=== PATIENT | female | born 1950 | race Caucasian/White ===

== ENCOUNTER 2021-05-29 14:16 | Observation (INO) ==
--- NOTE | 2021-05-29 14:50 | DR.URIAD ---
HPI Time Seen Time Seen by Provider: 05/29/21 14:45 Complaint Chief Complaint Doctors Comments: 70 y/o female presents for evaluation, diagnosed with Covid 5 days ago. Feeling worse. Pt has been previously vaccinated, was treated with regen-Cov. Does have a h/o COPD. Having increasing weakness, generalized body aches, worsening dyspnea. Having chest pain with coughing, inspiration. Pain is sharp, worsens with cough, does not radiate. Nothing makes it better. Having fevers. Cough productive of yellow sputum. Does smoke. Chief Complaint:: Pt was diagnosed with COVID 5 days ago, had Regen-cov infusion on Wednesday, feeling worse since then. Pt reports pain with inspiration, increased weakness, sob, and cough. COVID-19 Coronavirus risk:travel/contact w/high risk person: No Has patient experienced Coronavirus symptoms: Yes Coronavirus symptoms experienced: Fever, Coughing and Shortness of Breath Reviewed Nurses Notes Reviewed: Yes Source History Provided: Patient Mode of Arrival Mode of Arrival: Ambulatory Timing Onset of Chief Complaint: 05/26/21 PMH PMH Past Medical History: Yes Past Medical History: CHF, COPD and Hypothyroidism Past Medical History Comment: osteoporosis, atrial fibrillation Past Surgical History: Yes Surgical History: Appendectomy, Cholecystectomy and Hysterectomy Past Surgical History Comment: back, R shouder replacement Family History History of Family Medical Conditions: Yes Family Medical History: Hypertension Social History Alcohol Use: None Do you use any recreational Drugs:: No Lives Where: Home Travel Risk Coronavirus risk:travel/contact w/high risk person: No Has patient experienced Coronavirus symptoms: Yes Coronavirus symptoms experienced: Fever, Coughing and Shortness of Breath Infectious screening In the last 2 months have you had wt loss of >10#?: NO Have you had fever, night sweats or hemotysis?: No Have you traveled outside the country in the last 6 months?: No Isolation: Droplet ROS Review of Systems Constitutional: Fever and Weakness Eyes: No Symptoms Reported ENTM: No Symptoms Reported Respiratoy: Productive Cough and Short of Breath Cardiovascular: Chest Pain Gastrointestinal/Abdominal: Diarrhea Genitourinary: No Symptoms Reported Neurological: Weakness Musculoskeletal: Muscle Pain Integumentary: No Symptoms Reported Hematologic/Lymphatic: No Symptoms Reported Endocrine: No Symptoms Reported Psychiatric: No Symptoms Reported All Other Systems: Reviewed and Negative PE Vital Signs Vitals: Temperature 98.2 F Pulse Rate 70 Respiratory Rate 18 Blood Pressure [Left Arm] 157/74 Blood Pressure 156/67 O2 Sat by Pulse Oximetry 95 General Limitations: No Limitations General Appearance: Alert and In No Apparent Distress Head Head Exam: Normal Inspection Eyes Eye exam: Normal Appearance ENT ENT Exam: Normal Exam Neck Neck Exam: Normal Inspection, Full ROM and Other (no JVD) Chest Chest Inspection: Normal Inspection Respiratory Respiratory Exam: Bilateral: Rales (at bases) Cardiovascular Cardiovascular Exam: Regular Rate, Normal Rhythm and Normal Heart Sounds Abdominal Exam Abdominal Exam: Normal Inspection, Normal Bowel Sounds and Soft; negative Tenderness Extremeties Extremities Exam: Normal Inspection and Full ROM; negative Edema Back Back Exam: Normal Inspection Neurologic Neurological Exam: Alert, Oriented X3 and CN II-XII Intact; negative Motor Sensory Deficit Psychiatric Psychiatric Exam: Normal Affect Skin Skin Exam: Warm and Dry MDM Differential Diagnosis Differential Diagnosis: Pneumonia (Covid, PE, CHF, exacerbation COPD) COURSE Treatment Treatment: 70 y/o female, h/o COPD, CHF, has been ill with Covid x 5 days, is feeling worse. W/u initiated. 1600 - pO2 low at 51, pulse ox 89% on RA. CXR with mild increased bilateral markings. Probable Covid pneumonia on top of COPD. Labs otherwise acceptable. Discussed findings with pt. Will place on O2, treat with Remdesivir, restart (received initial dose 4 days ago). Will admit for further treatment. Discussed with Dr Cedillo, salesperson books, accepts the admisson. ROR Labs Reviewed Result Diagrams: 05/29/21 15:06 05/29/21 15:06 Laboratory: WBC 7.8 X10^3/uL (3.6-10.0) 05/29/21 15:06 RBC 3.89 X10^6/uL (3.5-5.4) 05/29/21 15:06 Hgb 12.1 g/dL (12.0-16.0) 05/29/21 15:06 Hct 35.6 % (36.0-47.0) L 05/29/21 15:06 MCV 91.6 fL (80.0-100.0) 05/29/21 15:06 MCH 31.1 pg (27.0-34.0) 05/29/21 15:06 MCHC 33.9 g/dL (33.0-35.0) 05/29/21 15:06 RDW 14.3 % (11.6-16.5) 05/29/21 15:06 Plt Count 263 X10^3/uL (150.0-450.0) 05/29/21 15:06 MPV 7.5 fL (7.4-11.0) 05/29/21 15:06 Neut % (Auto) 81.0 % (42.0-75.0) H 05/29/21 15:06 Lymph % (Auto) 10.1 % (21.0-51.0) L 05/29/21 15:06 [place] % (Auto) 7.4 % (0.0-13.0) 05/29/21 15:06 Eos % (Auto) 1.2 % (0.9-2.9) 05/29/21 15:06 Baso % (Auto) 0.3 % (0.2-1.0) 05/29/21 15:06 Neut # (Auto) 6.4 x10^3/uL (2.2-4.8) H 05/29/21 15:06 Lymph # (Auto) 0.8 X10^3/uL (1.3-2.9) L 05/29/21 15:06 [place] # (Auto) 0.6 x10^3/uL (0.3-0.8) 05/29/21 15:06 Eos # (Auto) 0.1 x10^3/uL (0.0-0.2) 05/29/21 15:06 Baso # (Auto) 0.0 X10^3/uL (0.0-0.1) 05/29/21 15:06 Absolute Nucleated RBC 0.0 /100WBC 05/29/21 15:06 D-Dimer 0.48 ug/ml (0.0-0.57) 05/29/21 15:06 Sample Site Lb 05/29/21 15:10 ABG pH 7.490 (7.35-7.45) H 05/29/21 15:10 ABG pCO2 48.0 mmHg (35.0-45.0) H 05/29/21 15:10 ABG pO2 51.0 mmHg (80.0-100.0) L 05/29/21 15:10 ABG HCO3 36.6 mmol/L (22-26) H* 05/29/21 15:10 ABG O2 Saturation 89.0 % (90-100) L 05/29/21 15:10 ABG Base Excess 11.6 mmol/L (-2.0-2.0) H 05/29/21 15:10 Oswaldo Test Pos 05/29/21 15:10 A-a Gradient Not Reportable 05/29/21 15:10 FiO2 21 05/29/21 15:10 Blood Gas Comments Pt chris well cdn 05/29/21 15:10 Sodium 140 mmol/L (136-145) 05/29/21 15:06 Corrected Sodium 141 mmol/L (136-145) 05/29/21 15:06 Potassium 3.8 mmol/L (3.5-5.1) 05/29/21 15:06 Chloride 100 mmol/L (98-107) 05/29/21 15:06 Carbon Dioxide 32.4 mmol/L (21-32) H 05/29/21 15:06 BUN 36 mg/dL (7-18) H 05/29/21 15:06 Creatinine 1.40 mg/dL (0.55-1.02) H 05/29/21 15:06 Est GFR (MDRD) Af Amer 48 (>60) L 05/29/21 15:06 Est GFR (MDRD) Non-Af 39 (>60) L 05/29/21 15:06 Glucose 122 mg/dL (65-99) H 05/29/21 15:06 Calcium 8.8 mg/dL (8.5-10.1) 05/29/21 15:06 Corrected Calcium TNP 05/29/21 15:06 Total Bilirubin 0.40 mg/dL (0.2-1.0) 05/29/21 15:06 AST 20 Units/L (15-37) 05/29/21 15:06 ALT 22 Units/L (12-78) 05/29/21 15:06 Alkaline Phosphatase 84 Units/L (46-116) 05/29/21 15:06 Creatine Kinase 53 Units/L (26-192) 05/29/21 15:06 CK-MB (CK-2) 1.6 ng/mL (0-4.0) 05/29/21 15:06 CK/CKMB % Calc 3.0 % (<4) 05/29/21 15:06 Troponin I < 0.02 ng/mL (0-1.5) 05/29/21 15:06 B-Natriuretic Peptide 84.6 pg/mL (0-79) H 05/29/21 15:06 Total Protein 7.4 g/dL (6.4-8.2) 05/29/21 15:06 Albumin 3.8 g/dL (3.4-5.0) 05/29/21 15:06 Globulin 3.6 g/dL (2.5-4.5) 05/29/21 15:06 Albumin/Globulin Ratio 1.1 Ratio (1.1-2.1) 05/29/21 15:06 Lipase 114 Units/L (73-393) 05/29/21 15:06 EKG Rate: 70 [place]: Normal Rhythm: NSR Block: LBBB ST: Nonsp Opioid Opioid Risk Tool Age (Jalen box if 16-45): No History of Preadolescent Sexual Abuse: No Total: 0 Total Score Risk Category: Low Risk Copyright: Lc CANO predicting aberrant behaviors Diagnosis Discharge Problem: Pneumonia due to COVID-19 virus, Hypoxia Instructions Forms: Precautions for COVID19 [facility] Social Distancing
[2021-05-29] MEDS ORDERED: NS 500 ML IV 500 ML IV ONE ×2 (14:53→15:08)
[2021-05-29 15:14] LABS: BASOPHILS % (AUTO) 0.3 % (0.2-1.0); EOSINOPHILS # (AUTO) 0.1 x10^3/uL (0.0-0.2); EOSINOPHILS % (AUTO) 1.2 % (0.9-2.9); HEMATOCRIT 35.6 % (36.0-47.0); HEMOGLOBIN 12.1 g/dL (12.0-16.0); LYMPHOCYTES # (AUTO) 0.8 X10^3/uL (1.3-2.9); LYMPHOCYTES % (AUTO) 10.1 % (21.0-51.0); MEAN CORPUSCULAR HEMOGLOBIN 31.1 pg (27.0-34.0); MEAN CORPUSCULAR HGB CONC 33.9 g/dL (33.0-35.0); MEAN CORPUSCULAR VOLUME 91.6 fL (80.0-100.0); MEAN PLATELET VOLUME 7.5 fL (7.4-11.0); MONOCYTES # (AUTO) 0.6 x10^3/uL (0.3-0.8); MONOCYTES % (AUTO) 7.4 % (0.0-13.0); NEUTROPHILS # (AUTO) 6.4 x10^3/uL (2.2-4.8); PLATELET COUNT 263 X10^3/uL (150.0-450.0); RED BLOOD COUNT 3.89 X10^6/uL (3.5-5.4); RED CELL DISTRIBUTION WIDTH 14.3 % (11.6-16.5); WHITE BLOOD COUNT 7.8 X10^3/uL (3.6-10.0)
[2021-05-29 15:16] LABS: ABG BASE EXCESS 11.6 mmol/L (-2.0-2.0)
[2021-05-29 15:17] LABS: ABG HCO3 36.6 mmol/L (22-26)
[2021-05-29 15:19] LABS: ABG ALLEN TEST POS
[2021-05-29 15:36] LABS: ALANINE AMINOTRANSFERASE 22 Units/L (12-78); ALBUMIN 3.8 g/dL (3.4-5.0); ALKALINE PHOSPHATASE 84 Units/L (46-116); ASPARTATE AMINO TRANSFERASE 20 Units/L (15-37); BLOOD UREA NITROGEN 36 mg/dL (7-18); CALCIUM 8.8 mg/dL (8.5-10.1); CARBON DIOXIDE 32.4 mmol/L (21-32); CHLORIDE 100 mmol/L (98-107); COR NA(FOR HYPERGLY) 141 mmol/L (136-145); CREATINE KINASE 53 Units/L (26-192); CREATINE KINASE MB 1.6 ng/mL (0-4.0); LIPASE 114 Units/L (73-393); SODIUM 140 mmol/L (136-145); TOTAL PROTEIN 7.4 g/dL (6.4-8.2); TROPONIN I < 0.02 ng/mL (0-1.5); eGFR NON BLACK RACES 39 (>60)
[2021-05-29] MEDS ORDERED: REMDESIVIR 200 MG in NS 250 ML IV 250 ML IV ONE (15:39)
[2021-05-29] MEDS ORDERED: SOLU-Medrol 125 MG VIAL IVP ONE (15:46)
[2021-05-29] MEDS ORDERED: TYLENOL 325 MG TAB PO ONE ×2 (15:46→15:48)
[2021-05-29] MEDS ORDERED: BENADRYL INJ 50 MG VIAL IVP ONE (15:46)
[2021-05-29] MEDS ORDERED: REMDESIVIR IV ONE (15:48)
[2021-05-29] MEDS ORDERED: BENADRYL INJ 50 MG VIAL ONE (15:48)
[2021-05-29] MEDS ORDERED: SOLU-Medrol 125 MG VIAL ONE (15:48)
[2021-05-29] MEDS ORDERED: NS 250 ML IV 250 ML IV ONE (15:49)
[2021-05-29] MEDS ORDERED: ZANAFLEX PO PRN (16:08)
[2021-05-29] MEDS ORDERED: ZITHROMAX TAB 250 MG PO ONE (16:13)
[2021-05-29 17:48] VITALS: BMI 21.4
[2021-05-29] MEDS ORDERED: COLACE CAP 100 MG PO PRN (18:35)
[2021-05-29] MEDS ORDERED: PULMICORT NEB TX 0.5 MG NEB ONE (19:54)
[2021-05-29] MEDS ORDERED: BROVANA ONE (19:55)
[2021-05-29] MEDS: TESSALON PERLES PO PRN (20:11)
[2021-05-29] MEDS: BROVANA IN SCH (20:27)
[2021-05-29] MEDS: PULMICORT NEB TX 0.5 MG NEB SCH (20:27)
[2021-05-29] MEDS ORDERED: BROVANA IN SCH (21:00)
[2021-05-29] MEDS ORDERED: PULMICORT NEB TX 0.5 MG NEB SCH (21:00)
[2021-05-29] MEDS: SOLU-Medrol 40 MG VIAL IVP SCH (21:09)
[2021-05-30] MEDS: ULTRAM PO PRN ×2 (02:22→09:17)
[2021-05-30] MEDS ORDERED: NORCO 5/325 MG TAB PO ONE (04:12)
[2021-05-30] MEDS ORDERED: NORCO 5/325 MG TAB ONE (04:13)
[2021-05-30 04:50] LABS: BASOPHILS # (AUTO) 0.1 X10^3/uL (0.0-0.1); BASOPHILS % (AUTO) 0.6 % (0.2-1.0); HEMATOCRIT 32.6 % (36.0-47.0); HEMOGLOBIN 11.3 g/dL (12.0-16.0); LYMPHOCYTES # (AUTO) 0.8 X10^3/uL (1.3-2.9); LYMPHOCYTES % (AUTO) 9.1 % (21.0-51.0); MEAN CORPUSCULAR HEMOGLOBIN 31.4 pg (27.0-34.0); MEAN CORPUSCULAR HGB CONC 34.5 g/dL (33.0-35.0); MEAN PLATELET VOLUME 7.9 fL (7.4-11.0); MONOCYTES # (AUTO) 0.3 x10^3/uL (0.3-0.8); MONOCYTES % (AUTO) 3.6 % (0.0-13.0); NEUTROPHILS % (AUTO) 86.7 % (42.0-75.0); PLATELET COUNT 238 X10^3/uL (150.0-450.0); RED BLOOD COUNT 3.58 X10^6/uL (3.5-5.4); RED CELL DISTRIBUTION WIDTH 14.4 % (11.6-16.5); WHITE BLOOD COUNT 9.2 X10^3/uL (3.6-10.0)
[2021-05-30 05:09] LABS: ALBUMIN 3.2 g/dL (3.4-5.0); CALCIUM 8.5 mg/dL (8.5-10.1); CARBON DIOXIDE 31.1 mmol/L (21-32); COR CA(FOR HYPOALB) 9.1 mg/dL (8.5-10.1); CREATININE 1.21 mg/dL (0.55-1.02); TOTAL PROTEIN 6.7 g/dL (6.4-8.2)
[2021-05-30 05:11] LABS: CREATINE KINASE 47 Units/L (26-192); CREATINE KINASE MB 1.9 ng/mL (0-4.0); TROPONIN I < 0.02 ng/mL (0-1.5)
[2021-05-30] MEDS: SOLU-Medrol 40 MG VIAL IVP SCH ×3 (06:10→21:05)
[2021-05-30] MEDS: BROVANA IN SCH ×2 (07:55→20:28)
[2021-05-30] MEDS: PULMICORT NEB TX 0.5 MG NEB SCH ×2 (07:55→20:28)
[2021-05-30] MEDS ORDERED: CELEXA PO SCH (09:00)
[2021-05-30] MEDS ORDERED: MOBIC TAB 15 MG PO SCH (09:00)
[2021-05-30] MEDS ORDERED: MIACALCIN NASAL SPRAY NAS SCH (09:00)
[2021-05-30] MEDS ORDERED: PROTONIX TAB 40 MG PO SCH (09:00)
[2021-05-30] MEDS: ELIQUIS PO SCH ×2 (09:08→21:04)
[2021-05-30] MEDS: ZITHROMAX TAB 250 MG PO SCH (09:09)
[2021-05-30] MEDS: REMDESIVIR 100 MG in NS 100 ML IV + SPIKE MINIBAG* 120 ML IV SCH (09:09)
--- NOTE | 2021-05-30 13:23 | DR.H&P ---
H&P History & Physical for Day of: H&P Date: 05/29/21 Chief Complaint Chief Complaint: SOB Allergies Allergies Allergy/AdvReac Type Severity Reaction Status Date / Time codeine Allergy Verified 05/29/21 14:16 morphine Allergy Verified 05/29/21 14:16 History of Present Illness History of Present Illness: 70 yo wf with recent Covid-19 diagnoses. She received Regen Cov earlier this weeks but has not completely gotten well yet. In the ER she has a low O2 sat in the 90's. She was admitted to receive Remdesivir protocol. Past Medical History Past Medical History: CHF, COPD, Depression and Hypothyroidism Past Surgical History Surgical History: Appendectomy, Cholecystectomy and Hysterectomy Family History Family Medical History: Hypertension Social History Does patient currently use any type of tobacco product: Yes Have you used tobacco products in the last 12 months: Yes Type of Tobacco Use: Cigarettes Alcohol Use: None Medications Home Medications: codeine Allergy (Verified 05/29/21 14:16) morphine Allergy (Verified 05/29/21 14:16) CONTINUE taking the following medications apixaban [Eliquis] 5 mg PO BID 05/29/21 [History] furosemide 40 mg PO BID 05/29/21 [History] duloxetine [Cymbalta] 60 mg PO BID 05/30/21 [History] levothyroxine [Synthroid] 50 mcg PO DAILY 05/30/21 [History] lisinopril [Zestril] 10 mg PO DAILY 05/30/21 [History] metoprolol succinate [Toprol XL] 25 mg PO DAILY 05/30/21 [History] mirtazapine [Remeron] 15 mg PO HS 05/30/21 [History] oxycodone 20 mg PO TID 05/30/21 [History] sertraline [Zoloft] 100 mg PO DAILY 05/30/21 [History] tizanidine [Zanaflex] 4 mg PO BID PRN 05/30/21 [History] Labs Result Diagrams: 05/30/21 04:32 05/30/21 04:32 Labs: Laboratory WBC 9.2 X10^3/uL (3.6-10.0) 05/30/21 04:32 RBC 3.58 X10^6/uL (3.5-5.4) 05/30/21 04:32 Hgb 11.3 g/dL (12.0-16.0) L 05/30/21 04:32 Hct 32.6 % (36.0-47.0) L 05/30/21 04:32 MCV 91.0 fL (80.0-100.0) 05/30/21 04:32 MCH 31.4 pg (27.0-34.0) 05/30/21 04:32 MCHC 34.5 g/dL (33.0-35.0) 05/30/21 04:32 RDW 14.4 % (11.6-16.5) 05/30/21 04:32 Plt Count 238 X10^3/uL (150.0-450.0) 05/30/21 04:32 MPV 7.9 fL (7.4-11.0) 05/30/21 04:32 Neut % (Auto) 86.7 % (42.0-75.0) H 05/30/21 04:32 Lymph % (Auto) 9.1 % (21.0-51.0) L 05/30/21 04:32 [place] % (Auto) 3.6 % (0.0-13.0) 05/30/21 04:32 Eos % (Auto) 0.0 % (0.9-2.9) L 05/30/21 04:32 Baso % (Auto) 0.6 % (0.2-1.0) 05/30/21 04:32 Neut # (Auto) 8.0 x10^3/uL (2.2-4.8) H 05/30/21 04:32 Lymph # (Auto) 0.8 X10^3/uL (1.3-2.9) L 05/30/21 04:32 [place] # (Auto) 0.3 x10^3/uL (0.3-0.8) 05/30/21 04:32 Eos # (Auto) 0.0 x10^3/uL (0.0-0.2) 05/30/21 04:32 Baso # (Auto) 0.1 X10^3/uL (0.0-0.1) 05/30/21 04:32 Absolute Nucleated RBC 0.1 /100WBC 05/30/21 04:32 D-Dimer 0.48 ug/ml (0.0-0.57) 05/29/21 15:06 Sample Site Lb 05/29/21 15:10 ABG pH 7.490 (7.35-7.45) H 05/29/21 15:10 ABG pCO2 48.0 mmHg (35.0-45.0) H 05/29/21 15:10 ABG pO2 51.0 mmHg (80.0-100.0) L 05/29/21 15:10 ABG HCO3 36.6 mmol/L (22-26) H* 05/29/21 15:10 ABG O2 Saturation 89.0 % (90-100) L 05/29/21 15:10 ABG Base Excess 11.6 mmol/L (-2.0-2.0) H 05/29/21 15:10 Oswaldo Test Pos 05/29/21 15:10 A-a Gradient Not Reportable 05/29/21 15:10 FiO2 21 05/29/21 15:10 Blood Gas Comments Pt chris well cdn 05/29/21 15:10 Sodium 139 mmol/L (136-145) 05/30/21 04:32 Corrected Sodium 140 mmol/L (136-145) 05/30/21 04:32 Potassium 4.4 mmol/L (3.5-5.1) 05/30/21 04:32 Chloride 102 mmol/L (98-107) 05/30/21 04:32 Carbon Dioxide 31.1 mmol/L (21-32) 05/30/21 04:32 BUN 34 mg/dL (7-18) H 05/30/21 04:32 Creatinine 1.21 mg/dL (0.55-1.02) H 05/30/21 04:32 Est GFR (MDRD) Af Amer 56 (>60) L 05/30/21 04:32 Est GFR (MDRD) Non-Af 46 (>60) L 05/30/21 04:32 Glucose 125 mg/dL (65-99) H 05/30/21 04:32 Calcium 8.5 mg/dL (8.5-10.1) 05/30/21 04:32 Corrected Calcium 9.1 mg/dL (8.5-10.1) 05/30/21 04:32 Total Bilirubin 0.30 mg/dL (0.2-1.0) 05/30/21 04:32 AST 19 Units/L (15-37) 05/30/21 04:32 ALT 17 Units/L (12-78) 05/30/21 04:32 Alkaline Phosphatase 74 Units/L (46-116) 05/30/21 04:32 Creatine Kinase 47 Units/L (26-192) 05/30/21 04:32 CK-MB (CK-2) 1.9 ng/mL (0-4.0) 05/30/21 04:32 CK/CKMB % Calc 4.0 % (<4) 05/30/21 04:32 Troponin I < 0.02 ng/mL (0-1.5) 05/30/21 04:32 B-Natriuretic Peptide 84.6 pg/mL (0-79) H 05/29/21 15:06 Total Protein 6.7 g/dL (6.4-8.2) 05/30/21 04:32 Albumin 3.2 g/dL (3.4-5.0) L 05/30/21 04:32 Globulin 3.5 g/dL (2.5-4.5) 05/30/21 04:32 Albumin/Globulin Ratio 0.9 Ratio (1.1-2.1) L 05/30/21 04:32 Lipase 114 Units/L (73-393) 05/29/21 15:06 Review of Systems Constitutional: Sweats, Weakness and Malaise Eyes: No Symptoms Reported ENT: Nose Congestion Respiratory: Cough, Dry, Shortness of Breath and SOB with Excertion Cardiovascular: Chest Pain Gastrointestinal: No Symptoms Reported Genitourinary: No Symptoms Reported Musculoskeletal: Other (Generalized pain.) Neurological: Weakness Physical Exam Vital Signs: Temperature 98.2 F Pulse Rate [Left Brachial] 72 Pulse Rate 70 Respiratory Rate 16 Blood Pressure [Left Arm] 156/70 Blood Pressure 156/67 O2 Sat by Pulse Oximetry 96 Oriented: Normal Eyes: Normal Ear: Normal Nose: Injected Throat: Normal Respiratory: Diminished Throughout Cardiovascular: Normal Auscultation: Bowel Sounds: Normal Palpation: Normal Tenderness: Normal Skin: Normal Musculoskeletal: Normal Psychiatric: Anxiety Mood Description: Anxious Affect: Anxious Speech Pattern: Clear and Appropriate Assessment/Plan (1) COVID-19: Status: Acute Plan: Regen Cov protocol. (2) Hypoxia: Status: Acute Plan: Nebs and IV Solumedrol (3) Pleurisy: Status: Acute Plan: Resume patients Oxycodone. (4) HTN (hypertension): Status: Acute Plan: monitor bp. Review H&P Reviewed: Yes Patient was examined?: Yes
--- NOTE | 2021-05-30 13:27 | PCM.PROG ---
Progress Note Progress Note for Day of Date of Exam: 05/30/21 Subjective Subjective: Feels better but still has chest pain with deep breathing and coughing. Pt seems anxious. Past Medical Family Social History Past Med/Fam/Surg Hx: No changes since H&P Allergies: Allergies codeine Allergy (Verified 05/29/21 14:16) morphine Allergy (Verified 05/29/21 14:16) Review of Systems ROS: No change since H&P Vital Signs and I&O's Vital Signs: Temperature 98.2 F Pulse Rate [Left Brachial] 72 Pulse Rate 70 Respiratory Rate 16 Blood Pressure [Left Arm] 156/70 Blood Pressure 156/67 O2 Sat by Pulse Oximetry 96 Intake and Output: Intake & Output 05/28/21 05/29/21 05/30/21 05/31/21 11:59 11:59 11:59 11:59 Intake Total 280 / 280 Balance 280 / 280 Physical Exam Oriented: Normal Eyes: Normal Ear: Normal Nose: Injected Throat: Normal Respiratory: Generalized and Diminished Cardiovascular: Normal Auscultation: Bowel Sounds: Normal Tenderness: Normal Skin: Normal Musculoskeletal: Normal Psychiatric: Anxiety Mood Description: Anxious Affect: Anxious Speech Pattern: Clear and Appropriate Laboratory and Diagnostics Result Diagrams: 05/30/21 04:32 05/30/21 04:32 Labs: Laboratory WBC 9.2 X10^3/uL (3.6-10.0) 05/30/21 04:32 RBC 3.58 X10^6/uL (3.5-5.4) 05/30/21 04:32 Hgb 11.3 g/dL (12.0-16.0) L 05/30/21 04:32 Hct 32.6 % (36.0-47.0) L 05/30/21 04:32 MCV 91.0 fL (80.0-100.0) 05/30/21 04:32 MCH 31.4 pg (27.0-34.0) 05/30/21 04:32 MCHC 34.5 g/dL (33.0-35.0) 05/30/21 04:32 RDW 14.4 % (11.6-16.5) 05/30/21 04:32 Plt Count 238 X10^3/uL (150.0-450.0) 05/30/21 04:32 MPV 7.9 fL (7.4-11.0) 05/30/21 04:32 Neut % (Auto) 86.7 % (42.0-75.0) H 05/30/21 04:32 Lymph % (Auto) 9.1 % (21.0-51.0) L 05/30/21 04:32 [place] % (Auto) 3.6 % (0.0-13.0) 05/30/21 04:32 Eos % (Auto) 0.0 % (0.9-2.9) L 05/30/21 04:32 Baso % (Auto) 0.6 % (0.2-1.0) 05/30/21 04:32 Neut # (Auto) 8.0 x10^3/uL (2.2-4.8) H 05/30/21 04:32 Lymph # (Auto) 0.8 X10^3/uL (1.3-2.9) L 05/30/21 04:32 [place] # (Auto) 0.3 x10^3/uL (0.3-0.8) 05/30/21 04:32 Eos # (Auto) 0.0 x10^3/uL (0.0-0.2) 05/30/21 04:32 Baso # (Auto) 0.1 X10^3/uL (0.0-0.1) 05/30/21 04:32 Absolute Nucleated RBC 0.1 /100WBC 05/30/21 04:32 D-Dimer 0.48 ug/ml (0.0-0.57) 05/29/21 15:06 Sample Site Lb 05/29/21 15:10 ABG pH 7.490 (7.35-7.45) H 05/29/21 15:10 ABG pCO2 48.0 mmHg (35.0-45.0) H 05/29/21 15:10 ABG pO2 51.0 mmHg (80.0-100.0) L 05/29/21 15:10 ABG HCO3 36.6 mmol/L (22-26) H* 05/29/21 15:10 ABG O2 Saturation 89.0 % (90-100) L 05/29/21 15:10 ABG Base Excess 11.6 mmol/L (-2.0-2.0) H 05/29/21 15:10 Oswaldo Test Pos 05/29/21 15:10 A-a Gradient Not Reportable 05/29/21 15:10 FiO2 21 05/29/21 15:10 Blood Gas Comments Pt chris well cdn 05/29/21 15:10 Sodium 139 mmol/L (136-145) 05/30/21 04:32 Corrected Sodium 140 mmol/L (136-145) 05/30/21 04:32 Potassium 4.4 mmol/L (3.5-5.1) 05/30/21 04:32 Chloride 102 mmol/L (98-107) 05/30/21 04:32 Carbon Dioxide 31.1 mmol/L (21-32) 05/30/21 04:32 BUN 34 mg/dL (7-18) H 05/30/21 04:32 Creatinine 1.21 mg/dL (0.55-1.02) H 05/30/21 04:32 Est GFR (MDRD) Af Amer 56 (>60) L 05/30/21 04:32 Est GFR (MDRD) Non-Af 46 (>60) L 05/30/21 04:32 Glucose 125 mg/dL (65-99) H 05/30/21 04:32 Calcium 8.5 mg/dL (8.5-10.1) 05/30/21 04:32 Corrected Calcium 9.1 mg/dL (8.5-10.1) 05/30/21 04:32 Total Bilirubin 0.30 mg/dL (0.2-1.0) 05/30/21 04:32 AST 19 Units/L (15-37) 05/30/21 04:32 ALT 17 Units/L (12-78) 05/30/21 04:32 Alkaline Phosphatase 74 Units/L (46-116) 05/30/21 04:32 Creatine Kinase 47 Units/L (26-192) 05/30/21 04:32 CK-MB (CK-2) 1.9 ng/mL (0-4.0) 05/30/21 04:32 CK/CKMB % Calc 4.0 % (<4) 05/30/21 04:32 Troponin I < 0.02 ng/mL (0-1.5) 05/30/21 04:32 B-Natriuretic Peptide 84.6 pg/mL (0-79) H 05/29/21 15:06 Total Protein 6.7 g/dL (6.4-8.2) 05/30/21 04:32 Albumin 3.2 g/dL (3.4-5.0) L 05/30/21 04:32 Globulin 3.5 g/dL (2.5-4.5) 05/30/21 04:32 Albumin/Globulin Ratio 0.9 Ratio (1.1-2.1) L 05/30/21 04:32 Lipase 114 Units/L (73-393) 05/29/21 15:06 Radiology Reviewed: Yes Plan (1) COVID-19: Status: Acute Narrative Support Text: Improving. Possible discharge home in am. Plan: Regen Cov protocol. (2) Hypoxia: Status: Acute Narrative Support Text: Much improved. Plan: Nebs and IV Solumedrol. (3) Pleurisy: Status: Acute Plan: Resume patients Oxycodone. (4) HTN (hypertension): Status: Acute Plan: Resume home BP meds. (5) Dehydration: Status: Acute Narrative Support Text: Improving. Plan: Continue IVF hydration.
[2021-05-30] MEDS: TOPROL XL PO SCH (13:30)
[2021-05-30] MEDS: ZESTRIL TAB 10 MG PO SCH (13:31)
[2021-05-30] MEDS: SYNTHROID 50 mcg TAB PO SCH (13:31)
[2021-05-30] MEDS: ROXICODONE TAB 5 MG PO SCH ×2 (13:31→21:04)
[2021-05-30] MEDS: CYMBALTA PO SCH ×2 (13:31→21:03)
[2021-05-30] MEDS: REMERON PO SCH (21:04)
[2021-05-31] MEDS: ROXICODONE TAB 5 MG PO SCH ×3 (05:01→22:00)
[2021-05-31] MEDS: SOLU-Medrol 40 MG VIAL IVP SCH ×3 (05:01→22:00)
[2021-05-31 05:13] LABS: BASOPHILS % (AUTO) 0.2 % (0.2-1.0); HEMATOCRIT 31.9 % (36.0-47.0); HEMOGLOBIN 10.8 g/dL (12.0-16.0); LYMPHOCYTES # (AUTO) 0.6 X10^3/uL (1.3-2.9); LYMPHOCYTES % (AUTO) 4.5 % (21.0-51.0); MEAN CORPUSCULAR HEMOGLOBIN 30.9 pg (27.0-34.0); MEAN CORPUSCULAR HGB CONC 33.9 g/dL (33.0-35.0); MEAN PLATELET VOLUME 8.1 fL (7.4-11.0); MONOCYTES # (AUTO) 0.7 x10^3/uL (0.3-0.8); MONOCYTES % (AUTO) 5.2 % (0.0-13.0); NEUTROPHILS # (AUTO) 11.4 x10^3/uL (2.2-4.8); NEUTROPHILS % (AUTO) 90.1 % (42.0-75.0); PLATELET COUNT 259 X10^3/uL (150.0-450.0); RED CELL DISTRIBUTION WIDTH 14.5 % (11.6-16.5); WHITE BLOOD COUNT 12.7 X10^3/uL (3.6-10.0)
[2021-05-31 05:36] LABS: METAMYELOCYTES % 4; PLATELET MORPHOLOGY COMMENT NORMAL (NORMAL)
[2021-05-31 05:47] LABS: ALBUMIN 2.8 g/dL (3.4-5.0); CALCIUM 8.4 mg/dL (8.5-10.1); CARBON DIOXIDE 31.3 mmol/L (21-32); COR CA(FOR HYPOALB) 9.4 mg/dL (8.5-10.1); CREATININE 1.15 mg/dL (0.55-1.02); TOTAL PROTEIN 6.1 g/dL (6.4-8.2)
--- NOTE | 2021-05-31 08:35 | RAD ---
HISTORYCOVID PNEU,ONIA HX: HTN, CHF SX: APPENDECTOMY, GB, HYSTERECTOMYSTUDYCHEST, 1 [id number] silhouette is normal in size. Lungs are hyperinflated with stable coarsened interstitial markings, suggestive of COPD. No focal infiltrate or significant effusion is identified. No pneumothorax.IMPRESSIONNo acute cardiopulmonary abnormality.Stable findings suggestive of COPD.Electronically signed by: FRANK SIMMS (May 31, 2021 08:33:11)
[2021-05-31] MEDS: CYMBALTA PO SCH ×2 (08:39→22:00)
[2021-05-31] MEDS: ZITHROMAX TAB 250 MG PO SCH (08:39)
[2021-05-31] MEDS: SYNTHROID 50 mcg TAB PO SCH (08:39)
[2021-05-31] MEDS: ELIQUIS PO SCH ×2 (08:39→22:00)
[2021-05-31] MEDS: REMDESIVIR 100 MG in NS 100 ML IV + SPIKE MINIBAG* 120 ML IV SCH (08:40)
[2021-05-31] MEDS: ZESTRIL TAB 10 MG PO SCH (08:40)
[2021-05-31] MEDS: TOPROL XL PO SCH (08:40)
[2021-05-31] MEDS: ULTRAM PO PRN ×2 (08:45→18:11)
[2021-05-31] MEDS: BROVANA IN SCH ×2 (09:00→20:51)
[2021-05-31] MEDS: PULMICORT NEB TX 0.5 MG NEB SCH ×2 (09:00→20:51)
[2021-05-31 10:51] LABS: CKMB % 5.4 % (<4); CREATINE KINASE 39 Units/L (26-192); CREATINE KINASE MB 2.1 ng/mL (0-4.0); TROPONIN I < 0.02 ng/mL (0-1.5)
[2021-05-31 11:23] LABS: ABG BASE EXCESS 8.4 mmol/L (-2.0-2.0)
[2021-05-31 11:31] LABS: ABG ALLEN TEST POSITIVE
[2021-05-31] MEDS: MAALOX or MYLANTA PO PRN (20:18)
[2021-05-31] MEDS: REMERON PO SCH (22:00)
[2021-06-01] MEDS: MAALOX or MYLANTA PO PRN ×2 (00:49→22:43)
[2021-06-01] MEDS: TESSALON PERLES PO PRN ×2 (00:49→21:15)
[2021-06-01 04:47] LABS: BASOPHILS % (AUTO) 0.2 % (0.2-1.0); HEMATOCRIT 31.9 % (36.0-47.0); HEMOGLOBIN 10.8 g/dL (12.0-16.0); LYMPHOCYTES # (AUTO) 0.6 X10^3/uL (1.3-2.9); LYMPHOCYTES % (AUTO) 4.6 % (21.0-51.0); MEAN CORPUSCULAR HEMOGLOBIN 31.2 pg (27.0-34.0); MEAN CORPUSCULAR VOLUME 91.7 fL (80.0-100.0); MEAN PLATELET VOLUME 8.1 fL (7.4-11.0); MONOCYTES # (AUTO) 0.5 x10^3/uL (0.3-0.8); MONOCYTES % (AUTO) 3.9 % (0.0-13.0); NEUTROPHILS # (AUTO) 12.2 x10^3/uL (2.2-4.8); NEUTROPHILS % (AUTO) 91.3 % (42.0-75.0); PLATELET COUNT 250 X10^3/uL (150.0-450.0); RED BLOOD COUNT 3.48 X10^6/uL (3.5-5.4); RED CELL DISTRIBUTION WIDTH 14.5 % (11.6-16.5); WHITE BLOOD COUNT 13.4 X10^3/uL (3.6-10.0)
[2021-06-01 04:56] LABS: ALBUMIN 2.7 g/dL (3.4-5.0); CALCIUM 8.3 mg/dL (8.5-10.1); CARBON DIOXIDE 33.6 mmol/L (21-32); COR CA(FOR HYPOALB) 9.3 mg/dL (8.5-10.1); CREATININE 1.32 mg/dL (0.55-1.02); TOTAL PROTEIN 5.9 g/dL (6.4-8.2)
[2021-06-01 05:12] LABS: PLATELET MORPHOLOGY COMMENT NORMAL (NORMAL)
[2021-06-01] MEDS: SOLU-Medrol 40 MG VIAL IVP SCH ×3 (05:52→21:15)
[2021-06-01] MEDS: ROXICODONE TAB 5 MG PO SCH ×3 (06:34→21:15)
[2021-06-01] MEDS: BROVANA IN SCH ×2 (08:20→21:15)
[2021-06-01] MEDS: PULMICORT NEB TX 0.5 MG NEB SCH ×2 (08:20→21:15)
[2021-06-01] MEDS: TOPROL XL PO SCH (08:36)
[2021-06-01] MEDS: CYMBALTA PO SCH ×2 (08:36→20:50)
[2021-06-01] MEDS: SYNTHROID 50 mcg TAB PO SCH (08:36)
[2021-06-01] MEDS: ZITHROMAX TAB 250 MG PO SCH (08:36)
[2021-06-01] MEDS: ZESTRIL TAB 10 MG PO SCH (08:36)
[2021-06-01] MEDS: ELIQUIS PO SCH ×2 (08:36→20:50)
[2021-06-01] MEDS: REMDESIVIR 100 MG in NS 100 ML IV + SPIKE MINIBAG* 120 ML IV SCH (08:36)
[2021-06-01] MEDS ORDERED: OMEPRAZOLE 40 MG PO SCH (11:45)
[2021-06-01] MEDS: LASIX IVP SCH (12:51)
[2021-06-01] MEDS: REMERON PO SCH (20:50)
[2021-06-02] MEDS: SOLU-Medrol 40 MG VIAL IVP SCH ×3 (05:24→21:40)
[2021-06-02] MEDS: ROXICODONE TAB 5 MG PO SCH ×3 (05:39→21:39)
[2021-06-02] MEDS: TESSALON PERLES PO PRN ×2 (05:39→21:40)
[2021-06-02 06:20] LABS: BASOPHILS % (AUTO) 0.1 % (0.2-1.0); HEMATOCRIT 33.1 % (36.0-47.0); HEMOGLOBIN 11.3 g/dL (12.0-16.0); LYMPHOCYTES # (AUTO) 0.8 X10^3/uL (1.3-2.9); LYMPHOCYTES % (AUTO) 5.3 % (21.0-51.0); MEAN CORPUSCULAR HEMOGLOBIN 31.3 pg (27.0-34.0); MEAN CORPUSCULAR HGB CONC 34.2 g/dL (33.0-35.0); MEAN CORPUSCULAR VOLUME 91.3 fL (80.0-100.0); MEAN PLATELET VOLUME 7.7 fL (7.4-11.0); MONOCYTES # (AUTO) 0.9 x10^3/uL (0.3-0.8); MONOCYTES % (AUTO) 6.1 % (0.0-13.0); NEUTROPHILS # (AUTO) 12.7 x10^3/uL (2.2-4.8); NEUTROPHILS % (AUTO) 88.5 % (42.0-75.0); PLATELET COUNT 262 X10^3/uL (150.0-450.0); RED BLOOD COUNT 3.62 X10^6/uL (3.5-5.4); RED CELL DISTRIBUTION WIDTH 14.6 % (11.6-16.5); WHITE BLOOD COUNT 14.3 X10^3/uL (3.6-10.0)
[2021-06-02 06:25] LABS: ALBUMIN 2.7 g/dL (3.4-5.0); CALCIUM 8.5 mg/dL (8.5-10.1); CARBON DIOXIDE 30.6 mmol/L (21-32); COR CA(FOR HYPOALB) 9.5 mg/dL (8.5-10.1); CREATININE 1.15 mg/dL (0.55-1.02); TOTAL PROTEIN 5.6 g/dL (6.4-8.2)
[2021-06-02 07:10] LABS: BAND NEUTROPHILS % 1 % (0-10); METAMYELOCYTES % 3; MYELOCYTES % 2
[2021-06-02 07:11] LABS: PLATELET MORPHOLOGY COMMENT NORMAL (NORMAL)
[2021-06-02] MEDS: ZITHROMAX TAB 250 MG PO SCH (08:39)
[2021-06-02] MEDS: SYNTHROID 50 mcg TAB PO SCH (08:39)
[2021-06-02] MEDS: REMDESIVIR 100 MG in NS 100 ML IV + SPIKE MINIBAG* 120 ML IV SCH (08:39)
[2021-06-02] MEDS: CYMBALTA PO SCH ×2 (08:39→21:39)
[2021-06-02] MEDS: TOPROL XL PO SCH (08:40)
[2021-06-02] MEDS: ZESTRIL TAB 10 MG PO SCH (08:40)
[2021-06-02] MEDS: PriLOSEC PO SCH (08:40)
[2021-06-02] MEDS: LASIX IVP SCH (08:40)
[2021-06-02] MEDS: ELIQUIS PO SCH ×2 (08:40→21:40)
[2021-06-02] MEDS: BROVANA IN SCH ×2 (08:55→21:08)
[2021-06-02] MEDS: PULMICORT NEB TX 0.5 MG NEB SCH ×2 (08:55→21:08)
[2021-06-02] MEDS: MAALOX or MYLANTA PO PRN (14:49)
--- NOTE | 2021-06-02 19:02 | PCM.PROG ---
Progress Note Progress Note for Day of Date of Exam: 06/02/21 Subjective Subjective: Feels better. No SOB. Past Medical Family Social History Past Med/Fam/Surg Hx: No changes since H&P Allergies: Allergies codeine Allergy (Verified 05/29/21 14:16) morphine Allergy (Verified 05/29/21 14:16) Review of Systems ROS: No change since H&P Vital Signs and I&O's Vital Signs: Temperature 98.2 F Pulse Rate [Left Brachial] 55 Pulse Rate 58 Respiratory Rate 16 Blood Pressure [Left Arm] 129/62 Blood Pressure 156/67 O2 Sat by Pulse Oximetry 95 Intake and Output: Intake & Output 05/31/21 06/01/21 06/02/21 06/03/21 11:59 11:59 11:59 11:59 Intake Total 1140 / 1140 1130 / 1130 1270 / 1270 520 / 520 Output Total 2650 / 2650 1400 / 1400 Balance 1140 / 1140 1130 / 1130 -1380 / -1380 -880 / -880 Physical Exam Oriented: Normal Eyes: Normal Ear: Normal Nose: Normal Respiratory: Normal Cardiovascular: Normal Auscultation: Bowel Sounds: Normal Tenderness: Normal Skin: Normal Musculoskeletal: negative Normal Psychiatric: Normal Affect: Normal Speech Pattern: Clear Laboratory and Diagnostics Result Diagrams: 06/02/21 05:32 06/02/21 05:32 Labs: Laboratory WBC 14.3 X10^3/uL (3.6-10.0) H 06/02/21 05:32 RBC 3.62 X10^6/uL (3.5-5.4) 06/02/21 05:32 Hgb 11.3 g/dL (12.0-16.0) L 06/02/21 05:32 Hct 33.1 % (36.0-47.0) L 06/02/21 05:32 MCV 91.3 fL (80.0-100.0) 06/02/21 05:32 MCH 31.3 pg (27.0-34.0) 06/02/21 05:32 MCHC 34.2 g/dL (33.0-35.0) 06/02/21 05:32 RDW 14.6 % (11.6-16.5) 06/02/21 05:32 Plt Count 262 X10^3/uL (150.0-450.0) 06/02/21 05:32 Plt Count Comment Adequate (ADEQUATE) 06/02/21 05:32 MPV 7.7 fL (7.4-11.0) 06/02/21 05:32 Neut % (Auto) 88.5 % (42.0-75.0) H 06/02/21 05:32 Lymph % (Auto) 5.3 % (21.0-51.0) L 06/02/21 05:32 [place] % (Auto) 6.1 % (0.0-13.0) 06/02/21 05:32 Eos % (Auto) 0.0 % (0.9-2.9) L 06/02/21 05:32 Baso % (Auto) 0.1 % (0.2-1.0) L 06/02/21 05:32 Neut # (Auto) 12.7 x10^3/uL (2.2-4.8) H 06/02/21 05:32 Lymph # (Auto) 0.8 X10^3/uL (1.3-2.9) L 06/02/21 05:32 [place] # (Auto) 0.9 x10^3/uL (0.3-0.8) H 06/02/21 05:32 Eos # (Auto) 0.0 x10^3/uL (0.0-0.2) 06/02/21 05:32 Baso # (Auto) 0.0 X10^3/uL (0.0-0.1) 06/02/21 05:32 Absolute Nucleated RBC 0.0 /100WBC 06/02/21 05:32 Total Counted 100 06/02/21 05:32 Neutrophils % (Manual) 78 % (39-76) H 06/02/21 05:32 Band Neutrophils % 1 % (0-10) 06/02/21 05:32 Lymphocytes % (Manual) 10 % (13-43) L 06/02/21 05:32 Monocytes % (Manual) 6 % (4-9) 06/02/21 05:32 Metamyelocytes % 3 06/02/21 05:32 Myelocytes % 2 06/02/21 05:32 Plt Morphology Comment Normal (NORMAL) 06/02/21 05:32 RBC Morphology Normal (NORMAL) 06/02/21 05:32 D-Dimer 0.34 ug/ml (0.0-0.57) 05/31/21 10:18 Sample Site Lb 05/31/21 11:16 ABG pH 7.440 (7.35-7.45) 05/31/21 11:16 ABG pCO2 50.0 mmHg (35.0-45.0) H 05/31/21 11:16 ABG pO2 80.0 mmHg (80.0-100.0) 05/31/21 11:16 ABG HCO3 34.0 mmol/L (22-26) H* 05/31/21 11:16 ABG O2 Saturation 96.0 % (90-100) 05/31/21 11:16 ABG Base Excess 8.4 mmol/L (-2.0-2.0) H 05/31/21 11:16 Oswaldo Test Positive 05/31/21 11:16 A-a Gradient 57.0 mmHg 05/31/21 11:16 FiO2 28.0 05/31/21 11:16 Blood Gas Comments Pt chris well nrj 05/31/21 11:16 Sodium 140 mmol/L (136-145) 06/02/21 05:32 Corrected Sodium 141 mmol/L (136-145) 06/02/21 05:32 Potassium 4.7 mmol/L (3.5-5.1) 06/02/21 05:32 Chloride 104 mmol/L (98-107) 06/02/21 05:32 Carbon Dioxide 30.6 mmol/L (21-32) 06/02/21 05:32 BUN 41 mg/dL (7-18) H 06/02/21 05:32 Creatinine 1.15 mg/dL (0.55-1.02) H 06/02/21 05:32 Est GFR (MDRD) Af Amer 60 (>60) 06/02/21 05:32 Est GFR (MDRD) Non-Af 49 (>60) L 06/02/21 05:32 Glucose 151 mg/dL (65-99) H 06/02/21 05:32 Calcium 8.5 mg/dL (8.5-10.1) 06/02/21 05:32 Corrected Calcium 9.5 mg/dL (8.5-10.1) 06/02/21 05:32 Total Bilirubin 0.20 mg/dL (0.2-1.0) 06/02/21 05:32 AST 6 Units/L (15-37) L 06/02/21 05:32 ALT 13 Units/L (12-78) 06/02/21 05:32 Alkaline Phosphatase 62 Units/L (46-116) 06/02/21 05:32 Creatine Kinase 39 Units/L (26-192) 05/31/21 10:18 CK-MB (CK-2) 2.1 ng/mL (0-4.0) 05/31/21 10:18 CK/CKMB % Calc 5.4 % (<4) 05/31/21 10:18 Troponin I < 0.02 ng/mL (0-1.5) 05/31/21 10:18 C-Reactive Protein < 0.50 mg/L (0-3.0) 05/31/21 10:18 B-Natriuretic Peptide 84.6 pg/mL (0-79) H 05/29/21 15:06 Total Protein 5.6 g/dL (6.4-8.2) L 06/02/21 05:32 Albumin 2.7 g/dL (3.4-5.0) L 06/02/21 05:32 Globulin 2.9 g/dL (2.5-4.5) 06/02/21 05:32 Albumin/Globulin Ratio 0.9 Ratio (1.1-2.1) L 06/02/21 05:32 Lipase 114 Units/L (73-393) 05/29/21 15:06 Radiology Reviewed: Yes Plan (1) COVID-19: Status: Acute Narrative Support Text: Improved greatly. Plan: Plan on discharge home in am. (2) Hypoxia: Status: Acute Narrative Support Text: Improved overall. Plan: Nebs and IV Solumedrol. (3) Pleurisy: Status: Acute Plan: Resume patients Oxycodone. (4) HTN (hypertension): Status: Acute Plan: Resume home BP meds. (5) Dehydration: Status: Acute Plan: Continue IVF hydration.
[2021-06-02] MEDS: REMERON PO SCH (21:40)
[2021-06-03] MEDS: ROXICODONE TAB 5 MG PO SCH (05:47)
[2021-06-03] MEDS: SOLU-Medrol 40 MG VIAL IVP SCH (05:48)
[2021-06-03] MEDS: TESSALON PERLES PO PRN (05:48)
[2021-06-03] MEDS: PULMICORT NEB TX 0.5 MG NEB SCH (08:35)
[2021-06-03] MEDS: BROVANA IN SCH (08:35)
[2021-06-03] MEDS: CYMBALTA PO SCH (09:05)
[2021-06-03] MEDS: ZITHROMAX TAB 250 MG PO SCH (09:05)
[2021-06-03] MEDS: SYNTHROID 50 mcg TAB PO SCH (09:06)
[2021-06-03] MEDS: ZESTRIL TAB 10 MG PO SCH (09:06)
[2021-06-03] MEDS: ELIQUIS PO SCH (09:06)
[2021-06-03] MEDS: LASIX IVP SCH (09:06)
[2021-06-03] MEDS: PriLOSEC PO SCH (09:06)
[2021-06-03] MEDS: TOPROL XL PO SCH (09:07)
[2021-06-03 11:49] VITALS: BP 138/61
== END 2021-06-03 11:49 | disposition home or self-care (01) ==
LOC: ER 14:16 → ICU 16:08 → INTOOBSV 16:08 → ICU 16:35
PROVIDERS: ADMIT Family Medicine; ATTEND Family Medicine
DX: I50.9 Heart failure, unspecified; I10 Essential (primary) hypertension; R07.89 Other chest pain; J44.9 Chronic obstructive pulmonary disease, unspecified; E86.0 Dehydration; J12.81 Pneumonia due to SARS-associated coronavirus; R09.1 Pleurisy; R09.02 Hypoxemia; U07.1 COVID-19; R51.9 Headache, unspecified

== ENCOUNTER 2021-06-03 14:26 | Observation (INO) ==
[2021-06-03 14:56] LABS: BASOPHILS # (AUTO) 0.1 X10^3/uL (0.0-0.1); BASOPHILS % (AUTO) 0.3 % (0.2-1.0); HEMATOCRIT 35.1 % (36.0-47.0); LYMPHOCYTES # (AUTO) 0.7 X10^3/uL (1.3-2.9); LYMPHOCYTES % (AUTO) 3.2 % (21.0-51.0); MEAN CORPUSCULAR HEMOGLOBIN 31.4 pg (27.0-34.0); MEAN CORPUSCULAR HGB CONC 34.2 g/dL (33.0-35.0); MEAN CORPUSCULAR VOLUME 91.7 fL (80.0-100.0); MEAN PLATELET VOLUME 8.5 fL (7.4-11.0); MONOCYTES # (AUTO) 1.9 x10^3/uL (0.3-0.8); MONOCYTES % (AUTO) 9.4 % (0.0-13.0); NEUTROPHILS # (AUTO) 17.8 x10^3/uL (2.2-4.8); NEUTROPHILS % (AUTO) 87.1 % (42.0-75.0); PLATELET COUNT 350 X10^3/uL (150.0-450.0); RED BLOOD COUNT 3.83 X10^6/uL (3.5-5.4); RED CELL DISTRIBUTION WIDTH 14.7 % (11.6-16.5); WHITE BLOOD COUNT 20.4 X10^3/uL (3.6-10.0)
--- NOTE | 2021-06-03 15:00 | DR.SOBA ---
HPI Time Seen Time Seen by Provider: 06/03/21 14:33 Primary Care Physician Primary Care Physician: KIRA Complaints Chief Complaint Doctors Comments: 70 y/o female was d/c'd from the hospital today, after being admitted for Covid. Starting feeling worse on the way home. Feels like her abdomen and throat are swelling, having chest pressure and dyspnea. Has a slight cough, dry. Denies fever or chills. Abdomen feels swollen. No edema of legs. Did not take any new meds prior to d/c. Chief Complaint:: DISCHARGED TODAY FROM ICU FOR TREATMENT OF COVID,RESP DISTRESS. WASN'T HOME EVEN A HOUR AND SUDDENLY STARTED FEELING SOB,SWELLING IN ABDOMEN AND FEET,CHEST PAIN IN MIDDLE OF CHEST,GOT HARDER TO TALK DUE TO SOB. WAS NOT ON OXYGEN,WAS NOT PRESCRIBED OXYGEN ON DISCHARE. ONLY WEAR 2L NASAL CANNULA AT NIGHT AT HOME DUE TO COPD. COVID-19 Coronavirus risk:travel/contact w/high risk person: Yes Has patient experienced Coronavirus symptoms: Yes Coronavirus symptoms experienced: Shortness of Breath Reviewed Nurses Notes Reviewed: Yes Source History Provided: Patient and Family Member Mode of Arrival Mode of Arrival: Wheelchair Timing Onset of Chief Complaint: 06/03/21 PMH PMH Past Medical History: Yes Past Medical History: CHF, COPD, Depression and Hypothyroidism Past Medical History Comment: COVID 19 Past Surgical History: Yes Surgical History: Appendectomy, Cholecystectomy and Hysterectomy Family History History of Family Medical Conditions: Yes Family Medical History: Hypertension Social History Does any household member use tobacco: No Alcohol Use: None Do you use any recreational Drugs:: No Lives With: Spouse Lives Where: Home Travel Risk Coronavirus risk:travel/contact w/high risk person: Yes Has patient experienced Coronavirus symptoms: Yes Coronavirus symptoms experienced: Shortness of Breath Infectious screening In the last 2 months have you had wt loss of >10#?: NO Have you had fever, night sweats or hemotysis?: No Have you traveled outside the country in the last 6 months?: No Isolation: Droplet ROS Review of Systems Constitutional: Weakness Eyes: No Symptoms Reported ENTM: Throat Swelling Respiratoy: Non-Productive Cough and Short of Breath Cardiovascular: Chest Pain Gastrointestinal/Abdominal: Other (abdominal pressure) Genitourinary: No Symptoms Reported Neurological: No Symptoms Reported Musculoskeletal: No Symptoms Reported Integumentary: No Symptoms Reported Hematologic/Lymphatic: No Symptoms Reported Endocrine: No Symptoms Reported Psychiatric: No Symptoms Reported All Other Systems: Reviewed and Negative PE Vital Signs Vitals: Temperature 98.2 F Pulse Rate 98 Respiratory Rate 20 Blood Pressure [Left Arm] 138/61 Blood Pressure 178/72 O2 Sat by Pulse Oximetry 97 General Limitations: No Limitations General Appearance: Alert and In No Apparent Distress Head Head Exam: Normal Inspection Eyes Eye exam: Normal Appearance, PERRL and EOMI ENT ENT Exam: Mucous Membranes Moist and Other (throat with mild edema and erythema of uvula ) Neck Neck Exam: Normal Inspection and Full ROM Chest Chest Inspection: Normal Inspection Respiratory Respiratory Exam: Normal Lung Sounds Bilat; negative Accessory Muscle Use and Respiratory Distress Respiratory Exam: Bilateral: Clear to Auscultation Cardiovascular Cardiovascular Exam: Regular Rate, Normal Rhythm and Normal Heart Sounds Abdominal Exam Abdominal Exam: Normal Inspection, Normal Bowel Sounds, Soft and Tenderness (across upper abdomen, + increased tympany on percussion) Extremities Extremities Exam: Normal Inspection and Full ROM; negative Edema Back Back Exam: Normal Inspection Neurologic Neurological Exam: Alert, Oriented X3 and CN II-XII Intact; negative Motor Sensory Deficit Psychiatric Psychiatric Exam: Normal Affect Skin Skin Exam: Warm and Dry; negative Rash MDM Differential Diagnosis Differential Diagnosis: CHF, Mycardial Infarction, Pneumonia and Pulmonary embolism COURSE Treatment Treatment: 70 y/o female, d/c'd from hospital earlier today. started feeling swelling of abdomen, throat, with dyspnea. Had slight chest discomfort. Pt's pulse ox 95% at rest, drops to upper 80's with activity. W/u initiiated. Given IV steroid, benadryl for possible allergic reaction. Given small amount of IV lasix for possible fluid retention, CHF. CXR - without obvious pneumonia or acute abnormalities, has mild COPD changes. EKG with LBBB. Labs show elevated WBC, 20K, but has been on steroids. Troponin nml, has slight increased CK-MD %. Pt agreeable for observation admission to r/o worsening condition. Discussed with Dr Tesfaye, accepts the admission. ROR Labs Reviewed Laboratory Results Reviewed?: Yes Result Diagrams: 06/03/21 15:05 06/03/21 15:05 Laboratory: WBC 20.4 X10^3/uL (3.6-10.0) H 06/03/21 15:05 RBC 3.83 X10^6/uL (3.5-5.4) 06/03/21 15:05 Hgb 12.0 g/dL (12.0-16.0) 06/03/21 15:05 Hct 35.1 % (36.0-47.0) L 06/03/21 15:05 MCV 91.7 fL (80.0-100.0) 06/03/21 15:05 MCH 31.4 pg (27.0-34.0) 06/03/21 15:05 MCHC 34.2 g/dL (33.0-35.0) 06/03/21 15:05 RDW 14.7 % (11.6-16.5) 06/03/21 15:05 Plt Count 350 X10^3/uL (150.0-450.0) 06/03/21 15:05 Plt Count Comment Adequate (ADEQUATE) 06/03/21 15:05 MPV 8.5 fL (7.4-11.0) 06/03/21 15:05 Neut % (Auto) 87.1 % (42.0-75.0) H 06/03/21 15:05 Lymph % (Auto) 3.2 % (21.0-51.0) L 06/03/21 15:05 [place] % (Auto) 9.4 % (0.0-13.0) 06/03/21 15:05 Eos % (Auto) 0.0 % (0.9-2.9) L 06/03/21 15:05 Baso % (Auto) 0.3 % (0.2-1.0) 06/03/21 15:05 Neut # (Auto) 17.8 x10^3/uL (2.2-4.8) H 06/03/21 15:05 Lymph # (Auto) 0.7 X10^3/uL (1.3-2.9) L 06/03/21 15:05 [place] # (Auto) 1.9 x10^3/uL (0.3-0.8) H 06/03/21 15:05 Eos # (Auto) 0.0 x10^3/uL (0.0-0.2) 06/03/21 15:05 Baso # (Auto) 0.1 X10^3/uL (0.0-0.1) 06/03/21 15:05 Absolute Nucleated RBC 0.2 /100WBC 06/03/21 15:05 Total Counted 100 06/03/21 15:05 Neutrophils % (Manual) 76 % (39-76) 06/03/21 15:05 Band Neutrophils % 3 % (0-10) 06/03/21 15:05 Lymphocytes % (Manual) 10 % (13-43) L 06/03/21 15:05 Monocytes % (Manual) 11 % (4-9) H 06/03/21 15:05 Plt Morphology Comment Normal (NORMAL) 06/03/21 15:05 RBC Morphology Normal (NORMAL) 06/03/21 15:05 D-Dimer 0.56 ug/ml (0.0-0.57) 06/03/21 15:05 Sodium 137 mmol/L (136-145) 06/03/21 15:05 Corrected Sodium 138 mmol/L (136-145) 06/03/21 15:05 Potassium 4.7 mmol/L (3.5-5.1) 06/03/21 15:05 Chloride 100 mmol/L (98-107) 06/03/21 15:05 Carbon Dioxide 33.0 mmol/L (21-32) H 06/03/21 15:05 BUN 57 mg/dL (7-18) H 06/03/21 15:05 Creatinine 1.52 mg/dL (0.55-1.02) H 06/03/21 15:05 Est GFR (MDRD) Af Amer 43 (>60) L 06/03/21 15:05 Est GFR (MDRD) Non-Af 36 (>60) L 06/03/21 15:05 Glucose 154 mg/dL (65-99) H 06/03/21 15:05 Calcium 8.6 mg/dL (8.5-10.1) 06/03/21 15:05 Corrected Calcium 9.2 mg/dL (8.5-10.1) 06/03/21 15:05 Total Bilirubin 0.30 mg/dL (0.2-1.0) 06/03/21 15:05 AST 14 Units/L (15-37) L 06/03/21 15:05 ALT 26 Units/L (12-78) 06/03/21 15:05 Alkaline Phosphatase 73 Units/L (46-116) 06/03/21 15:05 Creatine Kinase 73 Units/L (26-192) 06/03/21 15:05 CK-MB (CK-2) 4.4 ng/mL (0-4.0) H* 06/03/21 15:05 CK/CKMB % Calc 6.0 % (<4) 06/03/21 15:05 Troponin I < 0.02 ng/mL (0-1.5) 06/03/21 15:05 Total Protein 6.5 g/dL (6.4-8.2) 06/03/21 15:05 Albumin 3.3 g/dL (3.4-5.0) L 06/03/21 15:05 Globulin 3.2 g/dL (2.5-4.5) 06/03/21 15:05 Albumin/Globulin Ratio 1.0 Ratio (1.1-2.1) L 06/03/21 15:05 Other Results Comments: see course discussion XRAY XRAY Interpreted by: Both X-ray Results: no acute abnormalities EKG Rate: 70 [place]: Normal Rhythm: NSR Block: LBBB ST: Nonsp Opioid Opioid Risk Tool Age (Jalen box if 16-45): No History of Preadolescent Sexual Abuse: No Total: 0 Total Score Risk Category: Low Risk Copyright: Lc CANO predicting aberrant behaviors Diagnosis Discharge Problem: Acute dyspnea, COVID-19 virus infection
--- NOTE | 2021-06-03 15:22 | RAD ---
CHEST, 1 VIEWHISTORY: SOB, HX COVIDStudy: AP view of the chest.Comparison:NoneFindings:The cardiomediastinal silhouette is normal. No focal consolidations, pleural effusions or pneumothorax. Osseous structures demonstrate no acute abnormality. Bilateral hyperexpansion and interstitial prominence.IMPRESSION:1. No acute cardiopulmonary process.2. Findings of COPD.Electronically signed by: GOOD HALL (Jun 03, 2021 15:19:57)
[2021-06-03] MEDS ORDERED: BENADRYL INJ 50 MG VIAL IVP ONE (15:34)
[2021-06-03] MEDS ORDERED: LASIX IVP ONE (15:34)
[2021-06-03] MEDS ORDERED: SOLU-Medrol 125 MG VIAL IVP ONE (15:34)
[2021-06-03 15:39] LABS: ALANINE AMINOTRANSFERASE 26 Units/L (12-78); ALBUMIN 3.3 g/dL (3.4-5.0); ALKALINE PHOSPHATASE 73 Units/L (46-116); ASPARTATE AMINO TRANSFERASE 14 Units/L (15-37); BLOOD UREA NITROGEN 57 mg/dL (7-18); CALCIUM 8.6 mg/dL (8.5-10.1); CHLORIDE 100 mmol/L (98-107); COR CA(FOR HYPOALB) 9.2 mg/dL (8.5-10.1); COR NA(FOR HYPERGLY) 138 mmol/L (136-145); CREATINE KINASE 73 Units/L (26-192); CREATININE 1.52 mg/dL (0.55-1.02); SODIUM 137 mmol/L (136-145); TOTAL PROTEIN 6.5 g/dL (6.4-8.2); TROPONIN I < 0.02 ng/mL (0-1.5); eGFR NON BLACK RACES 36 (>60)
[2021-06-03] MEDS ORDERED: BENADRYL INJ 50 MG VIAL ONE (15:39)
[2021-06-03] MEDS ORDERED: SOLU-Medrol 125 MG VIAL ONE (15:39)
[2021-06-03] MEDS ORDERED: LASIX ONE (15:39)
[2021-06-03 15:48] LABS: BAND NEUTROPHILS % 3 % (0-10); PLATELET MORPHOLOGY COMMENT NORMAL (NORMAL)
[2021-06-03 16:20] LABS: CREATINE KINASE MB 4.4 ng/mL (0-4.0)
[2021-06-03] MEDS ORDERED: CYMBALTA PO SCH (22:00)
[2021-06-03] MEDS ORDERED: MEDROL DOSEPAK 4 MG PER TAB PO NR (22:00)
[2021-06-03] MEDS: COLACE CAP 100 MG PO SCH (22:05)
[2021-06-03] MEDS: ELIQUIS PO SCH (22:05)
[2021-06-03] MEDS: ROXICODONE TAB 5 MG PO SCH (22:05)
[2021-06-04] VITALS: BMI 23.8
[2021-06-04] MEDS ORDERED: DOCUSATE SODIUM 100 MG PO PRN (00:09)
[2021-06-04] MEDS ORDERED: REMERON PO SCH ×2 (00:09→21:00)
[2021-06-04] MEDS ORDERED: ELIQUIS PO SCH (00:09)
[2021-06-04] MEDS ORDERED: REMERON PO ONE (01:00)
[2021-06-04] MEDS: LASIX PO SCH ×3 (01:10→21:30)
[2021-06-04 01:21] LABS: CKMB % 6.3 % (<4); CREATINE KINASE 60 Units/L (26-192); CREATINE KINASE MB 3.8 ng/mL (0-4.0); TROPONIN I < 0.02 ng/mL (0-1.5)
[2021-06-04] MEDS ORDERED: ZANAFLEX PO PRN (02:15)
[2021-06-04 05:15] LABS: BASOPHILS % (AUTO) 0.2 % (0.2-1.0); HEMATOCRIT 32.7 % (36.0-47.0); HEMOGLOBIN 11.1 g/dL (12.0-16.0); LYMPHOCYTES # (AUTO) 0.9 X10^3/uL (1.3-2.9); LYMPHOCYTES % (AUTO) 6.3 % (21.0-51.0); MEAN CORPUSCULAR VOLUME 91.1 fL (80.0-100.0); MEAN PLATELET VOLUME 8.1 fL (7.4-11.0); MONOCYTES # (AUTO) 1.2 x10^3/uL (0.3-0.8); MONOCYTES % (AUTO) 8.9 % (0.0-13.0); NEUTROPHILS # (AUTO) 11.8 x10^3/uL (2.2-4.8); NEUTROPHILS % (AUTO) 84.6 % (42.0-75.0); PLATELET COUNT 261 X10^3/uL (150.0-450.0); RED BLOOD COUNT 3.59 X10^6/uL (3.5-5.4); RED CELL DISTRIBUTION WIDTH 14.1 % (11.6-16.5); WHITE BLOOD COUNT 13.9 X10^3/uL (3.6-10.0)
[2021-06-04 05:41] LABS: ALANINE AMINOTRANSFERASE 25 Units/L (12-78); ALBUMIN 2.8 g/dL (3.4-5.0); ALKALINE PHOSPHATASE 58 Units/L (46-116); ASPARTATE AMINO TRANSFERASE 20 Units/L (15-37); BLOOD UREA NITROGEN 50 mg/dL (7-18); CALCIUM 8.4 mg/dL (8.5-10.1); CARBON DIOXIDE 31.6 mmol/L (21-32); CHLORIDE 102 mmol/L (98-107); COR CA(FOR HYPOALB) 9.4 mg/dL (8.5-10.1); COR NA(FOR HYPERGLY) 140 mmol/L (136-145); CREATINE KINASE 60 Units/L (26-192); CREATINE KINASE MB 3.6 ng/mL (0-4.0); CREATININE 1.24 mg/dL (0.55-1.02); SODIUM 139 mmol/L (136-145); TOTAL PROTEIN 5.8 g/dL (6.4-8.2); TROPONIN I < 0.02 ng/mL (0-1.5); eGFR NON BLACK RACES 45 (>60)
[2021-06-04 05:43] LABS: PLATELET MORPHOLOGY COMMENT NORMAL (NORMAL)
[2021-06-04] MEDS: ROXICODONE TAB 5 MG PO SCH ×3 (06:03→22:46)
--- NOTE | 2021-06-04 06:08 | RAD ---
HISTORYDYSPNEA, RECENT COVID INFECTIONSTUDYCHEST, 1 [id number].TECHNIQUEAP view of the chestFINDINGSCardiac and mediastinal contours are within normal limits. Lungs are stably hyperexpanded. No consolidation or segmental lung collapse. Chronic right-sided rib fractures noted. External wires are present. Reverse right total shoulder arthroplasty. No pleural effusion or pneumothorax. Thoracic vertebroplasties.IMPRESSIONHyperexpanded lungs consistent with COPD.Electronically signed by: Henry Tripp (Jun 04, 2021 06:06:06)
[2021-06-04] MEDS ORDERED: PULMICORT NEB TX 0.5 MG NEB ONE (07:54)
[2021-06-04] MEDS ORDERED: BROVANA ONE (07:54)
[2021-06-04] MEDS: BROVANA IN SCH ×2 (08:00→20:00)
[2021-06-04] MEDS: PULMICORT NEB TX 0.5 MG NEB SCH ×2 (08:00→20:00)
[2021-06-04] MEDS ORDERED: ZOLOFT ONE (08:05)
[2021-06-04] MEDS: COLACE CAP 100 MG PO SCH ×2 (08:40→21:30)
[2021-06-04] MEDS: TOPROL XL PO SCH (08:41)
[2021-06-04] MEDS: SYNTHROID 50 mcg TAB PO SCH (08:41)
[2021-06-04] MEDS: ZESTRIL TAB 10 MG PO SCH (08:41)
[2021-06-04] MEDS: ELIQUIS PO SCH ×2 (08:41→21:30)
[2021-06-04] MEDS: CYMBALTA PO SCH ×2 (08:42→21:30)
[2021-06-04] MEDS: ZOLOFT PO SCH (08:42)
[2021-06-04] MEDS: MEDROL DOSEPAK 4 MG PER TAB PO SCH ×2 (09:36→21:30)
[2021-06-04] MEDS ORDERED: MEDROL DOSEPAK 4 MG PER TAB PO SCH (12:00)
[2021-06-04] MEDS ORDERED: ZITHROMAX TAB 250 MG PO ONE (12:34)
[2021-06-04 13:30] LABS: CKMB % 5.2 % (<4); CREATINE KINASE 66 Units/L (26-192); CREATINE KINASE MB 3.4 ng/mL (0-4.0); TROPONIN I < 0.02 ng/mL (0-1.5)
[2021-06-04] MEDS: VALIUM PO SCH ×2 (13:47→21:30)
[2021-06-04] MEDS: K-DUR TAB 20 MEQ PO SCH (21:30)
[2021-06-04] MEDS ORDERED: MAALOX or MYLANTA PO PRN (22:21)
[2021-06-05 05:17] LABS: BASOPHILS % (AUTO) 0.4 % (0.2-1.0); EOSINOPHILS % (AUTO) 0.3 % (0.9-2.9); HEMATOCRIT 34.1 % (36.0-47.0); HEMOGLOBIN 11.6 g/dL (12.0-16.0); LYMPHOCYTES # (AUTO) 1.2 X10^3/uL (1.3-2.9); LYMPHOCYTES % (AUTO) 11.2 % (21.0-51.0); MEAN CORPUSCULAR HEMOGLOBIN 30.8 pg (27.0-34.0); MEAN CORPUSCULAR VOLUME 90.6 fL (80.0-100.0); MEAN PLATELET VOLUME 8.1 fL (7.4-11.0); MONOCYTES % (AUTO) 9.4 % (0.0-13.0); NEUTROPHILS # (AUTO) 8.8 x10^3/uL (2.2-4.8); NEUTROPHILS % (AUTO) 78.7 % (42.0-75.0); PLATELET COUNT 247 X10^3/uL (150.0-450.0); RED BLOOD COUNT 3.77 X10^6/uL (3.5-5.4); RED CELL DISTRIBUTION WIDTH 14.1 % (11.6-16.5); WHITE BLOOD COUNT 11.1 X10^3/uL (3.6-10.0)
[2021-06-05 05:32] LABS: CALCIUM 8.1 mg/dL (8.5-10.1); CARBON DIOXIDE 33.5 mmol/L (21-32); COR CA(FOR HYPOALB) 8.9 mg/dL (8.5-10.1); CREATININE 1.34 mg/dL (0.55-1.02); TOTAL PROTEIN 6.1 g/dL (6.4-8.2)
[2021-06-05] MEDS: ROXICODONE TAB 5 MG PO SCH (06:07)
[2021-06-05] MEDS: MEDROL DOSEPAK 4 MG PER TAB PO SCH ×2 (06:08→12:02)
[2021-06-05 06:10] LABS: METAMYELOCYTES % 8; PLATELET MORPHOLOGY COMMENT NORMAL (NORMAL)
--- NOTE | 2021-06-05 08:36 | DR.H&P ---
H&P History & Physical for Day of: H&P Date: 06/03/21 Chief Complaint Chief Complaint: Swelling all over on her way from home hospital discharge. Complains of swelling in her legs and abdomen. She reports she became anxious and felt like her throat was going to close up so she came back to hospital after being at home for less than half an hour. She also reported some chest pain and difficulty breathing. Troponin was neg in ED as well as a D-Dimer. She was subsequently admitted as a Hospital Observation patient to check serial cardiac enzymes and EKG's. Allergies Allergies Allergy/AdvReac Type Severity Reaction Status Date / Time codeine Allergy Verified 05/29/21 14:16 morphine Allergy Verified 05/29/21 14:16 Past Medical History Past Medical History: CHF, COPD, Depression and Hypothyroidism Additional Medical History: Resolving Covid infection. Past Surgical History Surgical History: Appendectomy, Cholecystectomy and Hysterectomy Family History Family Medical History: Hypertension Social History Does patient currently use any type of tobacco product: Yes Have you used tobacco products in the last 12 months: Yes Type of Tobacco Use: Cigarettes How many years tobacco product used: 50 Does any household member use tobacco: Yes Alcohol Use: None Drug Use: None Medications Home Medications: codeine Allergy (Verified 05/29/21 14:16) morphine Allergy (Verified 05/29/21 14:16) Labs Result Diagrams: 06/05/21 05:00 06/05/21 05:00 Labs: Laboratory WBC 11.1 X10^3/uL (3.6-10.0) H 06/05/21 05:00 RBC 3.77 X10^6/uL (3.5-5.4) 06/05/21 05:00 Hgb 11.6 g/dL (12.0-16.0) L 06/05/21 05:00 Hct 34.1 % (36.0-47.0) L 06/05/21 05:00 MCV 90.6 fL (80.0-100.0) 06/05/21 05:00 MCH 30.8 pg (27.0-34.0) 06/05/21 05:00 MCHC 34.0 g/dL (33.0-35.0) 06/05/21 05:00 RDW 14.1 % (11.6-16.5) 06/05/21 05:00 Plt Count 247 X10^3/uL (150.0-450.0) 06/05/21 05:00 Plt Count Comment Adequate (ADEQUATE) 06/05/21 05:00 MPV 8.1 fL (7.4-11.0) 06/05/21 05:00 Neut % (Auto) 78.7 % (42.0-75.0) H 06/05/21 05:00 Lymph % (Auto) 11.2 % (21.0-51.0) L 06/05/21 05:00 [place] % (Auto) 9.4 % (0.0-13.0) 06/05/21 05:00 Eos % (Auto) 0.3 % (0.9-2.9) L 06/05/21 05:00 Baso % (Auto) 0.4 % (0.2-1.0) 06/05/21 05:00 Neut # (Auto) 8.8 x10^3/uL (2.2-4.8) H 06/05/21 05:00 Lymph # (Auto) 1.2 X10^3/uL (1.3-2.9) L 06/05/21 05:00 [place] # (Auto) 1.0 x10^3/uL (0.3-0.8) H 06/05/21 05:00 Eos # (Auto) 0.0 x10^3/uL (0.0-0.2) 06/05/21 05:00 Baso # (Auto) 0.0 X10^3/uL (0.0-0.1) 06/05/21 05:00 Absolute Nucleated RBC 0.0 /100WBC 06/05/21 05:00 Total Counted 100 06/05/21 05:00 Neutrophils % (Manual) 78 % (39-76) H 06/05/21 05:00 Band Neutrophils % 3 % (0-10) 06/03/21 15:05 Lymphocytes % (Manual) 11 % (13-43) L 06/05/21 05:00 Monocytes % (Manual) 3 % (4-9) L 06/05/21 05:00 Metamyelocytes % 8 06/05/21 05:00 Plt Morphology Comment Normal (NORMAL) 06/05/21 05:00 RBC Morphology Normal (NORMAL) 06/05/21 05:00 D-Dimer 0.56 ug/ml (0.0-0.57) 06/03/21 15:05 Sodium 140 mmol/L (136-145) 06/05/21 05:00 Corrected Sodium 141 mmol/L (136-145) 06/05/21 05:00 Potassium 4.8 mmol/L (3.5-5.1) 06/05/21 05:00 Chloride 102 mmol/L (98-107) 06/05/21 05:00 Carbon Dioxide 33.5 mmol/L (21-32) H 06/05/21 05:00 BUN 51 mg/dL (7-18) H 06/05/21 05:00 Creatinine 1.34 mg/dL (0.55-1.02) H 06/05/21 05:00 Est GFR (MDRD) Af Amer 50 (>60) L 06/05/21 05:00 Est GFR (MDRD) Non-Af 41 (>60) L 06/05/21 05:00 Glucose 129 mg/dL (65-99) H 06/05/21 05:00 Calcium 8.1 mg/dL (8.5-10.1) L 06/05/21 05:00 Corrected Calcium 8.9 mg/dL (8.5-10.1) 06/05/21 05:00 Total Bilirubin 0.40 mg/dL (0.2-1.0) 06/05/21 05:00 AST 24 Units/L (15-37) 06/05/21 05:00 ALT 30 Units/L (12-78) 06/05/21 05:00 Alkaline Phosphatase 64 Units/L (46-116) 06/05/21 05:00 Creatine Kinase 66 Units/L (26-192) 06/04/21 12:53 CK-MB (CK-2) 3.4 ng/mL (0-4.0) 06/04/21 12:53 CK/CKMB % Calc 5.2 % (<4) 06/04/21 12:53 Troponin I < 0.02 ng/mL (0-1.5) 06/04/21 12:53 Total Protein 6.1 g/dL (6.4-8.2) L 06/05/21 05:00 Albumin 3.0 g/dL (3.4-5.0) L 06/05/21 05:00 Globulin 3.1 g/dL (2.5-4.5) 06/05/21 05:00 Albumin/Globulin Ratio 1.0 Ratio (1.1-2.1) L 06/05/21 05:00 Review of Systems Constitutional: Sweats Eyes: No Symptoms Reported ENT: No Symptoms Reported Respiratory: Shortness of Breath Cardiovascular: Chest Pain Gastrointestinal: No Symptoms Reported Genitourinary: Retention Musculoskeletal: Other (leg weakness) Skin: No Symptoms Reported Neurological: Weakness Physical Exam Vital Signs: Temperature 97.8 F Pulse Rate [Apical] 58 Pulse Rate 60 Respiratory Rate 18 Blood Pressure [Left Arm] 153/70 Blood Pressure 134/63 O2 Sat by Pulse Oximetry 99 Oriented: Normal Eyes: Normal Ear: Normal Nose: Normal Throat: Normal Respiratory: Clear Throughout Cardiovascular: Normal : Normal Auscultation: Bowel Sounds: Normal Palpation: Normal Tenderness: Normal Skin: Normal Musculoskeletal: Normal Psychiatric: Anxiety Mood Description: Calm Affect: Normal Speech Pattern: Clear Assessment/Plan (1) Acute dyspnea: Status: Acute Plan: Supplemental O2 (2) Chest pain: Status: Acute Plan: R/O [place] with serial cardiac enzymes and EKG's. (3) SOB (shortness of breath): Status: Acute Plan: Monitor. Suspect anxiety may be a component to her SOB. (4) Allergic reaction: Status: Acute Plan: Solumedrol and Benadryl given in ER. Review H&P Reviewed: Yes Patient was examined?: Yes
--- NOTE | 2021-06-05 08:45 | PCM.PROG ---
Progress Note Progress Note for Day of Date of Exam: 06/04/21 Subjective Subjective: Patient feels better this am. No SOB at this time. No further chest pain. No swelling or edema is seen. Past Medical Family Social History Past Med/Fam/Surg Hx: No changes since H&P Allergies: Allergies codeine Allergy (Verified 05/29/21 14:16) morphine Allergy (Verified 05/29/21 14:16) Review of Systems ROS: No change since H&P Vital Signs and I&O's Vital Signs: Temperature 97.8 F Pulse Rate [Apical] 58 Pulse Rate 60 Respiratory Rate 18 Blood Pressure [Left Arm] 153/70 Blood Pressure 134/63 O2 Sat by Pulse Oximetry 99 Intake and Output: Intake & Output 06/02/21 06/03/21 06/04/21 06/05/21 11:59 11:59 11:59 11:59 Intake Total 310 / 310 1424 / 1424 Output Total 1500 / 1500 4401 / 4401 Balance -1190 / -1190 -2977 / -2977 Physical Exam Oriented: Normal Eyes: Normal Ear: Normal Nose: Normal Throat: Normal Cardiovascular: Normal : Normal Auscultation: Bowel Sounds: Normal Tenderness: Normal Skin: Normal Musculoskeletal: Normal Psychiatric: Anxiety Mood Description: Calm Affect: Normal Speech Pattern: Clear Laboratory and Diagnostics Result Diagrams: 06/05/21 05:00 06/05/21 05:00 Labs: Laboratory WBC 11.1 X10^3/uL (3.6-10.0) H 06/05/21 05:00 RBC 3.77 X10^6/uL (3.5-5.4) 06/05/21 05:00 Hgb 11.6 g/dL (12.0-16.0) L 06/05/21 05:00 Hct 34.1 % (36.0-47.0) L 06/05/21 05:00 MCV 90.6 fL (80.0-100.0) 06/05/21 05:00 MCH 30.8 pg (27.0-34.0) 06/05/21 05:00 MCHC 34.0 g/dL (33.0-35.0) 06/05/21 05:00 RDW 14.1 % (11.6-16.5) 06/05/21 05:00 Plt Count 247 X10^3/uL (150.0-450.0) 06/05/21 05:00 Plt Count Comment Adequate (ADEQUATE) 06/05/21 05:00 MPV 8.1 fL (7.4-11.0) 06/05/21 05:00 Neut % (Auto) 78.7 % (42.0-75.0) H 06/05/21 05:00 Lymph % (Auto) 11.2 % (21.0-51.0) L 06/05/21 05:00 [place] % (Auto) 9.4 % (0.0-13.0) 06/05/21 05:00 Eos % (Auto) 0.3 % (0.9-2.9) L 06/05/21 05:00 Baso % (Auto) 0.4 % (0.2-1.0) 06/05/21 05:00 Neut # (Auto) 8.8 x10^3/uL (2.2-4.8) H 06/05/21 05:00 Lymph # (Auto) 1.2 X10^3/uL (1.3-2.9) L 06/05/21 05:00 [place] # (Auto) 1.0 x10^3/uL (0.3-0.8) H 06/05/21 05:00 Eos # (Auto) 0.0 x10^3/uL (0.0-0.2) 06/05/21 05:00 Baso # (Auto) 0.0 X10^3/uL (0.0-0.1) 06/05/21 05:00 Absolute Nucleated RBC 0.0 /100WBC 06/05/21 05:00 Total Counted 100 06/05/21 05:00 Neutrophils % (Manual) 78 % (39-76) H 06/05/21 05:00 Band Neutrophils % 3 % (0-10) 06/03/21 15:05 Lymphocytes % (Manual) 11 % (13-43) L 06/05/21 05:00 Monocytes % (Manual) 3 % (4-9) L 06/05/21 05:00 Metamyelocytes % 8 06/05/21 05:00 Plt Morphology Comment Normal (NORMAL) 06/05/21 05:00 RBC Morphology Normal (NORMAL) 06/05/21 05:00 D-Dimer 0.56 ug/ml (0.0-0.57) 06/03/21 15:05 Sodium 140 mmol/L (136-145) 06/05/21 05:00 Corrected Sodium 141 mmol/L (136-145) 06/05/21 05:00 Potassium 4.8 mmol/L (3.5-5.1) 06/05/21 05:00 Chloride 102 mmol/L (98-107) 06/05/21 05:00 Carbon Dioxide 33.5 mmol/L (21-32) H 06/05/21 05:00 BUN 51 mg/dL (7-18) H 06/05/21 05:00 Creatinine 1.34 mg/dL (0.55-1.02) H 06/05/21 05:00 Est GFR (MDRD) Af Amer 50 (>60) L 06/05/21 05:00 Est GFR (MDRD) Non-Af 41 (>60) L 06/05/21 05:00 Glucose 129 mg/dL (65-99) H 06/05/21 05:00 Calcium 8.1 mg/dL (8.5-10.1) L 06/05/21 05:00 Corrected Calcium 8.9 mg/dL (8.5-10.1) 06/05/21 05:00 Total Bilirubin 0.40 mg/dL (0.2-1.0) 06/05/21 05:00 AST 24 Units/L (15-37) 06/05/21 05:00 ALT 30 Units/L (12-78) 06/05/21 05:00 Alkaline Phosphatase 64 Units/L (46-116) 06/05/21 05:00 Creatine Kinase 66 Units/L (26-192) 06/04/21 12:53 CK-MB (CK-2) 3.4 ng/mL (0-4.0) 06/04/21 12:53 CK/CKMB % Calc 5.2 % (<4) 06/04/21 12:53 Troponin I < 0.02 ng/mL (0-1.5) 06/04/21 12:53 Total Protein 6.1 g/dL (6.4-8.2) L 06/05/21 05:00 Albumin 3.0 g/dL (3.4-5.0) L 06/05/21 05:00 Globulin 3.1 g/dL (2.5-4.5) 06/05/21 05:00 Albumin/Globulin Ratio 1.0 Ratio (1.1-2.1) L 06/05/21 05:00 Radiology Reviewed: Yes EKG Reviewed: Yes Plan (1) Acute dyspnea: Status: Resolved Plan: Supplemental O2 (2) Chest pain: Status: Acute Plan: Serial cardiac enzymes and EKG's WNL so far. Monitor until tomorrow and discharge home in am if patient is still doing good. (3) SOB (shortness of breath): Status: Resolved Plan: Monitor. Suspect anxiety may be a component to her SOB. (4) Allergic reaction: Status: Resolved Plan: Solumedrol and Benadryl given in ER. (5) Anxiety: Status: Acute Plan: Trial of Valium 2.5mg today.
--- NOTE | 2021-06-05 08:54 | PCM.DCPLAN ---
DISCHARGE SUMMARY Admission Date Date of Admission: 06/03/21 Discharge Date Discharge Date: 06/05/21 Admission Diagnoses (1) Acute dyspnea: Status: Resolved (2) Chest pain: Status: Acute (3) SOB (shortness of breath): Status: Resolved (4) Allergic reaction: Status: Resolved (5) Anxiety: Status: Acute Discharge Diagnoses Discharge Diagnosis: 1. Chest pain resolved. 2. Dyspnea resolved. 3. Possible allergic reaction resolved. 4. Anxiety stable. Discharge Medications Discharge Medications: Prescriptions: Hospital Course Vital Signs: Temperature 97.8 F Pulse Rate [Apical] 58 Pulse Rate 60 Respiratory Rate 18 Blood Pressure [Left Arm] 153/70 Blood Pressure 134/63 O2 Sat by Pulse Oximetry 99 Latest Lab Results: Laboratory Last Values WBC 11.1 X10^3/uL (3.6-10.0) H 06/05/21 05:00 RBC 3.77 X10^6/uL (3.5-5.4) 06/05/21 05:00 Hgb 11.6 g/dL (12.0-16.0) L 06/05/21 05:00 Hct 34.1 % (36.0-47.0) L 06/05/21 05:00 MCV 90.6 fL (80.0-100.0) 06/05/21 05:00 MCH 30.8 pg (27.0-34.0) 06/05/21 05:00 MCHC 34.0 g/dL (33.0-35.0) 06/05/21 05:00 RDW 14.1 % (11.6-16.5) 06/05/21 05:00 Plt Count 247 X10^3/uL (150.0-450.0) 06/05/21 05:00 Plt Count Comment Adequate (ADEQUATE) 06/05/21 05:00 MPV 8.1 fL (7.4-11.0) 06/05/21 05:00 Neut % (Auto) 78.7 % (42.0-75.0) H 06/05/21 05:00 Lymph % (Auto) 11.2 % (21.0-51.0) L 06/05/21 05:00 [place] % (Auto) 9.4 % (0.0-13.0) 06/05/21 05:00 Eos % (Auto) 0.3 % (0.9-2.9) L 06/05/21 05:00 Baso % (Auto) 0.4 % (0.2-1.0) 06/05/21 05:00 Neut # (Auto) 8.8 x10^3/uL (2.2-4.8) H 06/05/21 05:00 Lymph # (Auto) 1.2 X10^3/uL (1.3-2.9) L 06/05/21 05:00 [place] # (Auto) 1.0 x10^3/uL (0.3-0.8) H 06/05/21 05:00 Eos # (Auto) 0.0 x10^3/uL (0.0-0.2) 06/05/21 05:00 Baso # (Auto) 0.0 X10^3/uL (0.0-0.1) 06/05/21 05:00 Absolute Nucleated RBC 0.0 /100WBC 06/05/21 05:00 Total Counted 100 06/05/21 05:00 Neutrophils % (Manual) 78 % (39-76) H 06/05/21 05:00 Band Neutrophils % 3 % (0-10) 06/03/21 15:05 Lymphocytes % (Manual) 11 % (13-43) L 06/05/21 05:00 Monocytes % (Manual) 3 % (4-9) L 06/05/21 05:00 Metamyelocytes % 8 06/05/21 05:00 Plt Morphology Comment Normal (NORMAL) 06/05/21 05:00 RBC Morphology Normal (NORMAL) 06/05/21 05:00 D-Dimer 0.56 ug/ml (0.0-0.57) 06/03/21 15:05 Sodium 140 mmol/L (136-145) 06/05/21 05:00 Corrected Sodium 141 mmol/L (136-145) 06/05/21 05:00 Potassium 4.8 mmol/L (3.5-5.1) 06/05/21 05:00 Chloride 102 mmol/L (98-107) 06/05/21 05:00 Carbon Dioxide 33.5 mmol/L (21-32) H 06/05/21 05:00 BUN 51 mg/dL (7-18) H 06/05/21 05:00 Creatinine 1.34 mg/dL (0.55-1.02) H 06/05/21 05:00 Est GFR (MDRD) Af Amer 50 (>60) L 06/05/21 05:00 Est GFR (MDRD) Non-Af 41 (>60) L 06/05/21 05:00 Glucose 129 mg/dL (65-99) H 06/05/21 05:00 Calcium 8.1 mg/dL (8.5-10.1) L 06/05/21 05:00 Corrected Calcium 8.9 mg/dL (8.5-10.1) 06/05/21 05:00 Total Bilirubin 0.40 mg/dL (0.2-1.0) 06/05/21 05:00 AST 24 Units/L (15-37) 06/05/21 05:00 ALT 30 Units/L (12-78) 06/05/21 05:00 Alkaline Phosphatase 64 Units/L (46-116) 06/05/21 05:00 Creatine Kinase 66 Units/L (26-192) 06/04/21 12:53 CK-MB (CK-2) 3.4 ng/mL (0-4.0) 06/04/21 12:53 CK/CKMB % Calc 5.2 % (<4) 06/04/21 12:53 Troponin I < 0.02 ng/mL (0-1.5) 06/04/21 12:53 Total Protein 6.1 g/dL (6.4-8.2) L 06/05/21 05:00 Albumin 3.0 g/dL (3.4-5.0) L 06/05/21 05:00 Globulin 3.1 g/dL (2.5-4.5) 06/05/21 05:00 Albumin/Globulin Ratio 1.0 Ratio (1.1-2.1) L 06/05/21 05:00 Hospital Course: The patient had no significant problems suring her stay. She did have some anxiety which resolved with her po Valium. The Troponins were negative x 4. She will be discharged home in stable condition today.
[2021-06-05] MEDS ORDERED: ZITHROMAX TAB 250 MG PO SCH (09:00)
[2021-06-05] MEDS: BROVANA IN SCH (09:35)
[2021-06-05] MEDS: PULMICORT NEB TX 0.5 MG NEB SCH (09:35)
[2021-06-05] MEDS ORDERED: ZOLOFT ONE ×2 (09:46→11:09)
[2021-06-05] MEDS: ZOLOFT PO SCH (09:58)
[2021-06-05] MEDS: CYMBALTA PO SCH (10:30)
[2021-06-05] MEDS: COLACE CAP 100 MG PO SCH (10:30)
[2021-06-05] MEDS: LASIX PO SCH (10:31)
[2021-06-05] MEDS: K-DUR TAB 20 MEQ PO SCH (10:31)
[2021-06-05] MEDS: ELIQUIS PO SCH (10:31)
[2021-06-05] MEDS: SYNTHROID 50 mcg TAB PO SCH (10:31)
[2021-06-05] MEDS: TOPROL XL PO SCH (10:32)
[2021-06-05] MEDS: ZESTRIL TAB 10 MG PO SCH (10:32)
[2021-06-05] MEDS: VALIUM PO SCH (11:32)
[2021-06-05 12:05] VITALS: BP 119/65
[2021-06-05] MEDS ORDERED: MEDROL DOSEPAK 4 MG PER TAB PO SCH (21:00)
[2021-06-06] MEDS ORDERED: MEDROL DOSEPAK 4 MG PER TAB PO SCH (07:00)
[2021-06-07] MEDS ORDERED: MEDROL DOSEPAK 4 MG PER TAB PO SCH (07:00)
[2021-06-08] MEDS ORDERED: MEDROL DOSEPAK 4 MG PER TAB PO SCH (07:00)
[2021-06-09] MEDS ORDERED: MEDROL DOSEPAK 4 MG PER TAB PO SCH (06:00)
== END 2021-06-05 13:00 | disposition home or self-care (01) ==
LOC: ICU 14:26 → ER 14:26 → ICU 19:36
PROVIDERS: ADMIT Family Medicine; ATTEND Family Medicine
DX: E03.8 Other specified hypothyroidism; R06.02 Shortness of breath; R60.0 Localized edema; T78.40XA Allergy, unspecified, initial encounter; R94.31 Abnormal electrocardiogram [ECG] [EKG]; R74.8 Abnormal levels of other serum enzymes; J44.9 Chronic obstructive pulmonary disease, unspecified; F41.8 Other specified anxiety disorders; R07.89 Other chest pain

== ENCOUNTER 2022-01-05 18:30 | Observation (INO) ==
--- NOTE | 2022-01-05 18:54 | DR.GENAD ---
HPI Time Seen Time Seen by Provider: 01/05/22 18:48 PCP Primary Care Physician: eneida HPI Comment HPI Comment: PATIENT IS 71YR OLD MALE IN ER PER ADVICE OF HOME HEALTH NURSE. HIS BP, PULSE AND O2 SAT WAS LOW. HE CONTINUE TO HAVE LOWER BACK PAIN. TAKE MEDICATION FOR HIS BACK AND STILL HAVE PAIN. DENIES TRAUMA OR FEVER. Complaint/Symptoms Chief Complaint Doctors Comments: HOME HEALTH NURSE NOTED LOW BP, SLOW HEART RATE AND LOW O2 SAT AND ADVICED PATIENT TO GO TO ER FOR EVALUATION. Chief Complaint:: PT STATES" THE VISITING NURSES TOLD ME TO COME BECAUSE MY BLOOD PRESSURE AND MY PULSE WAS LOW. THEY SAID MY SATURATION WAS 85% IM ALSO HURTING IN MY UPPER ABD AND MY BACK" COVID-19 Coronavirus risk:travel/contact w/high risk person: No Has patient experienced Coronavirus symptoms: No Nurses notes reviewed Nurses Notes Review: Yes Source History Provided: Patient Mode of Arrival Mode of Arrival: Ambulatory Timing Onset of Chief Complaint: 01/04/22 Came on: Suddenly Duration Duration: Constant PMH PMH Past Medical History: Yes Past Medical History: CHF, COPD, Depression, Hypertension and Hypothyroidism Past Surgical History: Yes Surgical History: Appendectomy, Cholecystectomy, Hysterectomy, Joint Replacement and Ortho Surgery Family History History of Family Medical Conditions: Yes Family Medical History: Hypertension Social History Does patient currently use any type of tobacco product: Yes Have you used tobacco products in the last 12 months: Yes Type of Tobacco Use: Cigarettes Does any household member use tobacco: Yes Alcohol Use: None Do you use any recreational Drugs:: No Lives With: Family Lives Where: Home Infectious screening In the last 2 months have you had wt loss of >10#?: NO Have you had fever, night sweats or hemotysis?: No Have you traveled outside the country in the last 6 months?: No Isolation: Standard ROS Review of Systems Constitutional: See HPI, Weakness and Fatigue; negative Fever Eyes: No Symptoms Reported and See HPI ENTM: No Symptoms Reported and See HPI; negative Nose Discharge or Nose Congestion Respiratoy: See HPI and Short of Breath; negative Moist Cough or Wheezing Cardiovascular: See HPI, Chest Pain and Other (BRADYCARDIA.) Gastrointestinal/Abdominal: See HPI and Abdominal Pain; negative Diarrhea or Vomiting Genitourinary: No Symptoms Reported and See HPI; negative Dysuria Neurological: See HPI and Weakness; negative Headache Musculoskeletal: See HPI and Back Pain; negative Muscle Pain Integumentary: No Symptoms Reported and See HPI; negative Rash or Juandice Hematologic/Lymphatic: See HPI, Easy Bleeding and Easy Bruising Endocrine: No Symptoms Reported and See HPI Psychiatric: No Symptoms Reported and See HPI All Other Systems: Reviewed and Negative PE Vital Signs Vitals: Temperature 97.8 F Pulse Rate [Left Brachial] 59 Pulse Rate 56 Respiratory Rate 22 Blood Pressure [Left Arm] 138/67 Blood Pressure 152/66 O2 Sat by Pulse Oximetry 93 General Limitations: No Limitations General Appearance: Alert; negative In No Apparent Distress Head Head Exam: Normal Inspection and Atraumatic ENT ENT Exam: Normal Exam, Normal Oropharynx, Normal External Ear Exam and TM's Normal Bilaterally External Ear Exam: negative Normal External Inspection or Mastoid Tenderness Nose Exam: Normal Nose Exam Mouth Exam: Normal Inspection; negative Lip Swelling or Tongue Swelling Throat Exam: Normal Inspection; negative Tonsillar Erythema, Tonsillomegaly or Tonsillar Exudate Neck Neck Exam: Normal Inspection and Trachea Midline; negative Tenderness Chest Chest Inspection: Normal Inspection and Symmetric Chest Wall Rise; negative Tenderness Respiratory Respiratory Exam: Normal Lung Sounds Bilat; negative Accessory Muscle Use, Chest Wall Tenderness or Respiratory Distress Respiratory Exam: Bilateral: Rhonchi and Lower: Rhonchi Cardiovascular Cardiovascular Exam: Regular Rate, Normal Rhythm and Normal Heart Sounds; negative Systolic Murmur or Diastolic Murmur Abdominal Exam Abdominal Exam: Normal Bowel Sounds, Soft and Tenderness Abdominal Tenderness: Diffuse and Moderate Extremities Extremities Exam: Normal Inspection and Normal Capillary Refill Back Back Exam: Normal Inspection and Paraspinal Tenderness; negative (R) CVA Tenderness or (L) CVA Tenderness MDM Additional Information Additional Information Obtained From: Family ROR Labs Reviewed Laboratory Results Reviewed?: Yes Result Diagrams: 01/14/22 03:47 01/14/22 03:47 Laboratory: WBC 7.1 X10^3/uL (3.6-10.0) 01/05/22 19:35 RBC 3.13 X10^6/uL (3.5-5.4) L 01/05/22 19:35 Hgb 9.7 g/dL (12.0-16.0) L 01/05/22 19:35 Hct 27.5 % (36.0-47.0) L 01/05/22 19:35 MCV 87.9 fL (80.0-100.0) 01/05/22 19:35 MCH 30.8 pg (27.0-34.0) 01/05/22 19:35 MCHC 35.1 g/dL (33.0-35.0) H 01/05/22 19:35 RDW 15.0 % (11.6-16.5) 01/05/22 19:35 Plt Count 368 X10^3/uL (150.0-450.0) 01/05/22 19:35 MPV 7.2 fL (7.4-11.0) L 01/05/22 19:35 Neut % (Auto) 61.2 % (42.0-75.0) 01/05/22 19:35 Lymph % (Auto) 21.8 % (21.0-51.0) 01/05/22 19:35 [place] % (Auto) 13.4 % (0.0-13.0) H 01/05/22 19:35 Eos % (Auto) 3.0 % (0.9-2.9) H 01/05/22 19:35 Baso % (Auto) 0.6 % (0.2-1.0) 01/05/22 19:35 Neut # (Auto) 4.4 x10^3/uL (2.2-4.8) 01/05/22 19:35 Lymph # (Auto) 1.6 X10^3/uL (1.3-2.9) 01/05/22 19:35 [place] # (Auto) 1.0 x10^3/uL (0.3-0.8) H 01/05/22 19:35 Eos # (Auto) 0.2 x10^3/uL (0.0-0.2) 01/05/22 19:35 Baso # (Auto) 0.0 X10^3/uL (0.0-0.1) 01/05/22 19:35 Absolute Nucleated RBC 0.1 /100WBC 01/05/22 19:35 PT 14.9 SECONDS (11.8-14.3) 01/05/22 19:35 INR Target Range - 01/05/22 19:35 INR 1.21 (0.8-1.3) 01/05/22 19:35 APTT 33.8 SECONDS (22.9-36.5) 01/05/22 19:35 PTT Comment - 01/05/22 19:35 Sodium 134 mmol/L (136-145) L 01/05/22 19:35 Corrected Sodium TNP 01/05/22 19:35 Potassium 3.4 mmol/L (3.5-5.1) L 01/05/22 19:35 Chloride 95 mmol/L (98-107) L 01/05/22 19:35 Carbon Dioxide 31.4 mmol/L (21-32) 01/05/22 19:35 BUN 15 mg/dL (7-18) 01/05/22 19:35 Creatinine 1.58 mg/dL (0.55-1.02) H 01/05/22 19:35 Est GFR (MDRD) Af Amer 41 (>60) L 01/05/22 19:35 Est GFR (MDRD) Non-Af 34 (>60) L 01/05/22 19:35 Glucose 89 mg/dL (65-99) 01/05/22 19:35 Calcium 8.0 mg/dL (8.5-10.1) L 01/05/22 19:35 Corrected Calcium TNP 01/05/22 19:35 Total Bilirubin 0.30 mg/dL (0.2-1.0) 01/05/22 19:35 AST 28 Units/L (15-37) 01/05/22 19:35 ALT 19 Units/L (12-78) 01/05/22 19:35 Alkaline Phosphatase 126 Units/L (46-116) H 01/05/22 19:35 Creatine Kinase 160 Units/L (26-192) 01/05/22 21:34 CK-MB (CK-2) 4.1 ng/mL (0-4.0) H 01/05/22 21:34 CK/CKMB % Calc 2.6 % (<4) 01/05/22 21:34 Troponin I High Sens 59.4 ng/L (4.0-60.0) 01/05/22 21:34 Total Protein 6.8 g/dL (6.4-8.2) 01/05/22 19:35 Albumin 3.4 g/dL (3.4-5.0) 01/05/22 19:35 Globulin 3.4 g/dL (2.5-4.5) 01/05/22 19:35 Albumin/Globulin Ratio 1.0 Ratio (1.1-2.1) L 01/05/22 19:35 Specimen Type Clean catch urine 01/05/22 19:19 Urine Color Yellow (YELLOW) 01/05/22 19:19 Urine Appearance Clear (CLEAR) 01/05/22 19:19 Urine pH 5.0 (5.0 - 8.0) 01/05/22 19:19 Ur Specific [place] 1.015 (1.000-1.030) 01/05/22 19:19 Urine Protein Negative (NEGATIVE) 01/05/22 19:19 Urine Glucose (UA) Negative (NEGATIVE) 01/05/22 19:19 Urine Ketones Negative (NEGATIVE) 01/05/22 19:19 Urine Blood 2+ (NEGATIVE) 01/05/22 19:19 Urine Nitrite Negative (NEGATIVE) 01/05/22 19:19 Urine Bilirubin Negative (NEGATIVE) 01/05/22 19:19 Urine Urobilinogen Normal (NORMAL) 01/05/22 19:19 Ur Leukocyte Esterase Negative (NEGATIVE) 01/05/22 19:19 Urine RBC 3-5 /HPF (0-3) A 01/05/22 19:19 Urine WBC 3-5 /HPF (0-5) 01/05/22 19:19 Ur Squamous Epith Cells Few /HPF (NEGATIVE) 01/05/22 19:19 Urine Bacteria Negative /HPF (NEGATIVE) 01/05/22 19:19 Hyaline Casts Few /LPF (NEGATIVE) 01/05/22 19:19 Ur Culture Indicated? No/not indicated 01/05/22 19:19 SARS-CoV-2 (PCR) Negative (NEGATIVE) 01/05/22 22:53 XRAY XRAY Interpreted by: Radiologist (REPORT NOTED.) and Self EKG Rate: 65 [place]: LAD Rhythm: NSR Block: LBBB Hypertrophy: None ST: Nonsp Opioid Opioid Risk Tool Age (Jalen box if 16-45): No History of Preadolescent Sexual Abuse: No Total: 0 Total Score Risk Category: Low Risk Copyright: [facility] predicting aberrant behaviors Diagnosis Discharge Problem: Elevated troponin, Elevated troponin I level, Chest pain, Abdominal pain, Back pain, Anemia
[2022-01-05 19:42] LABS: BILIRUBIN,URINE NEGATIVE (NEGATIVE); BLOOD/HEMOGLOBIN,URINE 2+ (NEGATIVE); GLUCOSE, URINE NEGATIVE (NEGATIVE); KETONES,URINE NEGATIVE (NEGATIVE); LEUKOCYTE ESTERASE ,URINE NEGATIVE (NEGATIVE); NITRITES,URINE NEGATIVE (NEGATIVE); PROTEIN,URINE NEGATIVE (NEGATIVE); UROBILINOGEN,URINE NORMAL (NORMAL)
[2022-01-05 19:59] LABS: APPEARANCE,URINE CLEAR (CLEAR); COLOR,URINE YELLOW (YELLOW)
[2022-01-05 20:00] LABS: BASOPHILS % (AUTO) 0.6 % (0.2-1.0); EOSINOPHILS # (AUTO) 0.2 x10^3/uL (0.0-0.2); HEMATOCRIT 27.5 % (36.0-47.0); HEMOGLOBIN 9.7 g/dL (12.0-16.0); LYMPHOCYTES # (AUTO) 1.6 X10^3/uL (1.3-2.9); LYMPHOCYTES % (AUTO) 21.8 % (21.0-51.0); MEAN CORPUSCULAR HEMOGLOBIN 30.8 pg (27.0-34.0); MEAN CORPUSCULAR HGB CONC 35.1 g/dL (33.0-35.0); MEAN CORPUSCULAR VOLUME 87.9 fL (80.0-100.0); MEAN PLATELET VOLUME 7.2 fL (7.4-11.0); MONOCYTES % (AUTO) 13.4 % (0.0-13.0); NEUTROPHILS # (AUTO) 4.4 x10^3/uL (2.2-4.8); NEUTROPHILS % (AUTO) 61.2 % (42.0-75.0); RED BLOOD COUNT 3.13 X10^6/uL (3.5-5.4); WHITE BLOOD COUNT 7.1 X10^3/uL (3.6-10.0)
[2022-01-05 20:01] LABS: BACTERIA,URINE NEGATIVE /HPF (NEGATIVE); SQUAMOUS EPITHELIAL CELL,UR FEW /HPF (NEGATIVE)
[2022-01-05 20:03] LABS: HYALINE CASTS, URINE FEW /LPF (NEGATIVE)
--- NOTE | 2022-01-05 20:29 | RAD ---
HISTORYSTATES" VISITING NURSES TOLD ME TO COME BECAUSE MY BLOOD PRESSURE, MY PULSE WAS LOW AND SATURATION WAS 85% IM ALSO HURTING IN MY UPPER ABD AND MY BACK" Relevant Clinical InformationSTUDYCHEST, 1 [id number]/20/2021.FINDINGSThe trachea is midline. The cardiac silhouette is unremarkable. The aorta is tortuous. There is coarsening of the interstitial markings throughout. There is no focal airspace opacity pleural effusion. The bony thorax is unremarkable.IMPRESSIONChronic interstitial fibrotic coarsening. Nothing acute.Electronically signed by: Angelo Mercedes (January 05, 2022 20:27:52)
[2022-01-05 20:36] LABS: ALANINE AMINOTRANSFERASE 19 Units/L (12-78); ALBUMIN 3.4 g/dL (3.4-5.0); ALKALINE PHOSPHATASE 126 Units/L (46-116); ASPARTATE AMINO TRANSFERASE 28 Units/L (15-37); BLOOD UREA NITROGEN 15 mg/dL (7-18); CARBON DIOXIDE 31.4 mmol/L (21-32); CHLORIDE 95 mmol/L (98-107); CREATINE KINASE 173 Units/L (26-192); CREATINE KINASE MB 3.4 ng/mL (0-4.0); CREATININE 1.58 mg/dL (0.55-1.02); SODIUM 134 mmol/L (136-145); TOTAL PROTEIN 6.8 g/dL (6.4-8.2); eGFR NON BLACK RACES 34 (>60)
[2022-01-05] MEDS ORDERED: PERCOCET TAB 5/325 MG PO ONE (21:28)
[2022-01-05] MEDS ORDERED: PERCOCET TAB 5/325 MG ONE (21:30)
[2022-01-05 22:01] LABS: CKMB % 2.6 % (<4); CREATINE KINASE MB 4.1 ng/mL (0-4.0)
[2022-01-06] MEDS: NS 1,000 ML IV 1,000 ML IV SCH ×2 (01:31→15:02)
[2022-01-06 06:00] LABS: BASOPHILS % (AUTO) 0.8 % (0.2-1.0); EOSINOPHILS # (AUTO) 0.3 x10^3/uL (0.0-0.2); EOSINOPHILS % (AUTO) 5.8 % (0.9-2.9); HEMATOCRIT 27.6 % (36.0-47.0); HEMOGLOBIN 9.9 g/dL (12.0-16.0); LYMPHOCYTES # (AUTO) 1.3 X10^3/uL (1.3-2.9); LYMPHOCYTES % (AUTO) 27.9 % (21.0-51.0); MEAN CORPUSCULAR HEMOGLOBIN 31.4 pg (27.0-34.0); MEAN CORPUSCULAR HGB CONC 35.8 g/dL (33.0-35.0); MEAN CORPUSCULAR VOLUME 87.7 fL (80.0-100.0); MEAN PLATELET VOLUME 7.2 fL (7.4-11.0); MONOCYTES # (AUTO) 0.6 x10^3/uL (0.3-0.8); MONOCYTES % (AUTO) 13.8 % (0.0-13.0); NEUTROPHILS # (AUTO) 2.3 x10^3/uL (2.2-4.8); NEUTROPHILS % (AUTO) 51.7 % (42.0-75.0); RED BLOOD COUNT 3.15 X10^6/uL (3.5-5.4); RED CELL DISTRIBUTION WIDTH 15.2 % (11.6-16.5); WHITE BLOOD COUNT 4.5 X10^3/uL (3.6-10.0)
[2022-01-06 06:21] LABS: ALANINE AMINOTRANSFERASE 17 Units/L (12-78); ALBUMIN 2.9 g/dL (3.4-5.0); ALKALINE PHOSPHATASE 122 Units/L (46-116); ASPARTATE AMINO TRANSFERASE 29 Units/L (15-37); BLOOD UREA NITROGEN 13 mg/dL (7-18); CARBON DIOXIDE 33.8 mmol/L (21-32); CHLORIDE 101 mmol/L (98-107); COR CA(FOR HYPOALB) 8.9 mg/dL (8.5-10.1); CREATINE KINASE 133 Units/L (26-192); CREATINE KINASE MB 2.7 ng/mL (0-4.0); CREATININE 1.22 mg/dL (0.55-1.02); MAGNESIUM 1.8 mg/dL (1.7-2.9); SODIUM 139 mmol/L (136-145); TOTAL PROTEIN 6.1 g/dL (6.4-8.2); eGFR NON BLACK RACES 46 (>60)
[2022-01-06] MEDS ORDERED: K-RIDER 10 MEQ/NS 100 ML 10 MEQ/100 ML BAG IV PRN (06:59)
[2022-01-06] MEDS ORDERED: POTASSIUM CHLORIDE LIQ 20 MEQ UDC PO PRN (06:59)
[2022-01-06] MEDS ORDERED: POTASSIUM CHL 60 MEQ/NS 0.45% 500 ML IV PRN (06:59)
[2022-01-06] MEDS ORDERED: MICRO K EXTEN CAP 10 MEQ PO PRN (06:59)
[2022-01-06] MEDS ORDERED: KLOR-CON PO PRN (06:59)
[2022-01-06] MEDS ORDERED: POTASSIUM CHL 40 MEQ/NS 0.45% 500 ML IV PRN (06:59)
[2022-01-06] MEDS: PERCOCET TAB 5/325 MG PO PRN ×2 (07:59→16:22)
[2022-01-06] MEDS: MAGNESIUM SULFATE 1 GRAM/100 mL PREMIX 1 G/100 ML BAG IV PRN ×2 (08:15→12:00)
[2022-01-06] MEDS: K-DUR TAB 20 MEQ PO PRN (08:30)
[2022-01-06] MEDS ORDERED: XOPENEX 1.25 MG/3 ML NEBULE NEB ONE (08:42)
[2022-01-06] MEDS: XOPENEX 1.25 MG/3 ML NEBULE NEB PRN (08:50)
[2022-01-06 08:55] LABS: CHOL/HDL RATIO 3.3 (0.0-5.0)
[2022-01-06] MEDS: PEPCID 20 MG VIAL 20 MG in NS 50 ML IV 50 ML IV SCH ×2 (11:34→21:03)
[2022-01-06] MEDS: PROTONIX INJ 40 MG VIAL IVP SCH ×2 (11:34→21:04)
[2022-01-06 11:37] LABS: CREATINE KINASE MB 2.9 ng/mL (0-4.0)
--- NOTE | 2022-01-06 15:20 | CT ---
HISTORYINTRACTIABLE BACK PAIN, LEG NUMBNESS, compression fracturesSTUDYCT lumbar spine without IV contrastCOMPARISONMRI lumbar spine 07/25/2021TECHNIQUEMultiple axial images of the lumbar spine were obtained from the thoracolumbar junction to the sacrum without the administration of IV contrast. Sagittal and coronal reformats were performed and reviewed. Dose reduction techniques including Automated Exposure Control (AEC) and adjustment of mA and kV were utilized.FINDINGSMild thoracolumbar scoliosis. Bones are osteopenic. There is a recent central compression deformity of T10 that is not seen on prior MRI. There is 35 percent loss of height. There is no displacement of the posterior cortex but mild edema is seen in the paraspinous soft tissues anteriorly and laterally.Old 20 percent compression deformity is seen of the superior endplate of L1. Previously treated compression deformities of L2 and L4 appear unchanged. There is mild scalloping of the endplates of L3.Chronic calcified disc bulge at L2-3 and posterior element hypertrophy cause moderate thecal sac effacement, similar to prior study. Broad disc bulge and posterior element hypertrophy cause prominent thecal sac effacement at L3-4, unchanged. Less prominent stenoses are seen at L4-5 and L5-S1. No stenosis is seen at T12-L1 or L1-2.Incidental note is made of probable CHF and pulmonary edema.IMPRESSIONRecent 35 percent compression fracture of T10 is probably osteoporotic compression fracture.Lumbar compression fractures appear unchanged since prior study.Electronically signed by: Richard Martines (January 06, 2022 15:18:27)
--- NOTE | 2022-01-06 15:30 | CT ---
HISTORYINTRACTABLE ABD PAINSTUDYCT abdomen pelvis with IV contrastCOMPARISONL spine CT from same dayTECHNIQUEMultiple axial images of the abdomen and pelvis were obtained from the lung bases to the pubic symphysis after the administration of IV contrast. Dose reduction techniques including Automated Exposure Control (AEC) and adjustment of mA and kV were utilized.FINDINGSThe visualized portions of the lung bases suggest possible CHF and pulmonary edema superimposed upon COPD. Probable mild bibasilar atelectasis is present, also.Likely mild fatty infiltration of the liver. Liver and spleen appear normal in size. Accessory splenule is seen inferiorly.Prior cholecystectomy. Mild prominence of the intra and extrahepatic biliary ducts is probably normal postsurgical appearance.Slight prominence of the proximal pancreatic duct is probably postsurgical appearance, also. No focal pancreatic lesion is seen.The adrenal glands appear normal.Probable 4 mm cyst in the mid right kidney is too small to fully characterize. Left kidney appears normal. Phleboliths are seen in the pelvis. Ureters and bladder appear normal.Prior anastomosis in the rectum. A few left-sided colonic diverticula are seen without evidence of diverticulitis. There is mild constipation in the cecum. Appendix is not definitely identified but no pericecal inflammation is seen. There is no evidence of bowel obstruction. There is probably a small hiatus hernia. Wall thickening in the GE junction cannot be excluded on this study. Consider further evaluation with esophagram or endoscopy.Likely prior hysterectomy. No adnexal masses are seen.There is tortuosity of the mid thoracic aorta without evidence of aneurysm formation.No suspicious lymphadenopathy.No free intraperitoneal air or fluid is seen.There is recent T10 compression fracture with 35 percent loss of height. Bones are osteopenic and this is probably benign osteoporotic compression fracture. There is a previously treated compression fracture of T9 and previously treated compression fractures of L2 and L4. Please see further description on CT of the lumbar spine report.IMPRESSIONRecent 35 percent compression fracture of T10 is probably osteoporotic compression fracture.There is probably a small hiatus hernia but wall thickening in the GE junction is not excluded. Recommend evaluation with esophagram or endoscopy.Likely mild right-sided constipation.Probable CHF and pulmonary edema superimposed upon COPD changes.Electronically signed by: Richard Martines (January 06, 2022 15:29:39)
[2022-01-06] MEDS: CLARITIN PO SCH (15:33)
[2022-01-06] MEDS: SYNTHROID 50 mcg TAB PO SCH (15:33)
--- NOTE | 2022-01-06 20:51 | DR.H&P ---
H&P - History & Physical for Day of: H&P Date: 01/05/22 - Chief Complaint Chief Complaint: EPIGASTRIC PAIN, LOW BACK PAIN - History of Present Illness History of Present Illness: IS A 71 YEAR OLD PATIENT OF DR.JOSHUA EMERSON. SHE PRESENTED TO THE ER WITH COMPLAINTS OF LOW BLOOD PRESSURE, LOW OXYGEN SATURATION, AND LOW PULSE PER HOME HEALTH NURSE. PATIENT COMPLINS OF LOW BACK PAIN AND EPIGASTRIC REGION. SHE REPORTS THAT BACK PAIN IS CHRONIC, BUT HAS WORSENED OVER THE PAST FEW WEEKS. EPIGASTRIC PAIN STARTED ONE DAY PRIOR. SHE ADMITS TO HAVING AN EGD ABOUT A WEEK AGO BY , BUT HAS NOT RECEIVED RESULTS YET. SHE DESCRIBES EPIGASTRIC PAIN CONSTANT, CRAMPING, AND RATES IT A 4/10. LOW BACK PAIN IS DESCRIBED CONSTANT, DULL, AND IS RATED A 6/10. HER PMH INCLUDES: CHF, COPD, DEPRESSION, HTN, HYPOTHYROIDISM, APPENDECTOMY, CHOLECYSTECTOMY, HYSTERECTOMY, LUMBAR DDD, OLD COMPRESSION FX OF THE LUMBAR SPINE, JOINT REPLACEMENT, AND ORTHO SURGERY. ON ARRIVAL TO THE HOSPITAL, VITALS WERE: 97.8-72-20-96%-132/63. HER HR DID OCCASIONALLY DROP TO THE 50s, BUT OXYGEN SATURATIONS REMAINED IN THE 90s ON ROOM AIR. LABS WERE OBTAINED. WBC 7.1, RBC 3.13, HGB 9.7, HCT 27.5, SODIUM 134, POTASSIUM 3.4, CHLORIDE 95, BUN 15, CREATIN INE 1.58, GLUCOSE 89, CALCIUM 8.0, TOTAL BILI 0.30, AST 28, ALT 19, ALK PHOS 126, TOTAL PROTEIN 6.8, ALBUMIN 3.4. TROPONIN ELEVATED AT 61.2. URINALYSIS OBTAINED AND REVEALED: WBC 3-5, RBC 3-5, BACTERIA NEGATIVE, LEUKOCYTES NEGATIVE. COVID-19 NEGATIVE. EKG OBTAINED AND REVEALED: NSR WITH HR 65. LEFT BUNDLE BRANCH BLOCK. CHEST XRAY OBTAINED AND REVEALED: Chronic interstitial fibrotic coarsening. Nothing acute. IN THE ER, SHE WAS GIVEN PERCOCET 5/325MG 2 TAB PO X 1. SHE WAS ADMITTED TO THE HOSPITAL OBSERVATION STATUS FOR FURTHER EVALUATION AND TREATMENT OF ABNORMAL TROPONIN, EPIGASTRIC PAIN, INTRACTABLE LOW BACK PAIN. WE WILL OBTAIN SERIAL CARDIAC ENZYMES AND EKGS. SHE WAS STARTED ON NORMAL SALINE AT KVO, THE POTASSIUM AND MAGNESIUM PROTOCOLS, PEPCID 20MG IV BID, PROTONIX 40MG IV BID, PERCOCET 5/325MG 2 TAB Q6H PRN, ROXICODONE 15MG PO TID, FLEXERIL 10MG PO TID, COLACE 100MG PO TID, CYMBALTA 60MG PO BID, XOPENEX NEBS TID PRN, SYNTHROID 50MCG PO DAILY, CLARITIN 10MG PO DAILY, REMERON 30G PO HS. WE PLAN TO OBTAIN AN ABDOMEN/PELVIS CT WITH CONTRAST AND A LUMBAR SPINE CT. OTHERWISE, WE WILL FOLLOW-UP WITH AM LABS AND CONTINUE TO MONITOR. TIME SPENT ON CLINICAL ASSESSMENT, REVIEWING LABS AND IMAGING, DECISION MAKING, AND DOCUMENTATION GREATER THAN 75 MINUTES. - Past Medical History Past Medical History: Hypertension, Depression, Hypothyroidism, COPD, CHF Additional Medical History: Resolving Covid infection., LUMBAR DDD, OLD COMPRESSION FRACTURES OF LUMBAR SPINE - Past Surgical History Surgical History: Appendectomy, Cholecystectomy - Family History Family Medical History: Hypertension - Social History Does patient currently use any type of tobacco product: Yes Have you used tobacco products in the last 12 months: Yes Type of Tobacco Use: Cigarettes How many years tobacco product used: 50 Does any household member use tobacco: Yes Alcohol Use: None Drug Use: None - Medications Home Medications: bupropion [From Wellbutrin] Allergy (Verified 01/05/22 18:45) codeine Allergy (Verified 01/05/22 18:45) diltiazem [From Cardizem] Allergy (Verified 01/05/22 18:45) gabapentin Allergy (Verified 01/05/22 18:45) meloxicam [From Mobic] Allergy (Verified 01/05/22 18:45) morphine Allergy (Verified 01/05/22 18:45) pregabalin [From Lyrica] Allergy (Verified 01/05/22 18:45) [id number] Reductase Inhibitor Allergy (Verified 01/05/22 18:45) trazodone Allergy (Verified 01/05/22 18:45) CONTINUE taking the following medications albuterol sulfate 2 puff INHALATION QID 01/05/22 [History] cyclobenzaprine 10 mg PO TID 01/05/22 [History] duloxetine 60 mg PO BID 01/05/22 [History] ergocalciferol (vitamin D2) 1,250 mcg PO WEEKLY 01/05/22 [History] fluticasone furoate-vilanterol [Breo Ellipta] 1 inh INHALATION DAILY 01/05/22 [History] loratadine [Claritin] 10 mg PO DAILY 01/05/22 [History] oxycodone-acetaminophen [Percocet] 1 tab PO Q6H PRN 01/05/22 [History] - Review of Systems Constitutional: Weakness Eyes: No Symptoms Reported ENT: No Symptoms Reported Respiratory: No Symptoms Reported Cardiovascular: No Symptoms Reported Gastrointestinal: Abdominal Pain, Constipation Genitourinary: No Symptoms Reported Musculoskeletal: Back Pain Skin: No Symptoms Reported Neurological: Weakness - Physical Exam Vital Signs: Temperature 98.0 F Pulse Rate [Left Brachial] 69 Pulse Rate 65 Respiratory Rate 18 Blood Pressure [Left Arm] 121/59 Blood Pressure 138/64 O2 Sat by Pulse Oximetry 98 Oriented: Normal Eyes: Normal Ear: Normal Nose: Normal Throat: Normal Respiratory: Diminished Throughout Cardiovascular: Normal : Normal Auscultation: Bowel Sounds: Normal Palpation: Normal Tenderness: Epigastric, Moderate Skin: Normal Musculoskeletal: Back:Lumbar, Tender Psychiatric: Normal Mood Description: Calm Affect: Normal Speech Pattern: Clear - Assessment/Plan (1) Elevated troponin Status: Acute Plan: ADMIT, SERIAL CARDIAC ENZYMES AND EKGS, NORMAL SALINE AT KVO, THE POTASSIUM AND MAGNESIUM PROTOCOLS, PEPCID 20MG IV BID, PROTONIX 40MG IV BID, PERCOCET 5/325MG 2 TAB Q6H PRN, ROXICODONE 15MG PO TID, FLEXERIL 10MG PO TID, COLACE 100MG PO TID, CYMBALTA 60MG PO BID, XOPENEX NEBS TID PRN, SYNTHROID 50MCG PO DAILY, CLARITIN 10MG PO DAILY, REMERON 30G PO HS. (2) Epigastric pain Status: Acute Plan: OBTAIN ABDOMEN/PELVIS CT (3) Lumbar pain with radiation down both legs Status: Acute Plan: OBTAIN LUMBAR SPINE CT - Allergies Allergies/Adverse Reactions: Allergies Allergy/AdvReac Type Severity Reaction Status Date / Time bupropion [From Wellbutrin] Allergy Verified 01/05/22 18:45 codeine Allergy Verified 01/05/22 18:45 diltiazem [From Cardizem] Allergy Verified 01/05/22 18:45 gabapentin Allergy Verified 01/05/22 18:45 meloxicam [From Mobic] Allergy Verified 01/05/22 18:45 morphine Allergy Verified 01/05/22 18:45 pregabalin [From Lyrica] Allergy Verified 01/05/22 18:45 Owlmwbb-AWI-SvA Reductase Allergy Verified 01/05/22 18:45 Inhibitor trazodone Allergy Verified 01/05/22 18:45
[2022-01-06] MEDS: CYMBALTA PO SCH (21:03)
[2022-01-06] MEDS: REMERON PO SCH (21:04)
[2022-01-06] MEDS: COLACE CAP 100 MG PO SCH (22:06)
[2022-01-06] MEDS: FLEXERIL TAB 10 MG PO SCH (22:07)
[2022-01-06] MEDS: ROXICODONE TAB 15 MG PO SCH (22:07)
[2022-01-07] MEDS: NS 1,000 ML IV 1,000 ML IV SCH (02:45)
[2022-01-07] MEDS: FLEXERIL TAB 10 MG PO SCH ×3 (05:47→21:19)
[2022-01-07] MEDS: ROXICODONE TAB 15 MG PO SCH ×3 (05:47→21:19)
[2022-01-07] MEDS: COLACE CAP 100 MG PO SCH ×3 (05:47→21:19)
[2022-01-07 06:11] LABS: BASOPHILS % (AUTO) 0.8 % (0.2-1.0); EOSINOPHILS # (AUTO) 0.2 x10^3/uL (0.0-0.2); HEMATOCRIT 27.3 % (36.0-47.0); HEMOGLOBIN 9.6 g/dL (12.0-16.0); LYMPHOCYTES # (AUTO) 1.4 X10^3/uL (1.3-2.9); LYMPHOCYTES % (AUTO) 32.5 % (21.0-51.0); MEAN CORPUSCULAR VOLUME 88.5 fL (80.0-100.0); MEAN PLATELET VOLUME 7.3 fL (7.4-11.0); MONOCYTES # (AUTO) 0.6 x10^3/uL (0.3-0.8); MONOCYTES % (AUTO) 14.4 % (0.0-13.0); NEUTROPHILS # (AUTO) 2.1 x10^3/uL (2.2-4.8); NEUTROPHILS % (AUTO) 48.3 % (42.0-75.0); RED BLOOD COUNT 3.08 X10^6/uL (3.5-5.4); RED CELL DISTRIBUTION WIDTH 15.4 % (11.6-16.5); WHITE BLOOD COUNT 4.3 X10^3/uL (3.6-10.0)
[2022-01-07 06:21] LABS: ALANINE AMINOTRANSFERASE 22 Units/L (12-78); ALBUMIN 2.8 g/dL (3.4-5.0); ALKALINE PHOSPHATASE 115 Units/L (46-116); ASPARTATE AMINO TRANSFERASE 22 Units/L (15-37); BLOOD UREA NITROGEN 10 mg/dL (7-18); CARBON DIOXIDE 30.9 mmol/L (21-32); CHLORIDE 105 mmol/L (98-107); CREATININE 1.06 mg/dL (0.55-1.02); SODIUM 141 mmol/L (136-145); eGFR NON BLACK RACES 54 (>60)
[2022-01-07] MEDS: PROTONIX INJ 40 MG VIAL IVP SCH ×2 (08:27→21:19)
[2022-01-07] MEDS: CYMBALTA PO SCH ×2 (08:27→21:17)
[2022-01-07] MEDS: ZOFRAN INJ 4 MG VIAL IVP PRN ×2 (08:27→13:30)
[2022-01-07] MEDS: SYNTHROID 50 mcg TAB PO SCH (08:28)
[2022-01-07] MEDS: PERCOCET TAB 5/325 MG PO PRN ×2 (08:28→17:51)
[2022-01-07] MEDS: CLARITIN PO SCH (08:29)
[2022-01-07] MEDS: PEPCID TAB 20 MG PO SCH ×2 (08:29→21:18)
[2022-01-07] MEDS: K-DUR TAB 20 MEQ PO PRN (08:29)
--- NOTE | 2022-01-07 19:03 | PCM.PROG ---
Progress Note - Progress Note for Day of Date of Exam: 01/06/22 - Subjective Subjective: IS A 71 YEAR OLD WHITE FEMALE WHO WAS ADMITTED OBSERVATION STATUS FOR TREATMENT OF EPIGASTRIC PAIN AND INTRACTABLE LUMBAR PAIN WITH RADIATION TO BOTH LEGS. SHE INITIALLY HAD AN ELEVATED TROPONIN, BUT THEY HAVE RETURNED TO NORMAL SINCE ADMISSION. SHE HAD AN EGD ABOUT A WEEK AGO WHICH REPORTEDLY REVEALED MODERATE GASTRITIS. TODAY, SHE IS ALERT AND ORIENTED, LYING IN BED ON MORNING ROUNDS. SHE CONTINUES WITH COMPLAINTS OF EPIGASTRIC PAIN AND LOW TO MID BACK PAIN. BACK PAIN IS WORSE WITH MOVEMENT. IT MODERATELY LIMITS ACTIVITIES. SHE COMPLAINS OF MILD SHORTNESS OF BREATH THIS MORNING. SHE IS CURRENTLY ON ROOM AIR. SATURATIONS HAVE BEEN IN THE 90s. ON EXAMINATION, HEART IS REGULAR IN RATE AND RHYTHM. BILATERAL LUNGS NOTED WITH DIMINISHED LUNG SOUNDS THROUGHOUT. ABDOMEN IS ROUND, SOFT, AND NOTED WITH EPIGASTRIC TENDERNESS. NORMAL BOWEL SOUNDS NOTED IN ALL QUADRANTS. TENDERNESS NOTED TO THE LUMBAR AND THORACIC SPINE. PAIN IS WORSE AT THE LOWER THORACIC REGION. NO UPPER OR LOWER EXTREMITY EDEMA NOTED. HER VITALS THIS MORNING ARE: 98.3-64-20-95%-146/66. LABS WERE OBTAINED. WBC 4.5, RBC 3.15, HGB 9.9, HCT 27.6, SODIUM 139, POTASSIUM 3.3, CHLORIDE 101, CARBON DIOXIDE 33.8, BUN 13, CREATININE 1.22, GLUCOSE 86, CALCIUM 8.0, MAGNESIUM 1.8, AST 29, ALT 17, ALK PHOS 122, TOTAL PROTEIN 6.1, ALBUMIN 2.9. CARDIAC ENZYMES ARE WITHIN NORMAL LIMITS. SHE IS CURRENTLY RECEIVING: NO RMAL SALINE AT [facility], THE POTASSIUM AND MAGNESIUM PROTOCOLS, PEPCID 20MG IV BID, PROTONIX 40MG IV BID, PERCOCET 5/325MG 2 TAB Q6H PRN, ROXICODONE 15MG PO TID, FLEXERIL 10MG PO TID, COLACE 100MG PO TID, CYMBALTA 60MG PO BID, XOPENEX NEBS TID PRN, SYNTHROID 50MCG PO DAILY, CLARITIN 10MG PO DAILY, REMERON 30G PO HS. TODAY, WE WILL OBTAIN A STOOL TO CHECK FOR H PYLORI AND OBTAIN AN ABDOMEN/PELVIS CT WITH CONTRAST AND A LUMBAR SPINE CT DUE TO INTRACTABLE BACK PAIN. OTHERWISE, WE PLAN TO FOLLOW-UP WITH AM LABS AND CONTINUE TO MONITOR. TIME SPENT ON CLINICAL ASSESSMENT, REVIEWING LABS AND IMAGING, DECISION MAKING, AND DOCUMENTATION GREATER THAN 75 MINUTES. - Past Medical Family Social History Past Med/Fam/Surg Hx: No changes since H&P Allergies: Allergies bupropion [From Wellbutrin] Allergy (Verified 01/05/22 18:45) codeine Allergy (Verified 01/05/22 18:45) diltiazem [From Cardizem] Allergy (Verified 01/05/22 18:45) gabapentin Allergy (Verified 01/05/22 18:45) meloxicam [From Mobic] Allergy (Verified 01/05/22 18:45) morphine Allergy (Verified 01/05/22 18:45) pregabalin [From Lyrica] Allergy (Verified 01/05/22 18:45) Hbjeqke-VUJ-AlX Reductase Inhibitor Allergy (Verified 01/05/22 18:45) trazodone Allergy (Verified 01/05/22 18:45) - Review of Systems ROS: No change since H&P - Vital Signs and I&O's Vital Signs: Temperature 98.3 F Pulse Rate [Left Brachial] 61 Pulse Rate 65 Respiratory Rate 18 Blood Pressure [Left Arm] 137/77 Blood Pressure 138/64 O2 Sat by Pulse Oximetry 99 Intake and Output: Intake & Output 01/05/22 01/06/22 01/07/22 01/08/22 11:59 11:59 11:59 11:59 Intake Total 220 / 220 2370 / 2370 1300 / 1300 Balance 220 / 220 2370 / 2370 1300 / 1300 - Physical Exam Oriented: Normal Eyes: Normal Ear: Normal Nose: Normal Throat: Normal Respiratory: Generalized, Diminished Cardiovascular: Normal : Normal Auscultation: Bowel Sounds: Normal Palpation: Normal Tenderness: Epigastric, Moderate Skin: Normal Musculoskeletal: Back:Lumbar, Tender Psychiatric: Normal Mood Description: Calm Affect: Normal Speech Pattern: Clear, Appropriate - Laboratory and Diagnostics Result Diagrams: 01/07/22 05:10 01/07/22 05:10 Labs: Laboratory WBC 4.3 X10^3/uL (3.6-10.0) 01/07/22 05:10 RBC 3.08 X10^6/uL (3.5-5.4) L 01/07/22 05:10 Hgb 9.6 g/dL (12.0-16.0) L 01/07/22 05:10 Hct 27.3 % (36.0-47.0) L 01/07/22 05:10 MCV 88.5 fL (80.0-100.0) 01/07/22 05:10 MCH 31.0 pg (27.0-34.0) 01/07/22 05:10 MCHC 35.0 g/dL (33.0-35.0) 01/07/22 05:10 RDW 15.4 % (11.6-16.5) 01/07/22 05:10 Plt Count 348 X10^3/uL (150.0-450.0) 01/07/22 05:10 MPV 7.3 fL (7.4-11.0) L 01/07/22 05:10 Neut % (Auto) 48.3 % (42.0-75.0) 01/07/22 05:10 Lymph % (Auto) 32.5 % (21.0-51.0) 01/07/22 05:10 [place] % (Auto) 14.4 % (0.0-13.0) H 01/07/22 05:10 Eos % (Auto) 4.0 % (0.9-2.9) H 01/07/22 05:10 Baso % (Auto) 0.8 % (0.2-1.0) 01/07/22 05:10 Neut # (Auto) 2.1 x10^3/uL (2.2-4.8) L 01/07/22 05:10 Lymph # (Auto) 1.4 X10^3/uL (1.3-2.9) 01/07/22 05:10 [place] # (Auto) 0.6 x10^3/uL (0.3-0.8) 01/07/22 05:10 Eos # (Auto) 0.2 x10^3/uL (0.0-0.2) 01/07/22 05:10 Baso # (Auto) 0.0 X10^3/uL (0.0-0.1) 01/07/22 05:10 Absolute Nucleated RBC 0.0 /100WBC 01/07/22 05:10 PT 14.9 SECONDS (11.8-14.3) 01/05/22 19:35 INR Target Range - 01/05/22 19:35 INR 1.21 (0.8-1.3) 01/05/22 19:35 APTT 33.8 SECONDS (22.9-36.5) 01/05/22 19:35 PTT Comment - 01/05/22 19:35 Sodium 141 mmol/L (136-145) 01/07/22 05:10 Corrected Sodium TNP 01/07/22 05:10 Potassium 3.8 mmol/L (3.5-5.1) 01/07/22 05:10 Chloride 105 mmol/L (98-107) 01/07/22 05:10 Carbon Dioxide 30.9 mmol/L (21-32) 01/07/22 05:10 BUN 10 mg/dL (7-18) 01/07/22 05:10 Creatinine 1.06 mg/dL (0.55-1.02) H 01/07/22 05:10 Est GFR (MDRD) Af Amer > 60 (>60) 01/07/22 05:10 Est GFR (MDRD) Non-Af 54 (>60) L 01/07/22 05:10 Glucose 103 mg/dL (65-99) H 01/07/22 05:10 Calcium 8.0 mg/dL (8.5-10.1) L 01/07/22 05:10 Corrected Calcium 9.0 mg/dL (8.5-10.1) 01/07/22 05:10 Magnesium 1.8 mg/dL (1.7-2.9) 01/06/22 05:25 Total Bilirubin 0.20 mg/dL (0.2-1.0) 01/07/22 05:10 AST 22 Units/L (15-37) 01/07/22 05:10 ALT 22 Units/L (12-78) 01/07/22 05:10 Alkaline Phosphatase 115 Units/L (46-116) 01/07/22 05:10 Creatine Kinase 142 Units/L (26-192) 01/06/22 10:37 CK-MB (CK-2) 2.9 ng/mL (0-4.0) 01/06/22 10:37 CK/CKMB % Calc 2.0 % (<4) 01/06/22 10:37 Troponin I High Sens 40.9 ng/L (4.0-60.0) 01/06/22 10:37 B-Natriuretic Peptide 481 pg/mL (0-79) H 01/07/22 05:10 Total Protein 6.0 g/dL (6.4-8.2) L 01/07/22 05:10 Albumin 2.8 g/dL (3.4-5.0) L 01/07/22 05:10 Globulin 3.2 g/dL (2.5-4.5) 01/07/22 05:10 Albumin/Globulin Ratio 0.9 Ratio (1.1-2.1) L 01/07/22 05:10 Triglycerides 93 mg/dL (0-150) 01/06/22 05:25 Cholesterol 178 mg/dL (0-200) 01/06/22 05:25 LDL Cholesterol, Calc 105 mg/dL (0-100) H 01/06/22 05:25 HDL Cholesterol 54 mg/dL (40-60) 01/06/22 05:25 Cholesterol/HDL Ratio 3.3 (0.0-5.0) 01/06/22 05:25 Specimen Type Clean catch urine 01/05/22 19:19 Urine Color Yellow (YELLOW) 01/05/22 19:19 Urine Appearance Clear (CLEAR) 01/05/22 19:19 Urine pH 5.0 (5.0 - 8.0) 01/05/22 19:19 Ur Specific [place] 1.015 (1.000-1.030) 01/05/22 19:19 Urine Protein Negative (NEGATIVE) 01/05/22 19:19 Urine Glucose (UA) Negative (NEGATIVE) 01/05/22 19:19 Urine Ketones Negative (NEGATIVE) 01/05/22 19:19 Urine Blood 2+ (NEGATIVE) 01/05/22 19:19 Urine Nitrite Negative (NEGATIVE) 01/05/22 19:19 Urine Bilirubin Negative (NEGATIVE) 01/05/22 19:19 Urine Urobilinogen Normal (NORMAL) 01/05/22 19:19 Ur Leukocyte Esterase Negative (NEGATIVE) 01/05/22 19:19 Urine RBC 3-5 /HPF (0-3) A 01/05/22 19:19 Urine WBC 3-5 /HPF (0-5) 01/05/22 19:19 Ur Squamous Epith Cells Few /HPF (NEGATIVE) 01/05/22 19:19 Urine Bacteria Negative /HPF (NEGATIVE) 01/05/22 19:19 Hyaline Casts Few /LPF (NEGATIVE) 01/05/22 19:19 Ur Culture Indicated? No/not indicated 01/05/22 19:19 Stool H. pylori Ag Negative (NEGATIVE) 01/06/22 15:29 SARS-CoV-2 (PCR) Negative (NEGATIVE) 01/05/22 22:53 - Plan (1) Epigastric pain Status: Acute Plan: OBTAIN ABDOMEN/PELVIS CT, NORMAL SALINE AT [facility], THE POTASSIUM AND MAGNESIUM PROTOCOLS, PEPCID 20MG IV BID, PROTONIX 40MG IV BID, PERCOCET 5/325MG 2 TAB Q6H PRN, ROXICODONE 15MG PO TID, FLEXERIL 10MG PO TID, COLACE 100MG PO TID, CYMBALTA 60MG PO BID, XOPENEX NEBS TID PRN, SYNTHROID 50MCG PO DAILY, CLARITIN 10MG PO DAILY, REMERON 30G PO HS. (2) Lumbar pain with radiation down both legs Status: Acute Plan: OBTAIN LUMBAR SPINE CT (3) SOB (shortness of breath) Status: Acute (4) Elevated troponin Status: Resolved (5) GERD (gastroesophageal reflux disease) Status: Chronic Qualifiers: Esophagitis presence: esophagitis presence not specified Qualified Code(s): K21.9 - Gastro-esophageal reflux disease without esophagitis (6) HTN (hypertension) Status: Chronic Qualifiers: Hypertension type: primary hypertension Qualified Code(s): I10 - Essential (primary) hypertension
[2022-01-07] MEDS: REMERON PO SCH (21:18)
[2022-01-08] MEDS: PERCOCET TAB 5/325 MG PO PRN (02:40)
[2022-01-08 06:05] LABS: BASOPHILS % (AUTO) 0.8 % (0.2-1.0); EOSINOPHILS # (AUTO) 0.2 x10^3/uL (0.0-0.2); EOSINOPHILS % (AUTO) 4.5 % (0.9-2.9); HEMATOCRIT 26.8 % (36.0-47.0); HEMOGLOBIN 9.3 g/dL (12.0-16.0); LYMPHOCYTES # (AUTO) 1.3 X10^3/uL (1.3-2.9); MEAN CORPUSCULAR HGB CONC 34.8 g/dL (33.0-35.0); MEAN CORPUSCULAR VOLUME 89.2 fL (80.0-100.0); MEAN PLATELET VOLUME 7.1 fL (7.4-11.0); MONOCYTES # (AUTO) 0.5 x10^3/uL (0.3-0.8); MONOCYTES % (AUTO) 10.9 % (0.0-13.0); NEUTROPHILS # (AUTO) 2.5 x10^3/uL (2.2-4.8); NEUTROPHILS % (AUTO) 55.8 % (42.0-75.0); RED BLOOD COUNT 3.01 X10^6/uL (3.5-5.4); WHITE BLOOD COUNT 4.5 X10^3/uL (3.6-10.0)
[2022-01-08] MEDS: COLACE CAP 100 MG PO SCH ×3 (06:14→21:32)
[2022-01-08] MEDS: NS 1,000 ML IV 1,000 ML IV SCH ×3 (06:14→21:37)
[2022-01-08] MEDS: ROXICODONE TAB 15 MG PO SCH ×3 (06:15→21:30)
[2022-01-08] MEDS: FLEXERIL TAB 10 MG PO SCH ×3 (06:15→21:31)
[2022-01-08 06:17] LABS: ALANINE AMINOTRANSFERASE 17 Units/L (12-78); ALBUMIN 3.2 g/dL (3.4-5.0); ALKALINE PHOSPHATASE 114 Units/L (46-116); ASPARTATE AMINO TRANSFERASE 26 Units/L (15-37); BLOOD UREA NITROGEN 8 mg/dL (7-18); CALCIUM 8.5 mg/dL (8.5-10.1); CARBON DIOXIDE 29.2 mmol/L (21-32); CHLORIDE 105 mmol/L (98-107); COR CA(FOR HYPOALB) 9.1 mg/dL (8.5-10.1); CREATININE 1.02 mg/dL (0.55-1.02); SODIUM 137 mmol/L (136-145); TOTAL PROTEIN 6.5 g/dL (6.4-8.2); eGFR NON BLACK RACES 56 (>60)
[2022-01-08] MEDS: PROTONIX INJ 40 MG VIAL IVP SCH ×2 (08:41→21:32)
[2022-01-08] MEDS: ZOFRAN INJ 4 MG VIAL IVP PRN (08:41)
[2022-01-08] MEDS: CLARITIN PO SCH (08:42)
[2022-01-08] MEDS: PEPCID TAB 20 MG PO SCH (08:42)
[2022-01-08] MEDS: SYNTHROID 50 mcg TAB PO SCH (08:42)
[2022-01-08] MEDS: CYMBALTA PO SCH ×2 (08:42→21:31)
[2022-01-08] MEDS: XOPENEX 1.25 MG/3 ML NEBULE NEB PRN (11:22)
--- NOTE | 2022-01-08 13:37 | PCM.PROG ---
Progress Note - Progress Note for Day of Date of Exam: 01/07/22 - Subjective Subjective: NORMAL SALINE AT [facility], THE POTASSIUM AND MAGNESIUM PROTOCOLS, PEPCID 20MG IV BID, PROTONIX 40MG IV BID, PERCOCET 5/325MG 2 TAB Q6H PRN, ROXICODONE 15MG PO TID, FLEXERIL 10MG PO TID, COLACE 100MG PO TID, CYMBALTA 60MG PO BID, XOPENEX NEBS TID PRN, SYNTHROID 50MCG PO DAILY, CLARITIN 10MG PO DAILY, REMERON 30G PO HS. - Past Medical Family Social History Past Med/Fam/Surg Hx: No changes since H&P Allergies: Allergies bupropion [From Wellbutrin] Allergy (Verified 01/05/22 18:45) codeine Allergy (Verified 01/05/22 18:45) diltiazem [From Cardizem] Allergy (Verified 01/05/22 18:45) gabapentin Allergy (Verified 01/05/22 18:45) meloxicam [From Mobic] Allergy (Verified 01/05/22 18:45) morphine Allergy (Verified 01/05/22 18:45) pregabalin [From Lyrica] Allergy (Verified 01/05/22 18:45) [id number]-SMT-CnP Reductase Inhibitor Allergy (Verified 01/05/22 18:45) trazodone Allergy (Verified 01/05/22 18:45) - Review of Systems ROS: No change since H&P - Vital Signs and I&O's Vital Signs: Temperature 97.8 F Pulse Rate [Left Brachial] 68 Pulse Rate 65 Respiratory Rate 20 Blood Pressure [Left Arm] 155/55 Blood Pressure 138/64 O2 Sat by Pulse Oximetry 95 Intake and Output: Intake & Output 01/06/22 01/07/22 01/08/22 01/09/22 11:59 11:59 11:59 11:59 Intake Total 220 / 220 2370 / 2370 2424 / 2424 Balance 220 / 220 2370 / 2370 242 / 2424 - Physical Exam Oriented: Normal Eyes: Normal Ear: Normal Nose: Normal Throat: Normal Respiratory: Generalized, Diminished Cardiovascular: Normal : Normal Auscultation: Bowel Sounds: Normal Palpation: Normal Tenderness: Epigastric, Moderate Skin: Normal Musculoskeletal: Back:Lumbar, Tender Psychiatric: Normal Mood Description: Calm Affect: Normal Speech Pattern: Clear, Appropriate - Laboratory and Diagnostics Result Diagrams: 01/08/22 05:40 01/08/22 05:40 Labs: Laboratory WBC 4.5 X10^3/uL (3.6-10.0) 01/08/22 05:40 RBC 3.01 X10^6/uL (3.5-5.4) L 01/08/22 05:40 Hgb 9.3 g/dL (12.0-16.0) L 01/08/22 05:40 Hct 26.8 % (36.0-47.0) L 01/08/22 05:40 MCV 89.2 fL (80.0-100.0) 01/08/22 05:40 MCH 31.0 pg (27.0-34.0) 01/08/22 05:40 MCHC 34.8 g/dL (33.0-35.0) 01/08/22 05:40 RDW 15.0 % (11.6-16.5) 01/08/22 05:40 Plt Count 333 X10^3/uL (150.0-450.0) 01/08/22 05:40 MPV 7.1 fL (7.4-11.0) L 01/08/22 05:40 Neut % (Auto) 55.8 % (42.0-75.0) 01/08/22 05:40 Lymph % (Auto) 28.0 % (21.0-51.0) 01/08/22 05:40 [place] % (Auto) 10.9 % (0.0-13.0) 01/08/22 05:40 Eos % (Auto) 4.5 % (0.9-2.9) H 01/08/22 05:40 Baso % (Auto) 0.8 % (0.2-1.0) 01/08/22 05:40 Neut # (Auto) 2.5 x10^3/uL (2.2-4.8) 01/08/22 05:40 Lymph # (Auto) 1.3 X10^3/uL (1.3-2.9) 01/08/22 05:40 [place] # (Auto) 0.5 x10^3/uL (0.3-0.8) 01/08/22 05:40 Eos # (Auto) 0.2 x10^3/uL (0.0-0.2) 01/08/22 05:40 Baso # (Auto) 0.0 X10^3/uL (0.0-0.1) 01/08/22 05:40 Absolute Nucleated RBC 0.1 /100WBC 01/08/22 05:40 PT 14.9 SECONDS (11.8-14.3) 01/05/22 19:35 INR Target Range - 01/05/22 19:35 INR 1.21 (0.8-1.3) 01/05/22 19:35 APTT 33.8 SECONDS (22.9-36.5) 01/05/22 19:35 PTT Comment - 01/05/22 19:35 Sodium 137 mmol/L (136-145) 01/08/22 05:40 Corrected Sodium TNP 01/08/22 05:40 Potassium 4.4 mmol/L (3.5-5.1) 01/08/22 05:40 Chloride 105 mmol/L (98-107) 01/08/22 05:40 Carbon Dioxide 29.2 mmol/L (21-32) 01/08/22 05:40 BUN 8 mg/dL (7-18) 01/08/22 05:40 Creatinine 1.02 mg/dL (0.55-1.02) 01/08/22 05:40 Est GFR (MDRD) Af Amer > 60 (>60) 01/08/22 05:40 Est GFR (MDRD) Non-Af 56 (>60) L 01/08/22 05:40 Glucose 77 mg/dL (65-99) 01/08/22 05:40 Calcium 8.5 mg/dL (8.5-10.1) 01/08/22 05:40 Corrected Calcium 9.1 mg/dL (8.5-10.1) 01/08/22 05:40 Magnesium 1.8 mg/dL (1.7-2.9) 01/06/22 05:25 Total Bilirubin 0.20 mg/dL (0.2-1.0) 01/08/22 05:40 AST 26 Units/L (15-37) 01/08/22 05:40 ALT 17 Units/L (12-78) 01/08/22 05:40 Alkaline Phosphatase 114 Units/L (46-116) 01/08/22 05:40 Creatine Kinase 142 Units/L (26-192) 01/06/22 10:37 CK-MB (CK-2) 2.9 ng/mL (0-4.0) 01/06/22 10:37 CK/CKMB % Calc 2.0 % (<4) 01/06/22 10:37 Troponin I High Sens 40.9 ng/L (4.0-60.0) 01/06/22 10:37 B-Natriuretic Peptide 502 pg/mL (0-79) H* 01/08/22 05:40 Total Protein 6.5 g/dL (6.4-8.2) 01/08/22 05:40 Albumin 3.2 g/dL (3.4-5.0) L 01/08/22 05:40 Globulin 3.3 g/dL (2.5-4.5) 01/08/22 05:40 Albumin/Globulin Ratio 1.0 Ratio (1.1-2.1) L 01/08/22 05:40 Triglycerides 93 mg/dL (0-150) 01/06/22 05:25 Cholesterol 178 mg/dL (0-200) 01/06/22 05:25 LDL Cholesterol, Calc 105 mg/dL (0-100) H 01/06/22 05:25 HDL Cholesterol 54 mg/dL (40-60) 01/06/22 05:25 Cholesterol/HDL Ratio 3.3 (0.0-5.0) 01/06/22 05:25 Specimen Type Clean catch urine 01/05/22 19:19 Urine Color Yellow (YELLOW) 01/05/22 19:19 Urine Appearance Clear (CLEAR) 01/05/22 19:19 Urine pH 5.0 (5.0 - 8.0) 01/05/22 19:19 Ur Specific [place] 1.015 (1.000-1.030) 01/05/22 19:19 Urine Protein Negative (NEGATIVE) 01/05/22 19:19 Urine Glucose (UA) Negative (NEGATIVE) 01/05/22 19:19 Urine Ketones Negative (NEGATIVE) 01/05/22 19:19 Urine Blood 2+ (NEGATIVE) 01/05/22 19:19 Urine Nitrite Negative (NEGATIVE) 01/05/22 19:19 Urine Bilirubin Negative (NEGATIVE) 01/05/22 19:19 Urine Urobilinogen Normal (NORMAL) 01/05/22 19:19 Ur Leukocyte Esterase Negative (NEGATIVE) 01/05/22 19:19 Urine RBC 3-5 /HPF (0-3) A 01/05/22 19:19 Urine WBC 3-5 /HPF (0-5) 01/05/22 19:19 Ur Squamous Epith Cells Few /HPF (NEGATIVE) 01/05/22 19:19 Urine Bacteria Negative /HPF (NEGATIVE) 01/05/22 19:19 Hyaline Casts Few /LPF (NEGATIVE) 01/05/22 19:19 Ur Culture Indicated? No/not indicated 01/05/22 19:19 Stool H. pylori Ag Negative (NEGATIVE) 01/06/22 15:29 SARS-CoV-2 (PCR) Negative (NEGATIVE) 01/05/22 22:53 - Plan (1) Epigastric pain Status: Acute Plan: NORMAL SALINE AT [facility], THE POTASSIUM AND MAGNESIUM PROTOCOLS, PEPCID 20MG IV BID, PROTONIX 40MG IV BID, PERCOCET 5/325MG 2 TAB Q6H PRN, ROXICODONE 15MG PO TID, FLEXERIL 10MG PO TID, COLACE 100MG PO TID, CYMBALTA 60MG PO BID, XOPENEX NEBS TID PRN, SYNTHROID 50MCG PO DAILY, CLARITIN 10MG PO DAILY, REMERON 30G PO HS. (2) Lumbar pain with radiation down both legs Status: Acute Plan: OBTAIN LUMBAR SPINE CT (3) SOB (shortness of breath) Status: Acute (4) Elevated troponin Status: Resolved Plan: ADMIT, SERIAL CARDIAC ENZYMES AND EKGS, NORMAL SALINE AT [facility], THE POTASSIUM AND MAGNESIUM PROTOCOLS, PEPCID 20MG IV BID, PROTONIX 40MG IV BID, PERCOCET 5/325MG 2 TAB Q6H PRN, ROXICODONE 15MG PO TID, FLEXERIL 10MG PO TID, COLACE 100MG PO TID, CYMBALTA 60MG PO BID, XOPENEX NEBS TID PRN, SYNTHROID 50MCG PO DAILY, CLARITIN 10MG PO DAILY, REMERON 30G PO HS. (5) GERD (gastroesophageal reflux disease) Status: Chronic Qualifiers: Esophagitis presence: esophagitis presence not specified Qualified Code(s): K21.9 - Gastro-esophageal reflux disease without esophagitis (6) HTN (hypertension) Status: Chronic Qualifiers: Hypertension type: primary hypertension Qualified Code(s): I10 - Essential (primary) hypertension
[2022-01-08] MEDS: REMERON PO SCH (21:31)
[2022-01-09] MEDS: PERCOCET TAB 5/325 MG PO PRN (03:34)
[2022-01-09 05:39] LABS: BASOPHILS % (AUTO) 0.5 % (0.2-1.0); EOSINOPHILS # (AUTO) 0.3 x10^3/uL (0.0-0.2); HEMATOCRIT 30.1 % (36.0-47.0); HEMOGLOBIN 10.3 g/dL (12.0-16.0); LYMPHOCYTES # (AUTO) 1.5 X10^3/uL (1.3-2.9); LYMPHOCYTES % (AUTO) 29.4 % (21.0-51.0); MEAN CORPUSCULAR HEMOGLOBIN 30.4 pg (27.0-34.0); MEAN CORPUSCULAR HGB CONC 34.3 g/dL (33.0-35.0); MEAN CORPUSCULAR VOLUME 88.6 fL (80.0-100.0); MEAN PLATELET VOLUME 7.3 fL (7.4-11.0); MONOCYTES # (AUTO) 0.5 x10^3/uL (0.3-0.8); MONOCYTES % (AUTO) 10.2 % (0.0-13.0); NEUTROPHILS # (AUTO) 2.8 x10^3/uL (2.2-4.8); NEUTROPHILS % (AUTO) 54.9 % (42.0-75.0); WHITE BLOOD COUNT 5.1 X10^3/uL (3.6-10.0)
[2022-01-09 05:45] LABS: ALANINE AMINOTRANSFERASE 17 Units/L (12-78); ALBUMIN 3.3 g/dL (3.4-5.0); ALKALINE PHOSPHATASE 124 Units/L (46-116); ASPARTATE AMINO TRANSFERASE 25 Units/L (15-37); BLOOD UREA NITROGEN 7 mg/dL (7-18); CALCIUM 8.9 mg/dL (8.5-10.1); CARBON DIOXIDE 30.3 mmol/L (21-32); CHLORIDE 103 mmol/L (98-107); COR CA(FOR HYPOALB) 9.5 mg/dL (8.5-10.1); CREATININE 1.05 mg/dL (0.55-1.02); SODIUM 140 mmol/L (136-145); TOTAL PROTEIN 6.9 g/dL (6.4-8.2); eGFR NON BLACK RACES 55 (>60)
[2022-01-09] MEDS: COLACE CAP 100 MG PO SCH ×3 (05:58→21:01)
[2022-01-09] MEDS: ROXICODONE TAB 15 MG PO SCH (05:58)
[2022-01-09] MEDS: FLEXERIL TAB 10 MG PO SCH ×3 (05:58→21:01)
[2022-01-09] MEDS: TOPROL XL PO SCH ×2 (08:32→10:36)
[2022-01-09] MEDS: ZOLOFT PO SCH ×2 (08:32→10:36)
[2022-01-09] MEDS: PROTONIX INJ 40 MG VIAL IVP SCH ×2 (08:32→21:40)
[2022-01-09] MEDS: CLARITIN PO SCH (08:32)
[2022-01-09] MEDS: PEPCID TAB 20 MG PO SCH (08:33)
[2022-01-09] MEDS: SYNTHROID 50 mcg TAB PO SCH (08:33)
[2022-01-09] MEDS: CYMBALTA PO SCH ×2 (08:34→21:01)
[2022-01-09] MEDS: XOPENEX 1.25 MG/3 ML NEBULE NEB PRN (09:31)
[2022-01-09] MEDS ORDERED: ZOLOFT ONE (09:59)
[2022-01-09] MEDS: LASIX PO SCH (10:35)
[2022-01-09] MEDS: ELIQUIS PO SCH ×2 (10:35→21:01)
[2022-01-09] MEDS: ZESTRIL TAB 10 MG PO SCH (10:36)
[2022-01-09] MEDS: TORADOL 15 MG VIAL IVP SCH ×2 (10:37→17:45)
[2022-01-09] MEDS: OXYCONTIN 20 MG PO SCH ×2 (10:37→21:01)
[2022-01-09] MEDS: ROXICODONE TAB 15 MG PO PRN (14:36)
[2022-01-09] MEDS: ZOFRAN INJ 4 MG VIAL IVP PRN (14:38)
--- NOTE | 2022-01-09 16:40 | PCM.PROG ---
Progress Note - Progress Note for Day of Date of Exam: 01/08/22 - Subjective Subjective: IS A 71 YEAR OLD WHITE FEMALE WHO WAS ADMITTED OBSERVATION STATUS FOR TREATMENT OF EPIGASTRIC PAIN AND INTRACTABLE LUMBAR PAIN WITH RADIATION TO BOTH LEGS. SHE INITIALLY HAD AN ELEVATED TROPONIN, BUT THEY HAVE RETURNED TO NORMAL SINCE ADMISSION. SHE HAD AN EGD ABOUT A WEEK AGO WHICH REPORTEDLY REVEALED MODERATE GASTRITIS. TODAY, SHE IS ALERT AND ORIENTED, LYING IN BED ON MORNING ROUNDS. SHE CONTINUES WITH COMPLAINTS OF EPIGASTRIC PAIN AND MID TO LOW BACK PAIN. BACK PAIN IS WORSE WITH MOVEMENT. IT MODERATELY LIMITS ACTIVITIES. SHE CONTINUES WITH COMPLAINTS OF MILD SHORTNESS OF BREATH AT TIMES. SHE IS CURRENTLY ON ROOM AIR. SATURATIONS HAVE BEEN IN THE 90s. ON EXAMINATION, HEART IS REGULAR IN RATE AND RHYTHM. BILATERAL LUNGS NOTED WITH DIMINISHED LUNG SOUNDS THROUGHOUT. ABDOMEN IS ROUND, SOFT, AND NOTED WITH EPIGASTRIC TENDERNESS. NORMAL BOWEL SOUNDS NOTED IN ALL QUADRANTS. MODERATE TENDERNESS NOTED TO THE LUMBAR AND THORACIC SPINE. PAIN IS WORSE AT THE LOWER THORACIC REGION. NO UPPER OR LOWER EXTREMITY EDEMA NOTED. PATIENT REPORTS BEING UNABLE TO AMBULATE WITHOUT SEVERE PAIN. HER VITALS THIS MORNING ARE: 97.8-68-20-95%-155/55. LABS WERE OBTAINED. WBC 4.5, RBC 3.01, HGB 9.3, HCT 26.8, SODIUM 137, POTASSIUM 4.4, CHLORIDE 105, BUN 8, CREATININE 1.02, GLUCOSE 77, CALCIUM 8.5, AST 26, ALT 17, ALK PHOS 114, TOTAL PROTEIN 6.5, ALBUMIN 3.2, BNP 502. STOOL IS NEGATIVE FOR H.PYLORI. WE OBTAINED AN ECHO YESTERDAY. IT REVEALED AN EJECTION FRACTION OF 59%. ABDOMEN/PELVIS CT ON THE REVEALED: Recent 35 percent compression fracture of T10 is probably osteoporotic compression fracture. There is probably a small hiatus hernia but wall thickening in the GE junction is not excluded. Recommend evaluation with esophagram or endoscopy. Likely mild right-sided constipation. Probable CHF and pulmonary edema superimposed upon COPD changes. LUMBAR CT REVEALED: Recent 35 percent compression fracture of T10 is probably osteoporotic compression fracture. Lumbar compression fractures appear unchanged since prior study. SHE IS CURRENTLY RECEIVING: NORMAL SALINE AT KVO, THE POTASSIUM AND MAGNESIUM PROTOCOLS, PEPCID 20MG PO DAILY, PROTONIX 40MG IV BID, PERCOCET 5/325MG 2 TAB Q6H PRN, ROXICODONE 15MG PO TID, FLEXERIL 10MG PO TID, COLACE 100MG PO TID, CYMBALTA 60MG PO BID, XOPENEX NEBS TID PRN, SYNTHROID 50MCG PO DAILY, CLARITIN 10MG PO DAILY, REMERON 30G PO HS. DUE TO PERSISTENT ABDOMINAL PAIN, WE WILL CONSULT TODAY. WE WILL HAVE PHYSICAL THERAPY EVALUATE [facility]. OTHERWISE, WE PLAN TO FOLLOW-UP WITH AM LABS AND CONTINUE TO MONITOR. TIME SPENT ON CLINICAL ASSESSMENT, REVIEWING LABS AND IMAGING, DECISION MAKING, AND DOCUMENTATION GREATER THAN 75 MINUTES. - Past Medical Family Social History Past Med/Fam/Surg Hx: No changes since H&P Allergies: Allergies bupropion [From Wellbutrin] Allergy (Verified 01/05/22 18:45) codeine Allergy (Verified 01/05/22 18:45) diltiazem [From Cardizem] Allergy (Verified 01/05/22 18:45) gabapentin Allergy (Verified 01/05/22 18:45) ketorolac [From Toradol] Allergy (Verified 01/09/22 10:37) meloxicam [From Mobic] Allergy (Verified 01/05/22 18:45) morphine Allergy (Verified 01/05/22 18:45) pregabalin [From Lyrica] Allergy (Verified 01/05/22 18:45) [id number]-MfK Reductase Inhibitor Allergy (Verified 01/05/22 18:45) trazodone Allergy (Verified 01/05/22 18:45) - Review of Systems ROS: No change since H&P - Vital Signs and I&O's Vital Signs: Temperature 97.9 F Pulse Rate [Left Brachial] 72 Pulse Rate 67 Respiratory Rate 20 Blood Pressure [Left Arm] 130/63 Blood Pressure 138/64 O2 Sat by Pulse Oximetry 97 Intake and Output: Intake & Output 01/07/22 01/08/22 01/09/22 01/10/22 11:59 11:59 11:59 11:59 Intake Total 2370 / 2370 2424 / 2424 1850 / 1850 440 / 440 Balance 2370 / 2370 2424 / 2424 1850 / 1850 440 / 440 - Physical Exam Oriented: Normal Eyes: Normal Ear: Normal Nose: Normal Throat: Normal Respiratory: Generalized, Diminished Cardiovascular: Normal : Normal Auscultation: Bowel Sounds: Normal Palpation: Normal Tenderness: Diffuse, Moderate Skin: Normal Musculoskeletal: Back:Thoracic, Back:Lumbar, Tender Psychiatric: Normal Mood Description: Calm Affect: Normal Speech Pattern: Clear, Appropriate - Laboratory and Diagnostics Result Diagrams: 01/09/22 05:12 01/09/22 05:12 Labs: Laboratory WBC 5.1 X10^3/uL (3.6-10.0) 01/09/22 05:12 RBC 3.40 X10^6/uL (3.5-5.4) L 01/09/22 05:12 Hgb 10.3 g/dL (12.0-16.0) L 01/09/22 05:12 Hct 30.1 % (36.0-47.0) L 01/09/22 05:12 MCV 88.6 fL (80.0-100.0) 01/09/22 05:12 MCH 30.4 pg (27.0-34.0) 01/09/22 05:12 MCHC 34.3 g/dL (33.0-35.0) 01/09/22 05:12 RDW 15.0 % (11.6-16.5) 01/09/22 05:12 Plt Count 359 X10^3/uL (150.0-450.0) 01/09/22 05:12 MPV 7.3 fL (7.4-11.0) L 01/09/22 05:12 Neut % (Auto) 54.9 % (42.0-75.0) 01/09/22 05:12 Lymph % (Auto) 29.4 % (21.0-51.0) 01/09/22 05:12 [place] % (Auto) 10.2 % (0.0-13.0) 01/09/22 05:12 Eos % (Auto) 5.0 % (0.9-2.9) H 01/09/22 05:12 Baso % (Auto) 0.5 % (0.2-1.0) 01/09/22 05:12 Neut # (Auto) 2.8 x10^3/uL (2.2-4.8) 01/09/22 05:12 Lymph # (Auto) 1.5 X10^3/uL (1.3-2.9) 01/09/22 05:12 [place] # (Auto) 0.5 x10^3/uL (0.3-0.8) 01/09/22 05:12 Eos # (Auto) 0.3 x10^3/uL (0.0-0.2) H 01/09/22 05:12 Baso # (Auto) 0.0 X10^3/uL (0.0-0.1) 01/09/22 05:12 Absolute Nucleated RBC 0.0 /100WBC 01/09/22 05:12 PT 14.9 SECONDS (11.8-14.3) 01/05/22 19:35 INR Target Range - 01/05/22 19:35 INR 1.21 (0.8-1.3) 01/05/22 19:35 APTT 33.8 SECONDS (22.9-36.5) 01/05/22 19:35 PTT Comment - 01/05/22 19:35 Sodium 140 mmol/L (136-145) 01/09/22 05:12 Corrected Sodium TNP 01/09/22 05:12 Potassium 4.6 mmol/L (3.5-5.1) 01/09/22 05:12 Chloride 103 mmol/L (98-107) 01/09/22 05:12 Carbon Dioxide 30.3 mmol/L (21-32) 01/09/22 05:12 BUN 7 mg/dL (7-18) 01/09/22 05:12 Creatinine 1.05 mg/dL (0.55-1.02) H 01/09/22 05:12 Est GFR (MDRD) Af Amer > 60 (>60) 01/09/22 05:12 Est GFR (MDRD) Non-Af 55 (>60) L 01/09/22 05:12 Glucose 91 mg/dL (65-99) 01/09/22 05:12 Calcium 8.9 mg/dL (8.5-10.1) 01/09/22 05:12 Corrected Calcium 9.5 mg/dL (8.5-10.1) 01/09/22 05:12 Magnesium 1.8 mg/dL (1.7-2.9) 01/06/22 05:25 Total Bilirubin 0.40 mg/dL (0.2-1.0) 01/09/22 05:12 AST 25 Units/L (15-37) 01/09/22 05:12 ALT 17 Units/L (12-78) 01/09/22 05:12 Alkaline Phosphatase 124 Units/L (46-116) H 01/09/22 05:12 Creatine Kinase 142 Units/L (26-192) 01/06/22 10:37 CK-MB (CK-2) 2.9 ng/mL (0-4.0) 01/06/22 10:37 CK/CKMB % Calc 2.0 % (<4) 01/06/22 10:37 Troponin I High Sens 40.9 ng/L (4.0-60.0) 01/06/22 10:37 B-Natriuretic Peptide 502 pg/mL (0-79) H* 01/08/22 05:40 Total Protein 6.9 g/dL (6.4-8.2) 01/09/22 05:12 Albumin 3.3 g/dL (3.4-5.0) L 01/09/22 05:12 Globulin 3.6 g/dL (2.5-4.5) 01/09/22 05:12 Albumin/Globulin Ratio 0.9 Ratio (1.1-2.1) L 01/09/22 05:12 Triglycerides 93 mg/dL (0-150) 01/06/22 05:25 Cholesterol 178 mg/dL (0-200) 01/06/22 05:25 LDL Cholesterol, Calc 105 mg/dL (0-100) H 01/06/22 05:25 HDL Cholesterol 54 mg/dL (40-60) 01/06/22 05:25 Cholesterol/HDL Ratio 3.3 (0.0-5.0) 01/06/22 05:25 Specimen Type Clean catch urine 01/05/22 19:19 Urine Color Yellow (YELLOW) 01/05/22 19:19 Urine Appearance Clear (CLEAR) 01/05/22 19:19 Urine pH 5.0 (5.0 - 8.0) 01/05/22 19:19 Ur Specific [place] 1.015 (1.000-1.030) 01/05/22 19:19 Urine Protein Negative (NEGATIVE) 01/05/22 19:19 Urine Glucose (UA) Negative (NEGATIVE) 01/05/22 19:19 Urine Ketones Negative (NEGATIVE) 01/05/22 19:19 Urine Blood 2+ (NEGATIVE) 01/05/22 19:19 Urine Nitrite Negative (NEGATIVE) 01/05/22 19:19 Urine Bilirubin Negative (NEGATIVE) 01/05/22 19:19 Urine Urobilinogen Normal (NORMAL) 01/05/22 19:19 Ur Leukocyte Esterase Negative (NEGATIVE) 01/05/22 19:19 Urine RBC 3-5 /HPF (0-3) A 01/05/22 19:19 Urine WBC 3-5 /HPF (0-5) 01/05/22 19:19 Ur Squamous Epith Cells Few /HPF (NEGATIVE) 01/05/22 19:19 Urine Bacteria Negative /HPF (NEGATIVE) 01/05/22 19:19 Hyaline Casts Few /LPF (NEGATIVE) 01/05/22 19:19 Ur Culture Indicated? No/not indicated 01/05/22 19:19 Stool H. pylori Ag Negative (NEGATIVE) 01/06/22 15:29 SARS-CoV-2 (PCR) Negative (NEGATIVE) 01/05/22 22:53 - Plan (1) Epigastric pain Status: Acute Plan: NORMAL SALINE AT KVO, THE POTASSIUM AND MAGNESIUM PROTOCOLS, PEPCID 20MG PO DAILY, PROTONIX 40MG IV BID, PERCOCET 5/325MG 2 TAB Q6H PRN, ROXICODONE 15MG PO TID, FLEXERIL 10MG PO TID, COLACE 100MG PO TID, CYMBALTA 60MG PO BID, XOPENEX NEBS TID PRN, SYNTHROID 50MCG PO DAILY, CLARITIN 10MG PO DAILY, REMERON 30G PO HS. (2) Lumbar pain with radiation down both legs Status: Acute Plan: OBTAIN LUMBAR SPINE CT (3) SOB (shortness of breath) Status: Acute (4) Elevated troponin Status: Resolved Plan: ADMIT, SERIAL CARDIAC ENZYMES AND EKGS, NORMAL SALINE AT KVO, THE POTASSIUM AND MAGNESIUM PROTOCOLS, PEPCID 20MG IV BID, PROTONIX 40MG IV BID, PERCOCET 5/325MG 2 TAB Q6H PRN, ROXICODONE 15MG PO TID, FLEXERIL 10MG PO TID, COLACE 100MG PO TID, CYMBALTA 60MG PO BID, XOPENEX NEBS TID PRN, SYNTHROID 50MCG PO DAILY, CLARITIN 10MG PO DAILY, REMERON 30G PO HS. (5) GERD (gastroesophageal reflux disease) Status: Chronic Qualifiers: Esophagitis presence: esophagitis presence not specified Qualified Code(s): K21.9 - Gastro-esophageal reflux disease without esophagitis (6) HTN (hypertension) Status: Chronic Qualifiers: Hypertension type: primary hypertension Qualified Code(s): I10 - Essential (primary) hypertension
--- NOTE | 2022-01-09 16:47 | PCM.PROG ---
Progress Note - Progress Note for Day of Date of Exam: 01/09/22 - Subjective Subjective: IS A 71 YEAR OLD WHITE FEMALE WHO WAS ADMITTED OBSERVATION STATUS FOR TREATMENT OF EPIGASTRIC PAIN AND INTRACTABLE LUMBAR PAIN WITH RADIATION TO BOTH LEGS. SHE HAD AN EGD ABOUT A WEEK AND A HALF AGO WHICH REPORTEDLY REVEALED MODERATE GASTRITIS AND ESOPHAGITIS. TODAY, SHE IS ALERT AND ORIENTED, LYING IN BED ON MORNING ROUNDS. SHE CONTINUES WITH COMPLAINTS OF EPIGASTRIC PAIN AND MID TO LOW BACK PAIN. BACK PAIN IS WORSE WITH MOVEMENT AND IS INCREASED TODAY. IT MODERATELY LIMITS ACTIVITIES. SHE CONTINUES WITH COMPLAINTS OF MILD SHORTNESS OF BREATH AT TIMES. SHE IS CURRENTLY ON ROOM AIR. SATURATIONS HAVE BEEN IN THE 90s. ON EXAMINATION, HEART IS REGULAR IN RATE AND RHYTHM. BILATERAL LUNGS NOTED WITH DIMINISHED LUNG SOUNDS THROUGHOUT. ABDOMEN IS ROUND, SOFT, AND NOTED WITH EPIGASTRIC TENDERNESS. NORMAL BOWEL SOUNDS NOTED IN ALL QUADRANTS. MODERATE TENDERNESS NOTED TO THE LUMBAR AND THORACIC SPINE. PAIN IS WORSE AT THE LOWER THORACIC REGION. NO UPPER OR LOWER EXTREMITY EDEMA NOTED. PATIENT REPORTS BEING UNABLE TO AMBULATE WITHOUT SEVERE PAIN. HER VITALS THIS MORNING ARE: 97.6-72-18-99%-151/67. LABS WERE OBTAINED. WBC 5.1, RBC 3.40, HGB 10.3, HCT 30.1, SODIUM 140, POTASSIUM 4.6, CHLORIDE 103, BUN 7, CREATININE 1.05, GLUCOSE 91, AST 25, ALT 17, ALK PHOS 124, TOTAL PROTEIN 6.9, ALBUMIN 3.3. STOOL IS NEGATIVE FOR H.PYLORI. ABDOMEN/PELVIS CT ON THE REVEALED: Recent 35 percent compression fracture of T10 is probably osteoporotic compression fracture. There is probably a small hiatus hernia but wall thickening in the GE junction is not excluded. Recommend evaluation with esophagram or endoscopy. Likely mild right-sided constipation. Probable CHF and pulmonary edema superimposed upon COPD changes. LUMBAR CT REVEALED: Recent 35 percent compression fracture of T10 is probably osteoporotic compression fracture. Lumbar compression fractures appear unchanged since prior study. FOLLOWING DISCHARGE, SHE WILL NEED A REFERRAL TO [facility]GE[facility]. SHE IS CURRENTLY RECEIVING: NORMAL SALINE AT KVO, THE POTASSIUM AND MAGNESIUM PROTOCOLS, PEPCID 20MG PO DAILY, PROTONIX 40MG IV BID, PERCOCET 5/325MG 2 TAB Q6H PRN, ROXICODONE 15MG PO TID, FLEXERIL 10MG PO TID, COLACE 100MG PO TID, CYMBALTA 60MG PO BID, XOPENEX NEBS TID PRN, SYNTHROID 50MCG PO DAILY, CLARITIN 10MG PO DAILY, REMERON 30G PO HS. TODAY, WE WILL DISCONTINUE THE PERCOCET. WE WILL ADD OXYCONTIN CR 20MG PO Q12H, INCREASE ROXICODONE TO 15MG PO Q6H PRN, AND ADD TORADOL 15MG IV Q8H. OTHERWISE, WE PLAN TO FOLLOW-UP WITH AM LABS AND CONTINUE TO MONITOR. TIME SPENT ON CLINICAL ASSESSMENT, REVIEWING LABS AND IMAGING, DECISION MAKING, AND DOCUMENTATION GREATER THAN 75 MINUTES. - Past Medical Family Social History Past Med/Fam/Surg Hx: No changes since H&P Allergies: Allergies bupropion [From Wellbutrin] Allergy (Verified 01/05/22 18:45) codeine Allergy (Verified 01/05/22 18:45) diltiazem [From Cardizem] Allergy (Verified 01/05/22 18:45) gabapentin Allergy (Verified 01/05/22 18:45) ketorolac [From Toradol] Allergy (Verified 01/09/22 10:37) meloxicam [From Mobic] Allergy (Verified 01/05/22 18:45) morphine Allergy (Verified 01/05/22 18:45) pregabalin [From Lyrica] Allergy (Verified 01/05/22 18:45) Dppjpok-OVJ-FmB Reductase Inhibitor Allergy (Verified 01/05/22 18:45) trazodone Allergy (Verified 01/05/22 18:45) - Review of Systems ROS: No change since H&P - Vital Signs and I&O's Vital Signs: Temperature 97.9 F Pulse Rate [Left Brachial] 72 Pulse Rate 67 Respiratory Rate 20 Blood Pressure [Left Arm] 130/63 Blood Pressure 138/64 O2 Sat by Pulse Oximetry 97 Intake and Output: Intake & Output 01/07/22 01/08/22 01/09/22 01/10/22 11:59 11:59 11:59 11:59 Intake Total 2370 / 2370 2424 / 2424 1850 / 1850 440 / 440 Balance 2370 / 2370 2424 / 2424 1850 / 1850 440 / 440 - Physical Exam Oriented: Normal Eyes: Normal Ear: Normal Nose: Normal Throat: Normal Respiratory: Generalized, Diminished Cardiovascular: Normal : Normal Auscultation: Bowel Sounds: Normal Palpation: Normal Tenderness: Diffuse, Moderate Skin: Normal Musculoskeletal: Back:Thoracic, Back:Lumbar, Tender Psychiatric: Normal Mood Description: Calm Affect: Normal Speech Pattern: Clear, Appropriate - Laboratory and Diagnostics Result Diagrams: 01/09/22 05:12 01/09/22 05:12 Labs: Laboratory WBC 5.1 X10^3/uL (3.6-10.0) 01/09/22 05:12 RBC 3.40 X10^6/uL (3.5-5.4) L 01/09/22 05:12 Hgb 10.3 g/dL (12.0-16.0) L 01/09/22 05:12 Hct 30.1 % (36.0-47.0) L 01/09/22 05:12 MCV 88.6 fL (80.0-100.0) 01/09/22 05:12 MCH 30.4 pg (27.0-34.0) 01/09/22 05:12 MCHC 34.3 g/dL (33.0-35.0) 01/09/22 05:12 RDW 15.0 % (11.6-16.5) 01/09/22 05:12 Plt Count 359 X10^3/uL (150.0-450.0) 01/09/22 05:12 MPV 7.3 fL (7.4-11.0) L 01/09/22 05:12 Neut % (Auto) 54.9 % (42.0-75.0) 01/09/22 05:12 Lymph % (Auto) 29.4 % (21.0-51.0) 01/09/22 05:12 [place] % (Auto) 10.2 % (0.0-13.0) 01/09/22 05:12 Eos % (Auto) 5.0 % (0.9-2.9) H 01/09/22 05:12 Baso % (Auto) 0.5 % (0.2-1.0) 01/09/22 05:12 Neut # (Auto) 2.8 x10^3/uL (2.2-4.8) 01/09/22 05:12 Lymph # (Auto) 1.5 X10^3/uL (1.3-2.9) 01/09/22 05:12 [place] # (Auto) 0.5 x10^3/uL (0.3-0.8) 01/09/22 05:12 Eos # (Auto) 0.3 x10^3/uL (0.0-0.2) H 01/09/22 05:12 Baso # (Auto) 0.0 X10^3/uL (0.0-0.1) 01/09/22 05:12 Absolute Nucleated RBC 0.0 /100WBC 01/09/22 05:12 PT 14.9 SECONDS (11.8-14.3) 01/05/22 19:35 INR Target Range - 01/05/22 19:35 INR 1.21 (0.8-1.3) 01/05/22 19:35 APTT 33.8 SECONDS (22.9-36.5) 01/05/22 19:35 PTT Comment - 01/05/22 19:35 Sodium 140 mmol/L (136-145) 01/09/22 05:12 Corrected Sodium TNP 01/09/22 05:12 Potassium 4.6 mmol/L (3.5-5.1) 01/09/22 05:12 Chloride 103 mmol/L (98-107) 01/09/22 05:12 Carbon Dioxide 30.3 mmol/L (21-32) 01/09/22 05:12 BUN 7 mg/dL (7-18) 01/09/22 05:12 Creatinine 1.05 mg/dL (0.55-1.02) H 01/09/22 05:12 Est GFR (MDRD) Af Amer > 60 (>60) 01/09/22 05:12 Est GFR (MDRD) Non-Af 55 (>60) L 01/09/22 05:12 Glucose 91 mg/dL (65-99) 01/09/22 05:12 Calcium 8.9 mg/dL (8.5-10.1) 01/09/22 05:12 Corrected Calcium 9.5 mg/dL (8.5-10.1) 01/09/22 05:12 Magnesium 1.8 mg/dL (1.7-2.9) 01/06/22 05:25 Total Bilirubin 0.40 mg/dL (0.2-1.0) 01/09/22 05:12 AST 25 Units/L (15-37) 01/09/22 05:12 ALT 17 Units/L (12-78) 01/09/22 05:12 Alkaline Phosphatase 124 Units/L (46-116) H 01/09/22 05:12 Creatine Kinase 142 Units/L (26-192) 01/06/22 10:37 CK-MB (CK-2) 2.9 ng/mL (0-4.0) 01/06/22 10:37 CK/CKMB % Calc 2.0 % (<4) 01/06/22 10:37 Troponin I High Sens 40.9 ng/L (4.0-60.0) 01/06/22 10:37 B-Natriuretic Peptide 502 pg/mL (0-79) H* 01/08/22 05:40 Total Protein 6.9 g/dL (6.4-8.2) 01/09/22 05:12 Albumin 3.3 g/dL (3.4-5.0) L 01/09/22 05:12 Globulin 3.6 g/dL (2.5-4.5) 01/09/22 05:12 Albumin/Globulin Ratio 0.9 Ratio (1.1-2.1) L 01/09/22 05:12 Triglycerides 93 mg/dL (0-150) 01/06/22 05:25 Cholesterol 178 mg/dL (0-200) 01/06/22 05:25 LDL Cholesterol, Calc 105 mg/dL (0-100) H 01/06/22 05:25 HDL Cholesterol 54 mg/dL (40-60) 01/06/22 05:25 Cholesterol/HDL Ratio 3.3 (0.0-5.0) 01/06/22 05:25 Specimen Type Clean catch urine 01/05/22 19:19 Urine Color Yellow (YELLOW) 01/05/22 19:19 Urine Appearance Clear (CLEAR) 01/05/22 19:19 Urine pH 5.0 (5.0 - 8.0) 01/05/22 19:19 Ur Specific [place] 1.015 (1.000-1.030) 01/05/22 19:19 Urine Protein Negative (NEGATIVE) 01/05/22 19:19 Urine Glucose (UA) Negative (NEGATIVE) 01/05/22 19:19 Urine Ketones Negative (NEGATIVE) 01/05/22 19:19 Urine Blood 2+ (NEGATIVE) 01/05/22 19:19 Urine Nitrite Negative (NEGATIVE) 01/05/22 19:19 Urine Bilirubin Negative (NEGATIVE) 01/05/22 19:19 Urine Urobilinogen Normal (NORMAL) 01/05/22 19:19 Ur Leukocyte Esterase Negative (NEGATIVE) 01/05/22 19:19 Urine RBC 3-5 /HPF (0-3) A 01/05/22 19:19 Urine WBC 3-5 /HPF (0-5) 01/05/22 19:19 Ur Squamous Epith Cells Few /HPF (NEGATIVE) 01/05/22 19:19 Urine Bacteria Negative /HPF (NEGATIVE) 01/05/22 19:19 Hyaline Casts Few /LPF (NEGATIVE) 01/05/22 19:19 Ur Culture Indicated? No/not indicated 01/05/22 19:19 Stool H. pylori Ag Negative (NEGATIVE) 01/06/22 15:29 SARS-CoV-2 (PCR) Negative (NEGATIVE) 01/05/22 22:53 - Plan (1) Epigastric pain Status: Acute Plan: NORMAL SALINE AT KVO, THE POTASSIUM AND MAGNESIUM PROTOCOLS, PEPCID 20MG PO DAILY, PROTONIX 40MG IV BID, PERCOCET 5/325MG 2 TAB Q6H PRN, ROXICODONE 15MG PO Q6H PRN, OXYCONTIN CR 20MG PO BID, TORADOL 15MG IV Q8H, FLEXERIL 10MG PO TID, COLACE 100MG PO TID, CYMBALTA 60MG PO BID, XOPENEX NEBS TID PRN, SYNTHROID 50MCG PO DAILY, CLARITIN 10MG PO DAILY, REMERON 30G PO HS. (2) Lumbar pain with radiation down both legs Status: Acute Plan: OBTAIN LUMBAR SPINE CT (3) SOB (shortness of breath) Status: Acute (4) Elevated troponin Status: Resolved Plan: ADMIT, SERIAL CARDIAC ENZYMES AND EKGS, NORMAL SALINE AT KVO, THE POTASSIUM AND MAGNESIUM PROTOCOLS, PEPCID 20MG IV BID, PROTONIX 40MG IV BID, PERCOCET 5/325MG 2 TAB Q6H PRN, ROXICODONE 15MG PO TID, FLEXERIL 10MG PO TID, COLACE 100MG PO TID, CYMBALTA 60MG PO BID, XOPENEX NEBS TID PRN, SYNTHROID 50MCG PO DAILY, CLARITIN 10MG PO DAILY, REMERON 30G PO HS. (5) GERD (gastroesophageal reflux disease) Status: Chronic Qualifiers: Esophagitis presence: esophagitis presence not specified Qualified Code(s): K21.9 - Gastro-esophageal reflux disease without esophagitis (6) HTN (hypertension) Status: Chronic Qualifiers: Hypertension type: primary hypertension Qualified Code(s): I10 - Essential (primary) hypertension
[2022-01-09] MEDS: NS 1,000 ML IV 1,000 ML IV SCH ×2 (19:21→19:22)
[2022-01-09] MEDS: REMERON PO SCH (21:02)
[2022-01-10] MEDS: ROXICODONE TAB 15 MG PO PRN ×4 (01:39→22:20)
[2022-01-10] MEDS: TORADOL 15 MG VIAL IVP SCH ×2 (01:44→12:08)
[2022-01-10] MEDS: FLEXERIL TAB 10 MG PO SCH ×3 (05:00→20:59)
[2022-01-10] MEDS: COLACE CAP 100 MG PO SCH ×3 (05:00→21:00)
[2022-01-10 05:15] LABS: BASOPHILS % (AUTO) 0.8 % (0.2-1.0); EOSINOPHILS # (AUTO) 0.3 x10^3/uL (0.0-0.2); EOSINOPHILS % (AUTO) 4.6 % (0.9-2.9); HEMATOCRIT 25.2 % (36.0-47.0); HEMOGLOBIN 8.8 g/dL (12.0-16.0); LYMPHOCYTES # (AUTO) 1.2 X10^3/uL (1.3-2.9); LYMPHOCYTES % (AUTO) 21.7 % (21.0-51.0); MEAN CORPUSCULAR HEMOGLOBIN 31.3 pg (27.0-34.0); MEAN CORPUSCULAR HGB CONC 35.1 g/dL (33.0-35.0); MEAN CORPUSCULAR VOLUME 89.2 fL (80.0-100.0); MEAN PLATELET VOLUME 7.3 fL (7.4-11.0); MONOCYTES # (AUTO) 0.6 x10^3/uL (0.3-0.8); MONOCYTES % (AUTO) 10.8 % (0.0-13.0); NEUTROPHILS # (AUTO) 3.5 x10^3/uL (2.2-4.8); NEUTROPHILS % (AUTO) 62.1 % (42.0-75.0); RED BLOOD COUNT 2.83 X10^6/uL (3.5-5.4); RED CELL DISTRIBUTION WIDTH 15.3 % (11.6-16.5); WHITE BLOOD COUNT 5.7 X10^3/uL (3.6-10.0)
[2022-01-10 05:18] LABS: ALANINE AMINOTRANSFERASE 13 Units/L (12-78); ALBUMIN 2.9 g/dL (3.4-5.0); ALKALINE PHOSPHATASE 103 Units/L (46-116); ASPARTATE AMINO TRANSFERASE 20 Units/L (15-37); BLOOD UREA NITROGEN 9 mg/dL (7-18); CALCIUM 8.3 mg/dL (8.5-10.1); CHLORIDE 104 mmol/L (98-107); COR CA(FOR HYPOALB) 9.2 mg/dL (8.5-10.1); CREATININE 1.08 mg/dL (0.55-1.02); SODIUM 139 mmol/L (136-145); TOTAL PROTEIN 5.9 g/dL (6.4-8.2); eGFR NON BLACK RACES 53 (>60)
[2022-01-10] MEDS ORDERED: ZOLOFT ONE (07:37)
[2022-01-10] MEDS: PROTONIX INJ 40 MG VIAL IVP SCH ×2 (09:20→20:56)
[2022-01-10] MEDS: CLARITIN PO SCH (09:25)
[2022-01-10] MEDS: ZOFRAN INJ 4 MG VIAL IVP PRN (09:25)
[2022-01-10] MEDS: SYNTHROID 50 mcg TAB PO SCH (09:26)
[2022-01-10] MEDS: PEPCID TAB 20 MG PO SCH (09:26)
[2022-01-10] MEDS: CYMBALTA PO SCH ×2 (09:27→20:56)
[2022-01-10] MEDS: ZESTRIL TAB 10 MG PO SCH (09:27)
[2022-01-10] MEDS: ELIQUIS PO SCH ×2 (09:28→20:57)
[2022-01-10] MEDS: ZOLOFT PO SCH (09:28)
[2022-01-10] MEDS: TOPROL XL PO SCH (09:32)
[2022-01-10] MEDS: LASIX PO SCH (09:32)
--- NOTE | 2022-01-10 10:53 | PCM.PROG ---
Progress Note Progress Note for Day of Date of Exam: 01/10/22 Subjective Subjective: PT IS A 71 YEAR OLD WHITE FEMALE WHO WAS ADMITTED OBSERVATION STATUS FOR TREATMENT OF EPIGASTRIC PAIN AND INTRACTABLE LUMBAR PAIN WITH RADIATION TO BOTH LEGS. SHE HAD AN EGD ABOUT A WEEK AND A HALF AGO WHICH REPORTEDLY REVEALED MODERATE GASTRITIS AND ESOPHAGITIS. SHE WAS FOUND TO HAVE COMPRESSION FRACTURE OF T10. LUMBAR CT REVEALED: Recent 35 percent compression fracture of T10 is probably osteoporotic compression fracture. Lumbar compression fractures appear unchanged since prior study. LABS/IMAGING: WBC 5.7, HGB 8.8, PLT 282, NA 139, K 4.8, CREATININE 1.08, GLUCOSE 96. FOLLOWING D ISCHARGE, SHE WILL NEED A REFERRAL TO [facility]. SHE IS CURRENTLY RECEIVING: NORMAL SALINE AT [facility], THE POTASSIUM AND MAGNESIUM PROTOCOLS, PEPCID 20MG PO DAILY, PROTONIX 40MG IV BID, FLEXERIL 10MG PO TID, COLACE 100MG PO TID, CYMBALTA 60MG PO BID, XOPENEX NEBS TID PRN, SYNTHROID 50MCG PO DAILY, CLARITIN 10MG PO DAILY, REMERON 30G PO HS. TO MANAGE HER PAIN SYMPTOMS, SHE WAS STARTED ON OXYCONTIN CR 20MG PO Q12H, INCREASE ROXICODONE TO 15MG PO Q6H PRN, AND TORADOL 15MG IV Q8H. SHE IS DOING WELL WITH CURRENT REGIMEN. OTHERWISE, WE PLAN TO FOLLOW-UP WITH AM LABS AND CONTINUE TO MONITOR. Past Medical Family Social History Past Med/Fam/Surg Hx: No changes since H&P Allergies: Allergies bupropion [From Wellbutrin] Allergy (Verified 01/05/22 18:45) codeine Allergy (Verified 01/05/22 18:45) diltiazem [From Cardizem] Allergy (Verified 01/05/22 18:45) gabapentin Allergy (Verified 01/05/22 18:45) ketorolac [From Toradol] Allergy (Verified 01/09/22 10:37) meloxicam [From Mobic] Allergy (Verified 01/05/22 18:45) morphine Allergy (Verified 01/05/22 18:45) pregabalin [From Lyrica] Allergy (Verified 01/05/22 18:45) Qydcwra-JZQ-KnH Reductase Inhibitor Allergy (Verified 01/05/22 18:45) trazodone Allergy (Verified 01/05/22 18:45) Review of Systems ROS: No change since H&P Vital Signs and I&O's Vital Signs: Temperature 98.1 F Pulse Rate [Left Brachial] 71 Pulse Rate 67 Respiratory Rate 18 Blood Pressure [Left Arm] 146/49 Blood Pressure 138/64 O2 Sat by Pulse Oximetry 94 Intake and Output: Intake & Output 01/07/22 01/08/22 01/09/22 01/10/22 23:59 23:59 23:59 23:59 Intake Total 2245 / 2245 1719 / 1719 1559 / 1559 600 / 600 Balance 2245 / 2245 1719 / 1719 1559 / 1559 600 / 600 Physical Exam Oriented: Normal Eyes: Normal Ear: Normal Nose: Normal Throat: Normal Respiratory: Generalized and Diminished Cardiovascular: Normal : Normal Auscultation: Bowel Sounds: Normal Tenderness: Diffuse and Moderate Skin: Normal Musculoskeletal: Back:Thoracic, Back:Lumbar and Tender Psychiatric: Normal Mood Description: Calm Affect: Normal Speech Pattern: Clear and Appropriate Laboratory and Diagnostics Result Diagrams: 01/10/22 04:24 01/10/22 04:24 Labs: Laboratory WBC 5.7 X10^3/uL (3.6-10.0) 01/10/22 04:24 RBC 2.83 X10^6/uL (3.5-5.4) L 01/10/22 04:24 Hgb 8.8 g/dL (12.0-16.0) L 01/10/22 04:24 Hct 25.2 % (36.0-47.0) L 01/10/22 04:24 MCV 89.2 fL (80.0-100.0) 01/10/22 04:24 MCH 31.3 pg (27.0-34.0) 01/10/22 04:24 MCHC 35.1 g/dL (33.0-35.0) H 01/10/22 04:24 RDW 15.3 % (11.6-16.5) 01/10/22 04:24 Plt Count 282 X10^3/uL (150.0-450.0) 01/10/22 04:24 MPV 7.3 fL (7.4-11.0) L 01/10/22 04:24 Neut % (Auto) 62.1 % (42.0-75.0) 01/10/22 04:24 Lymph % (Auto) 21.7 % (21.0-51.0) 01/10/22 04:24 [place] % (Auto) 10.8 % (0.0-13.0) 01/10/22 04:24 Eos % (Auto) 4.6 % (0.9-2.9) H 01/10/22 04:24 Baso % (Auto) 0.8 % (0.2-1.0) 01/10/22 04:24 Neut # (Auto) 3.5 x10^3/uL (2.2-4.8) 01/10/22 04:24 Lymph # (Auto) 1.2 X10^3/uL (1.3-2.9) L 01/10/22 04:24 [place] # (Auto) 0.6 x10^3/uL (0.3-0.8) 01/10/22 04:24 Eos # (Auto) 0.3 x10^3/uL (0.0-0.2) H 01/10/22 04:24 Baso # (Auto) 0.0 X10^3/uL (0.0-0.1) 01/10/22 04:24 Absolute Nucleated RBC 0.0 /100WBC 01/10/22 04:24 PT 14.9 SECONDS (11.8-14.3) 01/05/22 19:35 INR Target Range - 01/05/22 19:35 INR 1.21 (0.8-1.3) 01/05/22 19:35 APTT 33.8 SECONDS (22.9-36.5) 01/05/22 19:35 PTT Comment - 01/05/22 19:35 Sodium 139 mmol/L (136-145) 01/10/22 04:24 Corrected Sodium TNP 01/10/22 04:24 Potassium 4.8 mmol/L (3.5-5.1) 01/10/22 04:24 Chloride 104 mmol/L (98-107) 01/10/22 04:24 Carbon Dioxide 30.0 mmol/L (21-32) 01/10/22 04:24 BUN 9 mg/dL (7-18) 01/10/22 04:24 Creatinine 1.08 mg/dL (0.55-1.02) H 01/10/22 04:24 Est GFR (MDRD) Af Amer > 60 (>60) 01/10/22 04:24 Est GFR (MDRD) Non-Af 53 (>60) L 01/10/22 04:24 Glucose 96 mg/dL (65-99) 01/10/22 04:24 Calcium 8.3 mg/dL (8.5-10.1) L 01/10/22 04:24 Corrected Calcium 9.2 mg/dL (8.5-10.1) 01/10/22 04:24 Magnesium 1.8 mg/dL (1.7-2.9) 01/06/22 05:25 Total Bilirubin 0.20 mg/dL (0.2-1.0) 01/10/22 04:24 AST 20 Units/L (15-37) 01/10/22 04:24 ALT 13 Units/L (12-78) 01/10/22 04:24 Alkaline Phosphatase 103 Units/L (46-116) 01/10/22 04:24 Creatine Kinase 142 Units/L (26-192) 01/06/22 10:37 CK-MB (CK-2) 2.9 ng/mL (0-4.0) 01/06/22 10:37 CK/CKMB % Calc 2.0 % (<4) 01/06/22 10:37 Troponin I High Sens 40.9 ng/L (4.0-60.0) 01/06/22 10:37 B-Natriuretic Peptide 502 pg/mL (0-79) H* 01/08/22 05:40 Total Protein 5.9 g/dL (6.4-8.2) L 01/10/22 04:24 Albumin 2.9 g/dL (3.4-5.0) L 01/10/22 04:24 Globulin 3.0 g/dL (2.5-4.5) 01/10/22 04:24 Albumin/Globulin Ratio 1.0 Ratio (1.1-2.1) L 01/10/22 04:24 Triglycerides 93 mg/dL (0-150) 01/06/22 05:25 Cholesterol 178 mg/dL (0-200) 01/06/22 05:25 LDL Cholesterol, Calc 105 mg/dL (0-100) H 01/06/22 05:25 HDL Cholesterol 54 mg/dL (40-60) 01/06/22 05:25 Cholesterol/HDL Ratio 3.3 (0.0-5.0) 01/06/22 05:25 Specimen Type Clean catch urine 01/05/22 19:19 Urine Color Yellow (YELLOW) 01/05/22 19:19 Urine Appearance Clear (CLEAR) 01/05/22 19:19 Urine pH 5.0 (5.0 - 8.0) 01/05/22 19:19 Ur Specific [place] 1.015 (1.000-1.030) 01/05/22 19:19 Urine Protein Negative (NEGATIVE) 01/05/22 19:19 Urine Glucose (UA) Negative (NEGATIVE) 01/05/22 19:19 Urine Ketones Negative (NEGATIVE) 01/05/22 19:19 Urine Blood 2+ (NEGATIVE) 01/05/22 19:19 Urine Nitrite Negative (NEGATIVE) 01/05/22 19:19 Urine Bilirubin Negative (NEGATIVE) 01/05/22 19:19 Urine Urobilinogen Normal (NORMAL) 01/05/22 19:19 Ur Leukocyte Esterase Negative (NEGATIVE) 01/05/22 19:19 Urine RBC 3-5 /HPF (0-3) A 01/05/22 19:19 Urine WBC 3-5 /HPF (0-5) 01/05/22 19:19 Ur Squamous Epith Cells Few /HPF (NEGATIVE) 01/05/22 19:19 Urine Bacteria Negative /HPF (NEGATIVE) 01/05/22 19:19 Hyaline Casts Few /LPF (NEGATIVE) 01/05/22 19:19 Ur Culture Indicated? No/not indicated 01/05/22 19:19 Stool H. pylori Ag Negative (NEGATIVE) 01/06/22 15:29 SARS-CoV-2 (PCR) Negative (NEGATIVE) 01/05/22 22:53 Plan (1) Epigastric pain: Status: Acute Plan: NORMAL SALINE AT [facility], THE POTASSIUM AND MAGNESIUM PROTOCOLS, PEPCID 20MG PO DAILY, PROTONIX 40MG IV BID, PERCOCET 5/325MG 2 TAB Q6H PRN, ROXICODONE 15MG PO Q6H PRN, OXYCONTIN CR 20MG PO BID, TORADOL 15MG IV Q8H, FLEXERIL 10MG PO TID, COLACE 100MG PO TID, CYMBALTA 60MG PO BID, XOPENEX NEBS TID PRN, SYNTHROID 50MCG PO DAILY, CLARITIN 10MG PO DAILY, REMERON 30G PO HS. (2) Lumbar pain with radiation down both legs: Status: Acute Plan: OBTAIN LUMBAR SPINE CT (3) SOB (shortness of breath): Status: Acute (4) Elevated troponin: Status: Resolved Plan: ADMIT, SERIAL CARDIAC ENZYMES AND EKGS, NORMAL SALINE AT [facility], THE POTASSIUM AND MAGNESIUM PROTOCOLS, PEPCID 20MG IV BID, PROTONIX 40MG IV BID, PERCOCET 5/325MG 2 TAB Q6H PRN, ROXICODONE 15MG PO TID, FLEXERIL 10MG PO TID, COLACE 100MG PO TID, CYMBALTA 60MG PO BID, XOPENEX NEBS TID PRN, SYNTHROID 50MCG PO DAILY, CLARITIN 10MG PO DAILY, REMERON 30G PO HS. (5) GERD (gastroesophageal reflux disease): Status: Chronic Qualifiers: Esophagitis presence: esophagitis presence not specified Qualified Code(s): K21.9 - Gastro-esophageal reflux disease without esophagitis (6) HTN (hypertension): Status: Chronic Qualifiers: Hypertension type: primary hypertension Qualified Code(s): I10 - Esse ntial (primary) hypertension
[2022-01-10] MEDS: OXYCONTIN 20 MG PO SCH ×2 (12:09→20:56)
[2022-01-10] MEDS: NS 1,000 ML IV 1,000 ML IV SCH (20:58)
[2022-01-10] MEDS: REMERON PO SCH (20:58)
[2022-01-11] MEDS: TORADOL 15 MG VIAL IVP SCH ×3 (02:56→11:22)
[2022-01-11] MEDS: FLEXERIL TAB 10 MG PO SCH ×3 (05:23→21:56)
[2022-01-11] MEDS: COLACE CAP 100 MG PO SCH ×3 (05:23→21:56)
[2022-01-11 05:28] LABS: BASOPHILS % (AUTO) 0.5 % (0.2-1.0); EOSINOPHILS # (AUTO) 0.2 x10^3/uL (0.0-0.2); EOSINOPHILS % (AUTO) 4.5 % (0.9-2.9); HEMOGLOBIN 8.7 g/dL (12.0-16.0); LYMPHOCYTES # (AUTO) 1.2 X10^3/uL (1.3-2.9); LYMPHOCYTES % (AUTO) 24.9 % (21.0-51.0); MEAN CORPUSCULAR HEMOGLOBIN 30.6 pg (27.0-34.0); MEAN CORPUSCULAR HGB CONC 34.8 g/dL (33.0-35.0); MEAN PLATELET VOLUME 7.5 fL (7.4-11.0); MONOCYTES # (AUTO) 0.6 x10^3/uL (0.3-0.8); MONOCYTES % (AUTO) 12.7 % (0.0-13.0); NEUTROPHILS # (AUTO) 2.8 x10^3/uL (2.2-4.8); NEUTROPHILS % (AUTO) 57.4 % (42.0-75.0); RED BLOOD COUNT 2.83 X10^6/uL (3.5-5.4); RED CELL DISTRIBUTION WIDTH 14.9 % (11.6-16.5); WHITE BLOOD COUNT 4.9 X10^3/uL (3.6-10.0)
[2022-01-11 05:36] LABS: ALANINE AMINOTRANSFERASE 13 Units/L (12-78); ALBUMIN 2.9 g/dL (3.4-5.0); ALKALINE PHOSPHATASE 103 Units/L (46-116); ASPARTATE AMINO TRANSFERASE 22 Units/L (15-37); BLOOD UREA NITROGEN 12 mg/dL (7-18); CALCIUM 8.7 mg/dL (8.5-10.1); CARBON DIOXIDE 30.4 mmol/L (21-32); CHLORIDE 103 mmol/L (98-107); COR CA(FOR HYPOALB) 9.6 mg/dL (8.5-10.1); CREATININE 1.11 mg/dL (0.55-1.02); SODIUM 140 mmol/L (136-145); eGFR NON BLACK RACES 51 (>60)
[2022-01-11] MEDS ORDERED: ZOLOFT ONE (07:54)
[2022-01-11] MEDS: PROTONIX INJ 40 MG VIAL IVP SCH ×2 (08:02→20:40)
[2022-01-11] MEDS: ZOLOFT PO SCH (08:03)
[2022-01-11] MEDS: TOPROL XL PO SCH (08:03)
[2022-01-11] MEDS: ELIQUIS PO SCH ×2 (08:03→20:39)
[2022-01-11] MEDS: ROXICODONE TAB 15 MG PO PRN ×3 (08:03→23:44)
[2022-01-11] MEDS: ZOFRAN INJ 4 MG VIAL IVP PRN (08:04)
[2022-01-11] MEDS: CLARITIN PO SCH (08:04)
[2022-01-11] MEDS: SYNTHROID 50 mcg TAB PO SCH (08:05)
[2022-01-11] MEDS: ZESTRIL TAB 10 MG PO SCH (08:05)
[2022-01-11] MEDS: CYMBALTA PO SCH ×2 (08:05→20:39)
[2022-01-11] MEDS: PEPCID TAB 20 MG PO SCH (08:07)
[2022-01-11] MEDS: LASIX PO SCH (08:07)
[2022-01-11] MEDS: NS 1,000 ML IV 1,000 ML IV SCH ×3 (10:47→23:43)
--- NOTE | 2022-01-11 11:17 | PCM.PROG ---
Progress Note Progress Note for Day of Date of Exam: 01/11/22 Subjective Subjective: PT IS A 71 YEAR OLD WHITE FEMALE WHO WAS ADMITTED OBSERVATION STATUS FOR TREATMENT OF EPIGASTRIC PAIN AND INTRACTABLE LUMBAR PAIN WITH RADIATION TO BOTH LEGS. SHE HAD AN EGD ABOUT A WEEK AND A HALF AGO WHICH REPORTEDLY REVEALED MODERATE GASTRITIS AND ESOPHAGITIS. SHE WAS FOUND TO HAVE COMPRESSION FRACTURE OF T10. THIS MORNING SHE IS RESTING COMFORTABLY IN BED. NO ACUTE EVENTS OVERNIGHT. LUMBAR CT REVEALED: Recent 35 percent compression fracture of T10 is probably osteoporotic compression fracture. Lumbar compression fractures appear unchanged since prior study. LABS/IMAGING: WBC 4.9, HGB 8.7, PLT 272, NA 140, K 4.0, CREATININE 1.11, GLUCOSE 89. FOLLOWING DISCHARGE, SHE WILL NEED A REFERRAL TO [facility]. SHE IS CURRENTLY RECEIVING: NORMAL SALINE AT [facility], THE POTASSIUM AND MAGNESIUM PROTOCOLS, PEPCID 20MG PO DAILY, PROTONIX 40MG IV BID, FLEXERIL 10MG PO TID, COLACE 100MG PO TID, CYMBALTA 60MG PO BID, XOPENEX NEBS TID PRN, SYNTHROID 50MCG PO DAILY, CLARITIN 10MG PO DAILY, REMERON 30G PO HS. TO MANAGE HER PAIN SYMPTOMS, SHE IS CURRENTLY ON OXYCONTIN CR 20MG PO Q12H, ROXICODONE 15MG PO Q6H PRN, AND TORADOL 15MG IV Q8H. SHE IS DOING WELL WITH CURRENT REGIMEN. OTHERWISE, WE PLAN TO FOLLOW-UP WITH AM LABS AND CONTINUE TO MONITOR. Past Medical Family Social History Past Med/Fam/Surg Hx: No changes since H&P Allergies: Allergies bupropion [From Wellbutrin] Allergy (Verified 01/05/22 18:45) codeine Allergy (Verified 01/05/22 18:45) diltiazem [From Cardizem] Allergy (Verified 01/05/22 18:45) gabapentin Allergy (Verified 01/05/22 18:45) ketorolac [From Toradol] Allergy (Verified 01/09/22 10:37) meloxicam [From Mobic] Allergy (Verified 01/05/22 18:45) morphine Allergy (Verified 01/05/22 18:45) pregabalin [From Lyrica] Allergy (Verified 01/05/22 18:45) Rrwjkoy-GZU-GhY Reductase Inhibitor Allergy (Verified 01/05/22 18:45) trazodone Allergy (Verified 01/05/22 18:45) Review of Systems ROS: No change since H&P Vital Signs and I&O's Vital Signs: Temperature 98 F Pulse Rate [Right Brachial] 75 Pulse Rate [Left Brachial] 59 Pulse Rate 67 Respiratory Rate 18 Blood Pressure [Right Arm] 154/69 Blood Pressure [Left Arm] 123/64 Blood Pressure 138/64 O2 Sat by Pulse Oximetry 93 Intake and Output: Intake & Output 01/08/22 01/09/22 01/10/22 01/11/22 23:59 23:59 23:59 23:59 Intake Total 1719 / 1719 1559 / 1559 1800 / 1800 1100 / 1100 Balance 1719 / 1719 1559 / 1559 1800 / 1800 1100 / 1100 Physical Exam Oriented: Normal Eyes: Normal Ear: Normal Nose: Normal Throat: Normal Respiratory: Generalized and Diminished Cardiovascular: Normal : Normal Auscultation: Bowel Sounds: Normal Tenderness: Diffuse and Moderate Skin: Normal Musculoskeletal: Back:Thoracic, Back:Lumbar and Tender Psychiatric: Normal Mood Description: Calm Affect: Normal Speech Pattern: Clear and Appropriate Laboratory and Diagnostics Result Diagrams: 01/11/22 04:30 01/11/22 04:30 Labs: Laboratory WBC 4.9 X10^3/uL (3.6-10.0) 01/11/22 04:30 RBC 2.83 X10^6/uL (3.5-5.4) L 01/11/22 04:30 Hgb 8.7 g/dL (12.0-16.0) L 01/11/22 04:30 Hct 25.0 % (36.0-47.0) L 01/11/22 04:30 MCV 88.0 fL (80.0-100.0) 01/11/22 04:30 MCH 30.6 pg (27.0-34.0) 01/11/22 04:30 MCHC 34.8 g/dL (33.0-35.0) 01/11/22 04:30 RDW 14.9 % (11.6-16.5) 01/11/22 04:30 Plt Count 272 X10^3/uL (150.0-450.0) 01/11/22 04:30 MPV 7.5 fL (7.4-11.0) 01/11/22 04:30 Neut % (Auto) 57.4 % (42.0-75.0) 01/11/22 04:30 Lymph % (Auto) 24.9 % (21.0-51.0) 01/11/22 04:30 [place] % (Auto) 12.7 % (0.0-13.0) 01/11/22 04:30 Eos % (Auto) 4.5 % (0.9-2.9) H 01/11/22 04:30 Baso % (Auto) 0.5 % (0.2-1.0) 01/11/22 04:30 Neut # (Auto) 2.8 x10^3/uL (2.2-4.8) 01/11/22 04:30 Lymph # (Auto) 1.2 X10^3/uL (1.3-2.9) L 01/11/22 04:30 [place] # (Auto) 0.6 x10^3/uL (0.3-0.8) 01/11/22 04:30 Eos # (Auto) 0.2 x10^3/uL (0.0-0.2) 01/11/22 04:30 Baso # (Auto) 0.0 X10^3/uL (0.0-0.1) 01/11/22 04:30 Absolute Nucleated RBC 0.0 /100WBC 01/11/22 04:30 PT 14.9 SECONDS (11.8-14.3) 01/05/22 19:35 INR Target Range - 01/05/22 19:35 INR 1.21 (0.8-1.3) 01/05/22 19:35 APTT 33.8 SECONDS (22.9-36.5) 01/05/22 19:35 PTT Comment - 01/05/22 19:35 Sodium 140 mmol/L (136-145) 01/11/22 04:30 Corrected Sodium TNP 01/11/22 04:30 Potassium 4.0 mmol/L (3.5-5.1) 01/11/22 04:30 Chloride 103 mmol/L (98-107) 01/11/22 04:30 Carbon Dioxide 30.4 mmol/L (21-32) 01/11/22 04:30 BUN 12 mg/dL (7-18) 01/11/22 04:30 Creatinine 1.11 mg/dL (0.55-1.02) H 01/11/22 04:30 Est GFR (MDRD) Af Amer > 60 (>60) 01/11/22 04:30 Est GFR (MDRD) Non-Af 51 (>60) L 01/11/22 04:30 Glucose 89 mg/dL (65-99) 01/11/22 04:30 Calcium 8.7 mg/dL (8.5-10.1) 01/11/22 04:30 Corrected Calcium 9.6 mg/dL (8.5-10.1) 01/11/22 04:30 Magnesium 1.8 mg/dL (1.7-2.9) 01/06/22 05:25 Total Bilirubin 0.30 mg/dL (0.2-1.0) 01/11/22 04:30 AST 22 Units/L (15-37) 01/11/22 04:30 ALT 13 Units/L (12-78) 01/11/22 04:30 Alkaline Phosphatase 103 Units/L (46-116) 01/11/22 04:30 Creatine Kinase 142 Units/L (26-192) 01/06/22 10:37 CK-MB (CK-2) 2.9 ng/mL (0-4.0) 01/06/22 10:37 CK/CKMB % Calc 2.0 % (<4) 01/06/22 10:37 Troponin I High Sens 40.9 ng/L (4.0-60.0) 01/06/22 10:37 B-Natriuretic Peptide 502 pg/mL (0-79) H* 01/08/22 05:40 Total Protein 6.0 g/dL (6.4-8.2) L 01/11/22 04:30 Albumin 2.9 g/dL (3.4-5.0) L 01/11/22 04:30 Globulin 3.1 g/dL (2.5-4.5) 01/11/22 04:30 Albumin/Globulin Ratio 0.9 Ratio (1.1-2.1) L 01/11/22 04:30 Triglycerides 93 mg/dL (0-150) 01/06/22 05:25 Cholesterol 178 mg/dL (0-200) 01/06/22 05:25 LDL Cholesterol, Calc 105 mg/dL (0-100) H 01/06/22 05:25 HDL Cholesterol 54 mg/dL (40-60) 01/06/22 05:25 Cholesterol/HDL Ratio 3.3 (0.0-5.0) 01/06/22 05:25 Specimen Type Clean catch urine 01/05/22 19:19 Urine Color Yellow (YELLOW) 01/05/22 19:19 Urine Appearance Clear (CLEAR) 01/05/22 19:19 Urine pH 5.0 (5.0 - 8.0) 01/05/22 19:19 Ur Specific [place] 1.015 (1.000-1.030) 01/05/22 19:19 Urine Protein Negative (NEGATIVE) 01/05/22 19:19 Urine Glucose (UA) Negative (NEGATIVE) 01/05/22 19:19 Urine Ketones Negative (NEGATIVE) 01/05/22 19:19 Urine Blood 2+ (NEGATIVE) 01/05/22 19:19 Urine Nitrite Negative (NEGATIVE) 01/05/22 19:19 Urine Bilirubin Negative (NEGATIVE) 01/05/22 19:19 Urine Urobilinogen Normal (NORMAL) 01/05/22 19:19 Ur Leukocyte Esterase Negative (NEGATIVE) 01/05/22 19:19 Urine RBC 3-5 /HPF (0-3) A 01/05/22 19:19 Urine WBC 3-5 /HPF (0-5) 01/05/22 19:19 Ur Squamous Epith Cells Few /HPF (NEGATIVE) 01/05/22 19:19 Urine Bacteria Negative /HPF (NEGATIVE) 01/05/22 19:19 Hyaline Casts Few /LPF (NEGATIVE) 01/05/22 19:19 Ur Culture Indicated? No/not indicated 01/05/22 19:19 Stool H. pylori Ag Negative (NEGATIVE) 01/06/22 15:29 SARS-CoV-2 (PCR) Negative (NEGATIVE) 01/05/22 22:53 Plan (1) Epigastric pain: Status: Acute Plan: NORMAL SALINE AT [facility], THE POTASSIUM AND MAGNESIUM PROTOCOLS, PEPCID 20MG PO DAILY, PROTONIX 40MG IV BID, PERCOCET 5/325MG 2 TAB Q6H PRN, ROXICODONE 15MG PO Q6H PRN, OXYCONTIN CR 20MG PO BID, TORADOL 15MG IV Q8H, FLEXERIL 10MG PO TID, COLACE 100MG PO TID, CYMBALTA 60MG PO BID, XOPENEX NEBS TID PRN, SYNTHROID 50MCG PO DAILY, CLARITIN 10MG PO DAILY, REMERON 30G PO HS. (2) Lumbar pain with radiation down both legs: Status: Acute Plan: OBTAIN LUMBAR SPINE CT (3) SOB (shortness of breath): Status: Acute (4) Elevated troponin: Status: Resolved Plan: ADMIT, SERIAL CARDIAC ENZYMES AND EKGS, NORMAL SALINE AT [facility], THE POTASSIUM AND MAGNESIUM PROTOCOLS, PEPCID 20MG IV BID, PROTONIX 40MG IV BID, PERCOCET 5/325MG 2 TAB Q6H PRN, ROXICODONE 15MG PO TID, FLEXERIL 10MG PO TID, [place] 100MG PO TID, CYMBALTA 60MG PO BID, XOPENEX NEBS TID PRN, SYNTHROID 50MCG PO DAILY, CLARITIN 10MG PO DAILY, REMERON 30G PO HS. (5) GERD (gastroesophageal reflux disease): Status: Chronic Qualifiers: Esophagitis presence: esophagitis presence not specified Qualified Code(s): K21.9 - Gastro-esophageal reflux disease without esophagitis (6) HTN (hypertension): Status: Chronic Qualifiers: Hypertension type: primary hypertension Qualified Code(s): I10 - Essential (primary) hypertension
[2022-01-11] MEDS: OXYCONTIN 20 MG PO SCH ×2 (11:30→20:39)
[2022-01-11] MEDS: REMERON PO SCH (20:40)
[2022-01-12 05:01] LABS: BASOPHILS % (AUTO) 0.6 % (0.2-1.0); EOSINOPHILS # (AUTO) 0.3 x10^3/uL (0.0-0.2); EOSINOPHILS % (AUTO) 5.2 % (0.9-2.9); HEMATOCRIT 29.8 % (36.0-47.0); HEMOGLOBIN 10.2 g/dL (12.0-16.0); LYMPHOCYTES # (AUTO) 1.4 X10^3/uL (1.3-2.9); LYMPHOCYTES % (AUTO) 27.7 % (21.0-51.0); MEAN CORPUSCULAR HEMOGLOBIN 30.7 pg (27.0-34.0); MEAN CORPUSCULAR HGB CONC 34.4 g/dL (33.0-35.0); MEAN CORPUSCULAR VOLUME 89.3 fL (80.0-100.0); MEAN PLATELET VOLUME 7.5 fL (7.4-11.0); MONOCYTES # (AUTO) 0.8 x10^3/uL (0.3-0.8); MONOCYTES % (AUTO) 15.5 % (0.0-13.0); NEUTROPHILS # (AUTO) 2.5 x10^3/uL (2.2-4.8); RED BLOOD COUNT 3.33 X10^6/uL (3.5-5.4); RED CELL DISTRIBUTION WIDTH 15.1 % (11.6-16.5); WHITE BLOOD COUNT 4.9 X10^3/uL (3.6-10.0)
[2022-01-12 05:09] LABS: ALANINE AMINOTRANSFERASE 16 Units/L (12-78); ALBUMIN 3.4 g/dL (3.4-5.0); ALKALINE PHOSPHATASE 119 Units/L (46-116); ASPARTATE AMINO TRANSFERASE 21 Units/L (15-37); BLOOD UREA NITROGEN 11 mg/dL (7-18); CALCIUM 8.8 mg/dL (8.5-10.1); CARBON DIOXIDE 31.6 mmol/L (21-32); CHLORIDE 100 mmol/L (98-107); CREATININE 1.19 mg/dL (0.55-1.02); MAGNESIUM 1.9 mg/dL (1.7-2.9); SODIUM 138 mmol/L (136-145); eGFR NON BLACK RACES 47 (>60)
[2022-01-12] MEDS: FLEXERIL TAB 10 MG PO SCH ×3 (05:24→21:09)
[2022-01-12] MEDS: COLACE CAP 100 MG PO SCH ×3 (05:24→21:09)
[2022-01-12] MEDS: ROXICODONE TAB 15 MG PO PRN ×3 (05:25→21:54)
[2022-01-12] MEDS ORDERED: ZOLOFT ONE (08:14)
[2022-01-12] MEDS: PROTONIX INJ 40 MG VIAL IVP SCH ×2 (08:31→20:03)
[2022-01-12] MEDS: ELIQUIS PO SCH ×2 (08:31→20:02)
[2022-01-12] MEDS: SYNTHROID 50 mcg TAB PO SCH (08:31)
[2022-01-12] MEDS: CYMBALTA PO SCH ×2 (08:32→20:02)
[2022-01-12] MEDS: CLARITIN PO SCH (08:32)
[2022-01-12] MEDS: LASIX PO SCH (08:33)
[2022-01-12] MEDS: ZESTRIL TAB 10 MG PO SCH (08:33)
[2022-01-12] MEDS: OXYCONTIN 20 MG PO SCH ×2 (08:34→20:03)
[2022-01-12] MEDS: PEPCID TAB 20 MG PO SCH (08:35)
[2022-01-12] MEDS: TOPROL XL PO SCH (08:35)
[2022-01-12] MEDS: ZOLOFT PO SCH (08:41)
[2022-01-12 11:52] VITALS: BMI 24.7
--- NOTE | 2022-01-12 12:26 | PCM.PROG ---
Progress Note Progress Note for Day of Date of Exam: 01/12/22 Subjective Subjective: PT IS A 71 YEAR OLD WHITE FEMALE WHO WAS ADMITTED OBSERVATION STATUS FOR TREATMENT OF EPIGASTRIC PAIN AND INTRACTABLE LUMBAR PAIN WITH RADIATION TO BOTH LEGS. SHE HAD AN EGD ABOUT A WEEK AND A HALF AGO WHICH REPORTEDLY REVEALED MODERATE GASTRITIS AND ESOPHAGITIS. SHE WAS FOUND TO HAVE COMPRESSION FRACTURE OF T10. THIS MORNING SHE IS SITTING ON SIDE OF BED. NO ACUTE EVENTS OVERNIGHT. LUMBAR CT REVEALED: Recent 35 percent compression fracture of T10 is probably osteoporotic compression fracture. Lumbar compression fractures appear unchanged since prior study. LABS/IMAGING: WBC 4.9, HGB 10.2, PLT 316, NA 138, K 4.0, CREATININE 1.19, GLUCOSE 86. FOLLOWING DISCHARGE, SHE WILL NEED A REFERRAL TO [facility]. SHE IS CURRENTLY RECEIVING: NORMAL SALINE AT [facility], THE POTASSIUM AND MAGNESIUM PROTOCOLS, PEPCID 20MG PO DAILY, PROTONIX 40MG IV BID, FLEXERIL 10MG PO TID, COLACE 100MG PO TID, CYMBALTA 60MG PO BID, XOPENEX NEBS TID PRN, SYNTHROID 50MCG PO DAILY, CLARITIN 10MG PO DAILY, REMERON 30G PO HS. TO MANAGE HER PAIN SYMPTOMS, SHE IS CURRENTLY ON OXYCONTIN CR 20MG PO Q12H, ROXICODONE 15MG PO Q6H PRN, AND TORADOL 15MG IV Q8H. SHE IS DOING WELL WITH CURRENT REGIMEN. ADD ENSURE FOR NUTRITIONAL SUPPORT. OTHERWISE, WE PLAN TO FOLLOW-UP WITH AM LABS AND CONTINUE TO MONITOR. Past Medical Family Social History Past Med/Fam/Surg Hx: No changes since H&P Allergies: Allergies bupropion [From Wellbutrin] Allergy (Verified 01/05/22 18:45) codeine Allergy (Verified 01/05/22 18:45) diltiazem [From Cardizem] Allergy (Verified 01/05/22 18:45) gabapentin Allergy (Verified 01/05/22 18:45) ketorolac [From Toradol] Allergy (Verified 01/09/22 10:37) meloxicam [From Mobic] Allergy (Verified 01/05/22 18:45) morphine Allergy (Verified 01/05/22 18:45) pregabalin [From Lyrica] Allergy (Verified 01/05/22 18:45) Mnsukwu-WCL-KtJ Reductase Inhibitor Allergy (Verified 01/05/22 18:45) trazodone Allergy (Verified 01/05/22 18:45) Review of Systems ROS: No change since H&P Vital Signs and I&O's Vital Signs: Temperature 99.0 F Pulse Rate [Right Brachial] 68 Pulse Rate [Left Brachial] 59 Pulse Rate 67 Respiratory Rate 18 Blood Pressure [Right Arm] 119/56 Blood Pressure [Left Arm] 123/64 Blood Pressure 138/64 O2 Sat by Pulse Oximetry 92 Intake and Output: Intake & Output 01/09/22 01/10/22 01/11/22 01/12/22 23:59 23:59 23:59 23:59 Intake Total 1559 / 1559 1800 / 1800 2099 / 2100 1247 / 1247 Balance 1559 / 1559 1800 / 1800 2099 / 2099 1247 / 1247 Physical Exam Oriented: Normal Eyes: Normal Ear: Normal Nose: Normal Throat: Normal Respiratory: Generalized and Diminished Cardiovascular: Normal : Normal Auscultation: Bowel Sounds: Normal Tenderness: Diffuse and Moderate Skin: Normal Musculoskeletal: Back:Thoracic, Back:Lumbar and Tender Psychiatric: Normal Mood Description: Calm Affect: Normal Speech Pattern: Clear and Appropriate Laboratory and Diagnostics Result Diagrams: 01/12/22 04:05 01/12/22 04:05 Labs: Laboratory WBC 4.9 X10^3/uL (3.6-10.0) 01/12/22 04:05 RBC 3.33 X10^6/uL (3.5-5.4) L 01/12/22 04:05 Hgb 10.2 g/dL (12.0-16.0) L 01/12/22 04:05 Hct 29.8 % (36.0-47.0) L 01/12/22 04:05 MCV 89.3 fL (80.0-100.0) 01/12/22 04:05 MCH 30.7 pg (27.0-34.0) 01/12/22 04:05 MCHC 34.4 g/dL (33.0-35.0) 01/12/22 04:05 RDW 15.1 % (11.6-16.5) 01/12/22 04:05 Plt Count 316 X10^3/uL (150.0-450.0) 01/12/22 04:05 MPV 7.5 fL (7.4-11.0) 01/12/22 04:05 Neut % (Auto) 51.0 % (42.0-75.0) 01/12/22 04:05 Lymph % (Auto) 27.7 % (21.0-51.0) 01/12/22 04:05 [place] % (Auto) 15.5 % (0.0-13.0) H 01/12/22 04:05 Eos % (Auto) 5.2 % (0.9-2.9) H 01/12/22 04:05 Baso % (Auto) 0.6 % (0.2-1.0) 01/12/22 04:05 Neut # (Auto) 2.5 x10^3/uL (2.2-4.8) 01/12/22 04:05 Lymph # (Auto) 1.4 X10^3/uL (1.3-2.9) 01/12/22 04:05 [place] # (Auto) 0.8 x10^3/uL (0.3-0.8) 01/12/22 04:05 Eos # (Auto) 0.3 x10^3/uL (0.0-0.2) H 01/12/22 04:05 Baso # (Auto) 0.0 X10^3/uL (0.0-0.1) 01/12/22 04:05 Absolute Nucleated RBC 0.1 /100WBC 01/12/22 04:05 PT 14.9 SECONDS (11.8-14.3) 01/05/22 19:35 INR Target Range - 01/05/22 19:35 INR 1.21 (0.8-1.3) 01/05/22 19:35 APTT 33.8 SECONDS (22.9-36.5) 01/05/22 19:35 PTT Comment - 01/05/22 19:35 Sodium 138 mmol/L (136-145) 01/12/22 04:05 Corrected Sodium TNP 01/12/22 04:05 Potassium 4.0 mmol/L (3.5-5.1) 01/12/22 04:05 Chloride 100 mmol/L (98-107) 01/12/22 04:05 Carbon Dioxide 31.6 mmol/L (21-32) 01/12/22 04:05 BUN 11 mg/dL (7-18) 01/12/22 04:05 Creatinine 1.19 mg/dL (0.55-1.02) H 01/12/22 04:05 Est GFR (MDRD) Af Amer 57 (>60) L 01/12/22 04:05 Est GFR (MDRD) Non-Af 47 (>60) L 01/12/22 04:05 Glucose 86 mg/dL (65-99) 01/12/22 04:05 Calcium 8.8 mg/dL (8.5-10.1) 01/12/22 04:05 Corrected Calcium TNP 01/12/22 04:05 Magnesium 1.9 mg/dL (1.7-2.9) 01/12/22 04:05 Total Bilirubin 0.40 mg/dL (0.2-1.0) 01/12/22 04:05 AST 21 Units/L (15-37) 01/12/22 04:05 ALT 16 Units/L (12-78) 01/12/22 04:05 Alkaline Phosphatase 119 Units/L (46-116) H 01/12/22 04:05 Creatine Kinase 142 Units/L (26-192) 01/06/22 10:37 CK-MB (CK-2) 2.9 ng/mL (0-4.0) 01/06/22 10:37 CK/CKMB % Calc 2.0 % (<4) 01/06/22 10:37 Troponin I High Sens 40.9 ng/L (4.0-60.0) 01/06/22 10:37 B-Natriuretic Peptide 502 pg/mL (0-79) H* 01/08/22 05:40 Total Protein 7.0 g/dL (6.4-8.2) 01/12/22 04:05 Albumin 3.4 g/dL (3.4-5.0) 01/12/22 04:05 Globulin 3.6 g/dL (2.5-4.5) 01/12/22 04:05 Albumin/Globulin Ratio 0.9 Ratio (1.1-2.1) L 01/12/22 04:05 Triglycerides 93 mg/dL (0-150) 01/06/22 05:25 Cholesterol 178 mg/dL (0-200) 01/06/22 05:25 LDL Cholesterol, Calc 105 mg/dL (0-100) H 01/06/22 05:25 HDL Cholesterol 54 mg/dL (40-60) 01/06/22 05:25 Cholesterol/HDL Ratio 3.3 (0.0-5.0) 01/06/22 05:25 Specimen Type Clean catch urine 01/05/22 19:19 Urine Color Yellow (YELLOW) 01/05/22 19:19 Urine Appearance Clear (CLEAR) 01/05/22 19:19 Urine pH 5.0 (5.0 - 8.0) 01/05/22 19:19 Ur Specific [place] 1.015 (1.000-1.030) 01/05/22 19:19 Urine Protein Negative (NEGATIVE) 01/05/22 19:19 Urine Glucose (UA) Negative (NEGATIVE) 01/05/22 19:19 Urine Ketones Negative (NEGATIVE) 01/05/22 19:19 Urine Blood 2+ (NEGATIVE) 01/05/22 19:19 Urine Nitrite Negative (NEGATIVE) 01/05/22 19:19 Urine Bilirubin Negative (NEGATIVE) 01/05/22 19:19 Urine Urobilinogen Normal (NORMAL) 01/05/22 19:19 Ur Leukocyte Esterase Negative (NEGATIVE) 01/05/22 19:19 Urine RBC 3-5 /HPF (0-3) A 01/05/22 19:19 Urine WBC 3-5 /HPF (0-5) 01/05/22 19:19 Ur Squamous Epith Cells Few /HPF (NEGATIVE) 01/05/22 19:19 Urine Bacteria Negative /HPF (NEGATIVE) 01/05/22 19:19 Hyaline Casts Few /LPF (NEGATIVE) 01/05/22 19:19 Ur Culture Indicated? No/not indicated 01/05/22 19:19 Stool H. pylori Ag Negative (NEGATIVE) 01/06/22 15:29 SARS-CoV-2 (PCR) Negative (NEGATIVE) 01/05/22 22:53 Plan (1) Epigastric pain: Status: Acute Plan: NORMAL SALINE AT [facility], THE POTASSIUM AND MAGNESIUM PROTOCOLS, PEPCID 20MG PO DAILY, PROTONIX 40MG IV BID, PERCOCET 5/325MG 2 TAB Q6H PRN, ROXICODONE 15MG PO Q6H PRN, OXYCONTIN CR 20MG PO BID, TORADOL 15MG IV Q8H, FLEXERIL 10MG PO TID, COLACE 100MG PO TID, CYMBALTA 60MG PO BID, XOPENEX NEBS TID PRN, SYNTHROID 50MCG PO DAILY, CLARITIN 10MG PO DAILY, REMERON 30G PO HS. (2) Lumbar pain with radiation down both legs: Status: Acute Plan: OBTAIN LUMBAR SPINE CT (3) SOB (shortness of breath): Status: Acute (4) Elevated troponin: Status: Resolved Plan: ADMIT, SERIAL CARDIAC ENZYMES AND EKGS, NORMAL SALINE AT [facility], THE POTASSIUM AND MAGNESIUM PROTOCOLS, PEPCID 20MG IV BID, PROTONIX 40MG IV BID, PERCOCET 5/325MG 2 TAB Q6H PRN, ROXICODONE 15MG PO TID, FLEXERIL 10MG PO TID, COLACE 100MG PO TID, CYMBALTA 60MG PO BID, XOPENEX NEBS TID PRN, SYNTHROID 50MCG PO DAILY, CLARITIN 10MG PO DAILY, REMERON 30G PO HS. (5) GERD (gastroesophageal reflux disease): Status: Chronic Qualifiers: Esophagitis presence: esophagitis presence not specified Qualified Code(s): K21.9 - Gastro-esophageal reflux disease without esophagitis (6) HTN (hypertension): Status: Chronic Qualifiers: Hypertension type: primary hypertension Qualified Code(s): I10 - Essential (primary) hypertension
[2022-01-12] MEDS: NS 1,000 ML IV 1,000 ML IV SCH (19:25)
[2022-01-12] MEDS: REMERON PO SCH (20:03)
[2022-01-13] MEDS: NS 1,000 ML IV 1,000 ML IV SCH ×2 (03:25→20:08)
[2022-01-13 04:55] LABS: BASOPHILS % (AUTO) 0.5 % (0.2-1.0); EOSINOPHILS # (AUTO) 0.2 x10^3/uL (0.0-0.2); EOSINOPHILS % (AUTO) 4.5 % (0.9-2.9); HEMATOCRIT 26.8 % (36.0-47.0); HEMOGLOBIN 9.4 g/dL (12.0-16.0); LYMPHOCYTES # (AUTO) 1.2 X10^3/uL (1.3-2.9); LYMPHOCYTES % (AUTO) 23.9 % (21.0-51.0); MEAN CORPUSCULAR HEMOGLOBIN 30.9 pg (27.0-34.0); MEAN CORPUSCULAR HGB CONC 34.9 g/dL (33.0-35.0); MEAN CORPUSCULAR VOLUME 88.3 fL (80.0-100.0); MEAN PLATELET VOLUME 7.4 fL (7.4-11.0); MONOCYTES # (AUTO) 0.8 x10^3/uL (0.3-0.8); MONOCYTES % (AUTO) 15.1 % (0.0-13.0); NEUTROPHILS # (AUTO) 2.8 x10^3/uL (2.2-4.8); RED BLOOD COUNT 3.03 X10^6/uL (3.5-5.4); RED CELL DISTRIBUTION WIDTH 15.2 % (11.6-16.5)
[2022-01-13] MEDS: ROXICODONE TAB 15 MG PO PRN ×3 (04:59→19:07)
[2022-01-13] MEDS: FLEXERIL TAB 10 MG PO SCH ×3 (04:59→21:59)
[2022-01-13] MEDS: COLACE CAP 100 MG PO SCH ×3 (04:59→21:59)
[2022-01-13 05:04] LABS: ALANINE AMINOTRANSFERASE 14 Units/L (12-78); ALKALINE PHOSPHATASE 108 Units/L (46-116); ASPARTATE AMINO TRANSFERASE 19 Units/L (15-37); BLOOD UREA NITROGEN 13 mg/dL (7-18); CALCIUM 8.4 mg/dL (8.5-10.1); CARBON DIOXIDE 31.5 mmol/L (21-32); CHLORIDE 102 mmol/L (98-107); COR CA(FOR HYPOALB) 9.2 mg/dL (8.5-10.1); CREATININE 1.06 mg/dL (0.55-1.02); SODIUM 138 mmol/L (136-145); TOTAL PROTEIN 6.2 g/dL (6.4-8.2); eGFR NON BLACK RACES 54 (>60)
[2022-01-13] MEDS ORDERED: ZOLOFT ONE (08:38)
[2022-01-13] MEDS: LASIX PO SCH (08:45)
[2022-01-13] MEDS: CLARITIN PO SCH (08:45)
[2022-01-13] MEDS: ELIQUIS PO SCH ×2 (08:45→20:38)
[2022-01-13] MEDS: CYMBALTA PO SCH ×2 (08:45→20:38)
[2022-01-13] MEDS: PEPCID TAB 20 MG PO SCH (08:46)
[2022-01-13] MEDS: OXYCONTIN 20 MG PO SCH ×2 (08:46→20:38)
[2022-01-13] MEDS: SYNTHROID 50 mcg TAB PO SCH (08:47)
[2022-01-13] MEDS: TOPROL XL PO SCH (08:47)
[2022-01-13] MEDS: ZESTRIL TAB 10 MG PO SCH ×2 (08:47→15:55)
[2022-01-13] MEDS: PROTONIX INJ 40 MG VIAL IVP SCH ×2 (08:47→20:38)
[2022-01-13] MEDS: ZOLOFT PO SCH (08:48)
--- NOTE | 2022-01-13 17:47 | PCM.PROG ---
Progress Note - Progress Note for Day of Date of Exam: 01/13/22 - Subjective Subjective: IS A 71 YEAR OLD WHITE FEMALE WHO IS CURRENTLY BEING TREATED FOR EPIGASTRIC PAIN AND INTRACTABLE LUMBAR PAIN WITH RADIATION TO BOTH LEGS. SHE HAD AN EGD ABOUT TWO WEEKS AGO WHICH REPORTEDLY REVEALED MODERATE GASTRITIS AND ESOPHAGITIS. LUMBAR SPINE CT REVEALED: Recent 35 percent comp ression fracture of T10 is probably osteoporotic compression fracture. Lumbar compression fractures appear unchanged since prior study. TODAY, SHE IS ALERT AND ORIENTED, LYING IN BED ON MORNING ROUNDS. SHE CONTINUES WITH COMPLAINTS OF EPIGASTRIC PAIN AND MID TO LOW BACK PAIN. BACK PAIN IS WORSE WITH MOVEMENT AND IS INCREASED TODAY. IT MODERATELY LIMITS ACTIVITIES. PATIENT IS UNABLE TO AMBULATE MUCH AT ALL WITHOUT SEVERE PAIN. SHE DENIES SHORTNESS OF BREATH AND IS CURRENTLY ON ROOM AIR. SATURATIONS HAVE BEEN IN THE 90s. ON EXAMINATION, HEART IS REGULAR IN RATE AND RHYTHM. BILATERAL LUNGS NOTED WITH DIMINISHED LUNG SOUNDS THROUGHOUT. ABDOMEN IS ROUND, SOFT, AND NOTED WITH EPIGASTRIC TENDERNESS. NORMAL BOWEL SOUNDS NOTED IN ALL QUADRANTS. MODERATE TENDERNESS NOTED TO THE LUMBAR AND THORACIC SPINE. PAIN IS WORSE AT THE LOWER THORACIC REGION. NO UPPER OR LOWER EXTREMITY EDEMA NOTED. HER VITALS THIS MORNING ARE: 97.6-72-18-99%-151/67. LABS WERE OBTAINED. WBC 5.0, RBC 3.03, HGB 9.4, HCT 26.8, SODIUM 138, POTASSIUM 3.7, CHLORIDE 102, BUN 13, CREATININE 1.06, GLUCOSE 96, CALCIUM 8.4, AST 19, ALT 14, ALK PHOS 108, TOTAL PROTEIN 6.2, ALBUMIN 3.0. STOOL IS NEGATIVE FOR H.PYLORI. SHE IS SCHEDULED FOR A FOLLOW-UP APPOINTMENT WITH , [facility]TH[facility]ED[facility] SURGEON ON 01/15/22 IN [place], [place]. SHE IS CURRENTLY RECEIVING: NORMAL SALINE AT [facility], THE POTASSIUM AND MAGNESIUM PROTOCOLS, PEPCID 20MG PO DAILY, PROTONIX 40MG IV BID, OXYCONTIN CR 20MG PO Q12H, ROXICODONE 15MG PO Q6H PRN, FLEXERIL 10MG PO TID, COLACE 100MG PO TID, CYMBALTA 60MG PO BID, XOPENEX NEBS TID PRN, SYNTHROID 50MCG PO DAILY, CLARITIN 10MG PO DAILY, REMERON 30G PO HS. OTHERWISE, WE PLAN TO FOLLOW-UP WITH AM LABS AND CONTINUE TO MONITOR. TIME SPENT ON CLINICAL ASSESSMENT, REVIEWING LABS AND IMAGING, DECISION MAKING, AND DOCUMENTATION GREATER THAN 45 MINUTES. - Past Medical Family Social History Past Med/Fam/Surg Hx: No changes since H&P Allergies: Allergies bupropion [From Wellbutrin] Allergy (Verified 01/05/22 18:45) codeine Allergy (Verified 01/05/22 18:45) diltiazem [From Cardizem] Allergy (Verified 01/05/22 18:45) gabapentin Allergy (Verified 01/05/22 18:45) ketorolac [From Toradol] Allergy (Verified 01/09/22 10:37) meloxicam [From Mobic] Allergy (Verified 01/05/22 18:45) morphine Allergy (Verified 01/05/22 18:45) pregabalin [From Lyrica] Allergy (Verified 01/05/22 18:45) Agtrydo-KYH-QdE Reductase Inhibitor Allergy (Verified 01/05/22 18:45) trazodone Allergy (Verified 01/05/22 18:45) - Review of Systems ROS: No change since H&P - Vital Signs and I&O's Vital Signs: Temperature 98.6 F Pulse Rate [Right Brachial] 72 Pulse Rate [Left Brachial] 59 Pulse Rate 67 Respiratory Rate 20 Blood Pressure [Right Arm] 120/57 Blood Pressure [Left Arm] 123/64 Blood Pressure 138/64 O2 Sat by Pulse Oximetry 95 Intake and Output: Intake & Output 01/11/22 01/12/22 01/13/22 01/14/22 11:59 11:59 11:59 11:59 Intake Total 2300 / 2300 2247 / 2247 3839 / 3839 740 / 740 Balance 2300 / 2300 2247 / 2247 3839 / 3839 740 / 740 - Physical Exam Oriented: Normal Eyes: Normal Ear: Normal Nose: Normal Throat: Normal Respiratory: Generalized, Diminished Cardiovascular: Normal : Normal Auscultation: Bowel Sounds: Normal Tenderness: Diffuse, Moderate Skin: Normal Musculoskeletal: Back:Thoracic, Back:Lumbar, Tender Psychiatric: Normal Mood Description: Calm Affect: Normal Speech Pattern: Clear, Appropriate - Laboratory and Diagnostics Result Diagrams: 01/13/22 04:05 01/13/22 04:05 Labs: Laboratory WBC 5.0 X10^3/uL (3.6-10.0) 01/13/22 04:05 RBC 3.03 X10^6/uL (3.5-5.4) L 01/13/22 04:05 Hgb 9.4 g/dL (12.0-16.0) L 01/13/22 04:05 Hct 26.8 % (36.0-47.0) L 01/13/22 04:05 MCV 88.3 fL (80.0-100.0) 01/13/22 04:05 MCH 30.9 pg (27.0-34.0) 01/13/22 04:05 MCHC 34.9 g/dL (33.0-35.0) 01/13/22 04:05 RDW 15.2 % (11.6-16.5) 01/13/22 04:05 Plt Count 271 X10^3/uL (150.0-450.0) 01/13/22 04:05 MPV 7.4 fL (7.4-11.0) 01/13/22 04:05 Neut % (Auto) 56.0 % (42.0-75.0) 01/13/22 04:05 Lymph % (Auto) 23.9 % (21.0-51.0) 01/13/22 04:05 [place] % (Auto) 15.1 % (0.0-13.0) H 01/13/22 04:05 Eos % (Auto) 4.5 % (0.9-2.9) H 01/13/22 04:05 Baso % (Auto) 0.5 % (0.2-1.0) 01/13/22 04:05 Neut # (Auto) 2.8 x10^3/uL (2.2-4.8) 01/13/22 04:05 Lymph # (Auto) 1.2 X10^3/uL (1.3-2.9) L 01/13/22 04:05 [place] # (Auto) 0.8 x10^3/uL (0.3-0.8) 01/13/22 04:05 Eos # (Auto) 0.2 x10^3/uL (0.0-0.2) 01/13/22 04:05 Baso # (Auto) 0.0 X10^3/uL (0.0-0.1) 01/13/22 04:05 Absolute Nucleated RBC 0.0 /100WBC 01/13/22 04:05 PT 14.9 SECONDS (11.8-14.3) 01/05/22 19:35 INR Target Range - 01/05/22 19:35 INR 1.21 (0.8-1.3) 01/05/22 19:35 APTT 33.8 SECONDS (22.9-36.5) 01/05/22 19:35 PTT Comment - 01/05/22 19:35 Sodium 138 mmol/L (136-145) 01/13/22 04:05 Corrected Sodium TNP 01/13/22 04:05 Potassium 3.7 mmol/L (3.5-5.1) 01/13/22 04:05 Chloride 102 mmol/L (98-107) 01/13/22 04:05 Carbon Dioxide 31.5 mmol/L (21-32) 01/13/22 04:05 BUN 13 mg/dL (7-18) 01/13/22 04:05 Creatinine 1.06 mg/dL (0.55-1.02) H 01/13/22 04:05 Est GFR (MDRD) Af Amer > 60 (>60) 01/13/22 04:05 Est GFR (MDRD) Non-Af 54 (>60) L 01/13/22 04:05 Glucose 96 mg/dL (65-99) 01/13/22 04:05 Calcium 8.4 mg/dL (8.5-10.1) L 01/13/22 04:05 Corrected Calcium 9.2 mg/dL (8.5-10.1) 01/13/22 04:05 Magnesium 1.9 mg/dL (1.7-2.9) 01/12/22 04:05 Total Bilirubin 0.20 mg/dL (0.2-1.0) 01/13/22 04:05 AST 19 Units/L (15-37) 01/13/22 04:05 ALT 14 Units/L (12-78) 01/13/22 04:05 Alkaline Phosphatase 108 Units/L (46-116) 01/13/22 04:05 Creatine Kinase 142 Units/L (26-192) 01/06/22 10:37 CK-MB (CK-2) 2.9 ng/mL (0-4.0) 01/06/22 10:37 CK/CKMB % Calc 2.0 % (<4) 01/06/22 10:37 Troponin I High Sens 40.9 ng/L (4.0-60.0) 01/06/22 10:37 B-Natriuretic Peptide 502 pg/mL (0-79) H* 01/08/22 05:40 Total Protein 6.2 g/dL (6.4-8.2) L 01/13/22 04:05 Albumin 3.0 g/dL (3.4-5.0) L 01/13/22 04:05 Globulin 3.2 g/dL (2.5-4.5) 01/13/22 04:05 Albumin/Globulin Ratio 0.9 Ratio (1.1-2.1) L 01/13/22 04:05 Triglycerides 93 mg/dL (0-150) 01/06/22 05:25 Cholesterol 178 mg/dL (0-200) 01/06/22 05:25 LDL Cholesterol, Calc 105 mg/dL (0-100) H 01/06/22 05:25 HDL Cholesterol 54 mg/dL (40-60) 01/06/22 05:25 Cholesterol/HDL Ratio 3.3 (0.0-5.0) 01/06/22 05:25 Specimen Type Clean catch urine 01/05/22 19:19 Urine Color Yellow (YELLOW) 01/05/22 19:19 Urine Appearance Clear (CLEAR) 01/05/22 19:19 Urine pH 5.0 (5.0 - 8.0) 01/05/22 19:19 Ur Specific [place] 1.015 (1.000-1.030) 01/05/22 19:19 Urine Protein Negative (NEGATIVE) 01/05/22 19:19 Urine Glucose (UA) Negative (NEGATIVE) 01/05/22 19:19 Urine Ketones Negative (NEGATIVE) 01/05/22 19:19 Urine Blood 2+ (NEGATIVE) 01/05/22 19:19 Urine Nitrite Negative (NEGATIVE) 01/05/22 19:19 Urine Bilirubin Negative (NEGATIVE) 01/05/22 19:19 Urine Urobilinogen Normal (NORMAL) 01/05/22 19:19 Ur Leukocyte Esterase Negative (NEGATIVE) 01/05/22 19:19 Urine RBC 3-5 /HPF (0-3) A 01/05/22 19:19 Urine WBC 3-5 /HPF (0-5) 01/05/22 19:19 Ur Squamous Epith Cells Few /HPF (NEGATIVE) 01/05/22 19:19 Urine Bacteria Negative /HPF (NEGATIVE) 01/05/22 19:19 Hyaline Casts Few /LPF (NEGATIVE) 01/05/22 19:19 Ur Culture Indicated? No/not indicated 01/05/22 19:19 Stool H. pylori Ag Negative (NEGATIVE) 01/06/22 15:29 SARS-CoV-2 (PCR) Negative (NEGATIVE) 01/05/22 22:53 - Plan (1) Epigastric pain Status: Acute Plan: NORMAL SALINE AT [facility], THE POTASSIUM AND MAGNESIUM PROTOCOLS, PEPCID 20MG PO DAILY, PROTONIX 40MG IV BID, OXYCONTIN CR 20MG PO Q12H, ROXICODONE 15MG PO Q6H PRN, FLEXERIL 10MG PO TID, COLACE 100MG PO TID, CYMBALTA 60MG PO BID, XOPENEX NEBS TID PRN, SYNTHROID 50MCG PO DAILY, CLARITIN 10MG PO DAILY, REMERON 30G PO HS. (2) Lumbar pain with radiation down both legs Status: Acute (3) SOB (shortness of breath) Status: Acute (4) Elevated troponin Status: Resolved (5) GERD (gastroesophageal reflux disease) Status: Chronic Qualifiers: Esophagitis presence: esophagitis presence not specified Qualified Code(s): K21.9 - Gastro-esophageal reflux disease without esophagitis (6) HTN (hypertension) Status: Chronic Qualifiers: Hypertension type: primary hypertension Qualified Code(s): I10 - Essential (primary) hypertension
[2022-01-13] MEDS: ZOFRAN INJ 4 MG VIAL IVP PRN (17:50)
[2022-01-13] MEDS: REMERON PO SCH (20:38)
[2022-01-14] MEDS: ROXICODONE TAB 15 MG PO PRN ×3 (00:50→11:45)
[2022-01-14] MEDS: NS 1,000 ML IV 1,000 ML IV SCH (04:10)
[2022-01-14 04:49] LABS: BASOPHILS % (AUTO) 0.7 % (0.2-1.0); EOSINOPHILS # (AUTO) 0.2 x10^3/uL (0.0-0.2); EOSINOPHILS % (AUTO) 5.1 % (0.9-2.9); HEMATOCRIT 25.4 % (36.0-47.0); HEMOGLOBIN 8.8 g/dL (12.0-16.0); LYMPHOCYTES # (AUTO) 1.3 X10^3/uL (1.3-2.9); LYMPHOCYTES % (AUTO) 30.8 % (21.0-51.0); MEAN CORPUSCULAR HEMOGLOBIN 30.9 pg (27.0-34.0); MEAN CORPUSCULAR HGB CONC 34.4 g/dL (33.0-35.0); MEAN CORPUSCULAR VOLUME 89.7 fL (80.0-100.0); MEAN PLATELET VOLUME 7.6 fL (7.4-11.0); MONOCYTES # (AUTO) 0.7 x10^3/uL (0.3-0.8); MONOCYTES % (AUTO) 15.7 % (0.0-13.0); NEUTROPHILS % (AUTO) 47.7 % (42.0-75.0); RED BLOOD COUNT 2.84 X10^6/uL (3.5-5.4); RED CELL DISTRIBUTION WIDTH 15.6 % (11.6-16.5); WHITE BLOOD COUNT 4.2 X10^3/uL (3.6-10.0)
[2022-01-14 05:14] LABS: ALANINE AMINOTRANSFERASE 10 Units/L (12-78); ALBUMIN 2.8 g/dL (3.4-5.0); ALKALINE PHOSPHATASE 100 Units/L (46-116); ASPARTATE AMINO TRANSFERASE 18 Units/L (15-37); BLOOD UREA NITROGEN 14 mg/dL (7-18); CARBON DIOXIDE 31.2 mmol/L (21-32); CHLORIDE 104 mmol/L (98-107); COR NA(FOR HYPERGLY) 139 mmol/L (136-145); CREATININE 1.08 mg/dL (0.55-1.02); SODIUM 139 mmol/L (136-145); TOTAL PROTEIN 5.9 g/dL (6.4-8.2); eGFR NON BLACK RACES 53 (>60)
[2022-01-14] MEDS: FLEXERIL TAB 10 MG PO SCH ×2 (06:04→13:00)
[2022-01-14] MEDS: COLACE CAP 100 MG PO SCH ×2 (06:04→13:00)
[2022-01-14] MEDS ORDERED: ZOLOFT ONE (07:40)
[2022-01-14] MEDS: ZOFRAN INJ 4 MG VIAL IVP PRN (08:33)
[2022-01-14] MEDS: PROTONIX INJ 40 MG VIAL IVP SCH (08:51)
[2022-01-14] MEDS: CLARITIN PO SCH (08:52)
[2022-01-14] MEDS: TOPROL XL PO SCH (08:52)
[2022-01-14] MEDS: CYMBALTA PO SCH (08:53)
[2022-01-14] MEDS: ZESTRIL TAB 10 MG PO SCH (08:53)
[2022-01-14] MEDS: ELIQUIS PO SCH (08:53)
[2022-01-14] MEDS: SYNTHROID 50 mcg TAB PO SCH (08:53)
[2022-01-14] MEDS: LASIX PO SCH (08:54)
[2022-01-14] MEDS: ZOLOFT PO SCH (08:54)
[2022-01-14] MEDS: PEPCID TAB 20 MG PO SCH (08:56)
[2022-01-14] MEDS: OXYCONTIN 20 MG PO SCH (08:58)
[2022-01-14 12:54] VITALS: BP 148/70
== END 2022-01-14 14:50 | disposition home health service (06) ==
LOC: MED/SURG 18:30 → ER 18:30 → MED/SURG 23:55
PROVIDERS: ADMIT Internal Medicine; ATTEND Internal Medicine
DX: J44.9 Chronic obstructive pulmonary disease, unspecified; M79.605 Pain in left leg; R07.89 Other chest pain; Z20.822 Contact with and (suspected) exposure to COVID-19; Z87.898 Personal history of other specified conditions; K21.9 Gastro-esophageal reflux disease without esophagitis; R10.84 Generalized abdominal pain; S22.000A Wedge compression fracture of unspecified thoracic vertebra, initial encounter for closed fracture; Z79.899 Other long term (current) drug therapy; M79.604 Pain in right leg; R94.31 Abnormal electrocardiogram [ECG] [EKG]; I10 Essential (primary) hypertension; M54.59 Other low back pain; R06.02 Shortness of breath; R10.13 Epigastric pain; I50.9 Heart failure, unspecified; K57.30 Diverticulosis of large intestine without perforation or abscess without bleeding; R77.8 Other specified abnormalities of plasma proteins